=== PATIENT | female | born 1950 | race Caucasian/White ===

== ENCOUNTER → 2017-03-26 | Outpatient (CLI) | payer OTHER ==
--- NOTE | 2017-03-26 14:56 | MAMMOGRAPHY REPORT ---
BILATERAL DIGITAL SCREENING MAMMOGRAM WITH CAD: 03/26/2017 CLINICAL HISTORY: Routine screening. Patient has no complaints. TECHNIQUE: Current study was also evaluated with a Computer Aided Detection (CAD) system. Bilateral CC and MLO views were obtained. COMPARISON: Comparison is made to exams dated: 03/13/2016 mammogram, 02/13/2015 mammogram, 01/19/2014 m ammogram, 12/14/2012 mammogram, 12/30/2011 mammogram, and 12/19/2010 mammogram - [facility] nter. BREAST COMPOSITION: There are scattered areas of fibroglandular density in both breasts. FINDINGS: No suspicious masses, calcifications, or areas of architectural distortion are noted in ei ther breast. There has been no significant interval change compared to prior exams. IMPRESSION: ACR BI-RADS CATEGORY 1: NEGATIVE There is no mammographic evidence of malignancy. A 1 year screening mammogram is recommended. The pa tient will receive written notification of the results. Approximately 10% of breast cancers are not detected with mammography. A negative mammographic report should not delay biopsy if a clinically suggestive mass is present. Yenifer Lock M.D. /:03/26/2017 14:49:23 Forest Officer: Ashutosh Leigh, M, [facility] letter sent: Normal 1/2 BI-RADS Code: ACR BI-RADS Category 1: Negative
== END | disposition home or self-care (01) ==
LOC: C.MAMM 14:09
PROVIDERS: ATTEND Obstetrics & Gynecology
DX: Z12.31 Encounter for screening mammogram for malignant neoplasm of breast (principal)

== ENCOUNTER 2023-05-31 20:19 | Observation (INO) ==
--- NOTE | 2023-05-31 21:23 | Emergency Department Note ---
Impression & Plan Hypertensive urgency, Atypical chest pain ED Provider Note Provider: Mustapha Cartagena MD DATE OF SERVICE: 05/31/2023 CHIEF COMPLAINT: Hypertension, chest discomfort HISTORY OF PRESENT ILLNESS: Patient is a 72-year-old female history of crest syndrome and hypothyroidism presenting here today noting that she has had some high blood pressure readings. This evening however when she was taking her evening blood pressure was significantly elevated in the 180s systolic. States that she is been following at the last several days after meeting with her technical support analyst. As noted previously was in the 130s and 140s systolic. Not on current antihypertensive medications. Reports she saw this and began to panic and be feel anxious. CT lipid discomfort the chest but not true pain. Denies difficulty breathing. Maybe a little bit of tension headaches recently. Denies any new numbness or tingling or significant dizziness. Denies any GI symptoms. States also contributing is the fact that her was at home at the time and she felt safe. Given this came here for evaluation. States he is feeling a good bit better right now. States having little to no tightness in the chest but again denies its pain. No other radiation of pain or discomfort. Does have some stress with family members having surgeries and upcoming travel. Has been try to watch her diet and exercise. Denies again significant use of caffeine or other stimulants. PAST MEDICAL HISTORY: As noted above MEDICATIONS: Reviewed with her home medications at bedside SOCIAL HISTORY: PHYSICAL EXAM: GENERAL: alert and oriented in no acute distress on stretcher Head: normocephalic and atraumatic EYES: No injection, discharge or icterus. NECK: Trachea midline. Supple. ENT: Mucous membranes pink and moist. LUNGS: Airway patent. No retractions or tachypnea. Clear to auscultation HEART: Regular rate and rhythm. No chest wall tenderness ABDOMEN: Soft and non-tender, without guarding or rebound. SKIN: Acyanotic, warm, dry, without rashes EXTREMITIES: Without swelling, tenderness or deformity NEUROLOGICAL: No focal deficits. No aphasia. No facial droop or slurred speech. Ambulatory. EK bpm sinus rhythm with occasional PVCs and PACs. No acute ST segment elevation. QTc 383. Some nonspecific ST changes. CONTINUOUS CARDIAC MONITORING: was ordered and showed a heart rate of 70s-80s bp m in normal sinus rhythm 1 view chest x-ray per my interpretation: No significant cardiomegaly. No evidence of pneumonia, pulmonary edema, pneumothorax, or pleural effusion. No free air under the diaphragm. Patient's laboratory studies and imaging reviewed. Differential includes Benign hypertension, hypertensive emergency, cardiovascular pathology, toxicologic, pheochromocytoma, electrolyte ab normality, renal disease, endorgan damage, as well as other pathologies. IMPRESSION/MEDICAL DECISION MAKING: Patient well-appearing. No focal neurological deficits. Denies significant headache. Maybe little bit of "chest discomfort "but denies true pain. EKG without significant acute ischemic findings. Troponin was sent. Is noted to be somewhat hypertensive here. No syncope or near syncope reported. No significant leg swelling. Chest x-ray appears reassuring on my review without evidence of cardiomegaly or pulmonary edema. Does report some increased blood pressure readings recently but much more tonight. Some component of stress and anxiety may be at play. Doubt CVA. Doubt PE. Benign abdomen doubt acute intra-abdominal pathology. Blood work without significant anemia or leukocytosis. Slight CKD with creatinine 1.26. No signs of liver dysfunction. No signs of pancreatitis. Troponin and TSH completed as well. TSH is slightly elevated 8.2. Troponin returns at 33.2. No priors for comparison here. Negative urinalysis. [facility] Baseline creatinine is 1.2 so she stable. Blood pressure continues to trend in the 170s to 180s systolic here with elevated diastolics as well. Discussed with patient and who is now at bedside findings. Discussed options of observation versus outpatient therapy. Given her uncontrolled hypertension with elevated troponin and still a little bit of discomfort in the chest they did not feel comfortable going home and discussed with the hospitalist stay for observation and care here. Given a dose of labetalol here to try to help with hypertension. This did cause some improvement of blood pressures improving to the 140 systolic. DIAGNOSIS: Hypertensive urgency, atypical chest pain DISPOSITION: Discharge. Patient was agreeable with this plan. Discussed return precautions and advised follow up. Past Med/Surg History Medical History (Updated 05/31/23 @ 22:09 by Mustapha Cartagena M.D.) Pneumonia Surgical History History of D&C History of laparoscopy Diagnostic History of total abdominal hysterectomy Family History Aunt Breast cancer Father Lung cancer Denies family history of Ovarian cancer Colorectal cancer Social History Smoking Status: Never smoker Do You Dip or Chew Tobacco: No; Preferred Language: Wallisian Feels Safe at Home: Yes Allergies Allergies Allergy/AdvReac Type Severity Reaction Status Date / Time No Known Drug Allergies Allergy Unknown Verified 05/31/23 20:58 Home Meds Home Medications Medication Instructions Recorded Confirmed multivitamin (Daily Multi-Vitamin 1 tab PO DAILY 08/02/19 05/31/23 tablet) pantoprazole 40 mg tablet,delayed 40 mg PO BID 08/02/19 05/31/23 release atorvastatin 10 mg tablet 10 mg PO DAILY 05/31/23 05/31/23 levothyroxine 50 mcg tablet 50 mcg PO DAILYBB 05/31/23 05/31/23 Results & Data (ED) Vital Signs Vital Signs - 24 hr 05/31/23 20:23 05/31/23 20:52 05/31/23 20:31 Temperature 36.6 C Temperature Source Temporal Artery Scan Pulse Rate 76 73 79 Pulse Rate from SpO2 Sensor Pulse Rhythm Regular Respiratory Rate 18 13 Respiratory Effort / Characteristics Non-Labored Spontaneous Respiratory Depth Normal Respiratory Pattern Regular Blood Pressure 199/97 H 179/90 H Blood Pressure Mean 131 119 Blood Pressure Position Sitting Pulse Oximetry 100 Oxygen Delivery Method Room Air Room Air Sepsis Recent Fever Within 48 Hours No Sepsis New/Unexplained Change in Mental Status N/A Sepsis Action Taken by Nursing No Action Required 05/31/23 20:49 05/31/23 21:01 05/31/23 21:04 Temperature Temperature Source Pulse Rate 87 78 79 Pulse Rate from SpO2 Sensor 76 79 Pulse Rhythm Respiratory Rate 15 20 14 Respiratory Effort / Characteristics Respiratory Depth Respiratory Pattern Blood Pressure 182/97 H 182/90 H 185/123 H Blood Pressure Mean 125 120 143 Blood Pressure Position Pulse Oximetry 98 100 Oxygen Delivery Method Room Air Room Air Sepsis Recent Fever Within 48 Hours Sepsis New/Unexplained Change in Mental Status Sepsis Action Taken by Nursing 05/31/23 21:30 05/31/23 21:30 05/31/23 22:00 Temperature Temperature Source Pulse Rate 69 Pulse Rate from SpO2 Sensor Pulse Rhythm Respiratory Rate 15 Respiratory Effort / Characteristics Respiratory Depth Respiratory Pattern Blood Pressure 176/108 H 176/108 H 175/92 H Blood Pressure Mean 145 130 133 Blood Pressure Position Pulse Oximetry Oxygen Delivery Method Sepsis Recent Fever Within 48 Hours Sepsis New/Unexplained Change in Mental Status Sepsis Action Taken by Nursing 05/31/23 22:00 05/31/23 22:30 05/31/23 22:30 Temperature Temperature Source Pulse Rate 70 73 Pulse Rate from SpO2 Sensor 70 75 Pulse Rhythm Respiratory Rate 13 22 Respiratory Effort / Characteristics Respiratory Depth Respiratory Pattern Blood Pressure 175/92 H 162/113 H Blood Pressure Mean 119 131 Blood Pressure Position Pulse Oximetry 99 98 Oxygen Delivery Method Sepsis Recent Fever Within 48 Hours Sepsis New/Unexplained Change in Mental Status Sepsis Action Taken by Nursing 05/31/23 22:34 05/31/23 22:34 05/31/23 22:39 Temperature Temperature Source Pulse Rate 71 73 Pulse Rate from SpO2 Sensor 67 Pulse Rhythm Respiratory Rate 18 Respiratory Effort / Characteristics Respiratory Depth Respiratory Pattern Blood Pressure 163/77 H 163/77 H Blood Pressure Mean 130 Blood Pressure Position Pulse Oximetry 99 98 Oxygen Delivery Method Room Air Sepsis Recent Fever Within 48 Hours Sepsis New/Unexplained Change in Mental Status Sepsis Action Taken by Nursing 05/31/23 22:50 05/31/23 20:20 Temperature Temperature Source Pulse Rate 61 82 Pulse Rate from SpO2 Sensor Pulse Rhythm Respiratory Rate 20 Respiratory Effort / Characteristics Respiratory Depth Respiratory Pattern Blood Pressure 140/72 Blood Pressure Mean 94 Blood Pressure Position Pulse Oximetry Oxygen Delivery Method Sepsis Recent Fever Within 48 Hours Sepsis New/Unexplained Change in Mental Status Sepsis Action Taken by Nursing Laboratory Data 05/31/23 20:38 05/31/23 20:38 Lab Results 05/31/23 05/31/23 05/31/23 Range/Units 20:38 20:38 20:38 WBC 5.55 (4.8-10.8) K/ul RBC 4.58 (4.20-5.40) M/uL Hgb 14.5 (12.0-16.0) g/dl Hct 44.1 (37.0-47.0) % MCV 96.3 (80.0-100.0) fL MCH 31.7 (25.0-34.0) pg MCHC 32.9 (32.0-36.0) g/dL RDW Std Deviation 44.4 (36.4-46.3) fL RDW Coeff of Toni 12.5 (11.5-14.5) % Plt Count 176 (130-400) K/uL MPV 9.4 (9.4-12.4) fL Immature Gran % (Auto) 0.4 % Neut % (Auto) 52.8 % Lymph % (Auto) 36.0 % [place] % (Auto) 8.3 % Eos % (Auto) 2.0 % Baso % (Auto) 0.5 % Neut # (Auto) 2.93 (1.40-6.50) K/uL Lymph # (Auto) 2.00 (1.20-3.40) K/uL [place] # (Auto) 0.46 (0.11-0.59) K/uL Eos # (Auto) 0.11 (0.00-0.50) K/uL Baso # (Auto) 0.03 (0.00-0.20) K/uL Immature Gran # (Auto) 0.02 (0.01-0.20) K/uL APTT 27.7 (21.0-31.0) Seconds PTT Ratio 1.0 Sodium 137 (136-145) mmol/L Potassium 3.9 (3.5-5.1) mmol/L Chloride 104 (98-107) mmol/L Carbon Dioxide 27 (21-32) mmol/L Anion Gap 6 (3-11) BUN 26 H (6-23) mg/dl Creatinine 1.26 H (0.6-1.2) mg/dl Est Cr Clr Drug Dosing 34.3 ml/min Est GFR ( Amer) 48.9 ml/min Est GFR (Non-Af Amer) 42.2 ml/min BUN/Creatinine Ratio 20.6 H (10-20) Glucose 130 H (70-99(Fasting)) mg/dl Calcium 9.6 (8.6-10.3) mg/dl Magnesium 2.0 (1.7-2.4) mg/dl Total Bilirubin 0.8 (0.2-1.0) mg/dl AST 26 (13-39) U/L ALT 17 (7-52) U/L Alkaline Phosphatase 63 (34-104) U/L Troponin I High Sens 33.2 H (0-14) pg/ml Total Protein 8.0 (6.0-8.3) gm/dl Albumin 4.8 (3.4-5.0) gm/dl Globulin 3.2 (2.5-4.0) gm/dl Albumin/Globulin Ratio 1.5 (0.9-2) Lipase 49 (11-82) U/L TSH 8.279 H (0.300-4.500) uIu/ml Free T4 0.86 (0.61-1.60) ng/dl Urine Color Urine Appearance (Clear) Urine pH (4.5-7.5) Ur Specific [place] (1.000-1.030) Urine Protein (Negative) Urine Glucose (UA) (Negative) Urine Ketones (Negative) Urine Blood (Negative) Urine Nitrite (Negative) Urine Bilirubin (Negative) Urine Urobilinogen (Negative) Ur Leukocyte Esterase (Negative) 05/31/23 Range/Units 21:19 WBC (4.8-10.8) K/ul RBC (4.20-5.40) M/uL Hgb (12.0-16.0) g/dl Hct (37.0-47.0) % MCV (80.0-100.0) fL MCH (25.0-34.0) pg MCHC (32.0-36.0) g/dL RDW Std Deviation (36.4-46.3) fL RDW Coeff of Toni (11.5-14.5) % Plt Count (130-400) K/uL MPV (9.4-12.4) fL Immature Gran % (Auto) % Neut % (Auto) % Lymph % (Auto) % [place] % (Auto) % Eos % (Auto) % Baso % (Auto) % Neut # (Auto) (1.40-6.50) K/uL Lymph # (Auto) (1.20-3.40) K/uL [place] # (Auto) (0.11-0.59) K/uL Eos # (Auto) (0.00-0.50) K/uL Baso # (Auto) (0.00-0.20) K/uL Immature Gran # (Auto) (0.01-0.20) K/uL APTT (21.0-31.0) Seconds PTT Ratio Sodium (136-145) mmol/L Potassium (3.5-5.1) mmol/L Chloride (98-107) mmol/L Carbon Dioxide (21-32) mmol/L Anion Gap (3-11) BUN (6-23) mg/dl Creatinine (0.6-1.2) mg/dl Est Cr Clr Drug Dosing ml/min Est GFR ( Amer) ml/min Est GFR (Non-Af Amer) ml/min BUN/Creatinine Ratio (10-20) Glucose (70-99(Fasting)) mg/dl Calcium (8.6-10.3) mg/dl Magnesium (1.7-2.4) mg/dl Total Bilirubin (0.2-1.0) mg/dl AST (13-39) U/L ALT (7-52) U/L Alkaline Phosphatase (34-104) U/L Troponin I High Sens (0-14) pg/ml Total Protein (6.0-8.3) gm/dl Albumin (3.4-5.0) gm/dl Globulin (2.5-4.0) gm/dl Albumin/Globulin Ratio (0.9-2) Lipase (11-82) U/L TSH (0.300-4.500) uIu/ml Free T4 (0.61-1.60) ng/dl Urine Color Yellow Urine Appearance Clear (Clear) Urine pH 7.5 (4.5-7.5) Ur Specific [place] 1.005 (1.000-1.030) Urine Protein Negative (Negative) Urine Glucose (UA) Negative (Negative) Urine Ketones Negative (Negative) Urine Blood Negative (Negative) Urine Nitrite Negative (Negative) Urine Bilirubin Negative (Negative) Urine Urobilinogen Negative (Negative) Ur Leukocyte Esterase Negative (Negative) Administered Medications Discontinued Medications Labetalol HCl (Labetalol Hcl Iv 5 Mg/Ml 20ml) 10 mg IV NOW STA Stop: 05/31/23 22:00 Last Admin: 05/31/23 22:39 Dose: 10 mg Documented By: Co-signed By: CYDNEY Discharge Plan Visit Data Chief Complaint: Hypertension Stated Complaint: HIGH BP, CHEST TIGHTNESS ED Provider: Mustapha Cartagena Discharge Problem: Hypertensive urgency, Atypical chest pain Patient Disposition: Being Evaluated by Hospitalist Forms Stand Alone Forms: My [facility] Prescriptions Prescriptions: No Action pantoprazole 40 mg tablet,delayed release (DR/EC) 40 mg PO BID multivitamin [Daily Multi-Vitamin] tablet 1 tab PO DAILY atorvastatin 10 mg tablet 10 mg PO DAILY levothyroxine 50 mcg tablet 50 mcg PO DAILYBB Referrals Referrals: Jah Manriquez, [Primary Care Provider] -
[2023-05-31 21:24] LABS: Basophils # (auto) 0.03 K/uL (0.00-0.20); Basophils % (auto) 0.5 %; Eosinophils # (auto) 0.11 K/uL (0.00-0.50); Hematocrit (blood only) 44.1 % (37.0-47.0); Hemoglobin 14.5 g/dl (12.0-16.0); Immature Granulocytes # (auto) 0.02 K/uL (0.01-0.20); Immature Granulocytes % (auto) 0.4 %; Mean Corpuscular Hemoglobin 31.7 pg (25.0-34.0); Mean Corpuscular Hgb Conc 32.9 g/dL (32.0-36.0); Mean Corpuscular Volume 96.3 fL (80.0-100.0); Mean Platelet Volume 9.4 fL (9.4-12.4); Monocytes # (auto) 0.46 K/uL (0.11-0.59); Monocytes % (auto) 8.3 %; Neutrophils # (auto) 2.93 K/uL (1.40-6.50); Neutrophils % (auto) 52.8 %; Platelet Count 176 K/uL (130-400); RDW Coefficient of Variation 12.5 % (11.5-14.5); RDW Standard Deviation 44.4 fL (36.4-46.3); Red Blood Count 4.58 M/uL (4.20-5.40); White Blood Count 5.55 K/ul (4.8-10.8)
[2023-05-31 21:26] LABS: Albumin Globulin Ratio 1.5 (0.9-2); Albumin Level 4.8 gm/dl (3.4-5.0); BUN Creatinine Ratio 20.6 (10-20); Bilirubin,Total 0.8 mg/dl (0.2-1.0); Calcium 9.6 mg/dl (8.6-10.3); Creatinine Clr Calc Pharmacy 34.3 ml/min; Est GFR (African American) 48.9 ml/min; Est GFR (Non-African American) 42.2 ml/min; Globulin 3.2 gm/dl (2.5-4.0); Potassium 3.9 mmol/L (3.5-5.1)
[2023-05-31 21:33] LABS: Troponin I High Sensitivity 33.2 pg/ml (0-14)
[2023-05-31 21:41] LABS: Appearance Urine Clear (Clear); Bilirubin Urine Negative (Negative); Blood Urine Negative (Negative); Color Urine Yellow; Glucose Urine UA Negative (Negative); Ketones Urine Negative (Negative); Leukocyte Esterase Urine Negative (Negative); Nitrite Urine Negative (Negative); Protein Urine Negative (Negative); Specific Gravity Urine 1.005 (1.000-1.030); Urobilinogen Urine Negative (Negative); pH Urine 7.5 (4.5-7.5)
[2023-05-31 21:42] LABS: Thyroid Stimulating Hormone 8.279 uIu/ml (0.300-4.500)
[2023-05-31] MEDS ORDERED: LABETALOL HCL IV 5 MG/ML 20ML IV STA (21:59)
[2023-05-31 22:18] LABS: T4 Free Thyroxine 0.86 ng/dl (0.61-1.60)
[2023-05-31 23:14] LABS: Partial Thromboplastin Time 27.7 Seconds (21.0-31.0)
[2023-05-31] MEDS ORDERED: hydrOXYzine HCl 10 MG TAB PO PRN (23:50)
[2023-05-31] MEDS ORDERED: SODIUM CHLORIDE 0.9% 1,000 ML IV ONE (23:50)
[2023-06-01] MEDS ORDERED: NITROGLYCERIN SL 0.4 MG/TAB TAB SL PRN (00:13)
[2023-06-01] MEDS ORDERED: ASPIRIN CHEW 324 MG PO STA (01:02)
--- NOTE | 2023-06-01 02:44 | History & Physical Report ---
Date of Service June 01, 2023 Assessment & Plan (1) Hypertensive crisis: Plan: Probable chronic BP elevation with note of LVH on outpatient TTEs Anxiety contributory NTSEMI, progressive troponin elevation PSVT, no recent episodes. hyperlipidemia, on statin Rx hypothyroidism, TSH elevated CRI, creatinine at baseline GERD, stable on PPI hx CREST syndrome Hyperglycemia rule out DM PCU Aspirin and statin Rx for secondary CAD prevention Initiate beta-filipe, IV heparin TTE, Cardiology consult RE NSTEMI N.p.o. until patient seen by cardiology limits invasive ischemic work-up Update lipid profile Check hemoglobin A1c DVT prophylaxis. Heparin Full code Text document was generated using [employer] recognition software. It may contain grammatical or spelling errors. Kindly contact undersigned for clarification of any documentation item in question. History of Present Illness Chief Complaint: Chest pain, uncontrolled blood pressure Primary Care Provider: Jah Manriquez, History obtained from patient and records. Medical history significant for PSVT, hyperlipidemia, hypothyroidism, CRI (baseline creatinine 1.3), GERD, CREST syndrome. Patient seen at [facility]phrology office last month for CKD follow-up. SBP noted to be 150s. Blood pressure also noted to be elevated during dentist appointment few weeks back. Patient instructed to record her blood pressure at home by nephrology provider. Patient started recording home blood pressure readings since last week. SBP 140s to 160s. Intermittent frontal headache symptoms and posterior neck pain. Admits to being an anxious person. Some worries about family members undergoing elective surgery this month. SBP noted to be 180 in the 200s at home tonight. Transient headache symptoms. Patient noted substernal tightness without shortness of breath or radiation. No unusual cough symptoms. Patient consulted ER for evaluation. SBP 190s upon arrival at the ER. IV labetalol administered at the ER. SBP currently 150s. Patient currently comfortable. Aspirin administered at the ER. 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 Allergies Allergy/AdvReac Type Severity Reaction Status Date / Time No Known Drug Allergies Allergy Unknown Verified 05/31/23 20:58 Home Medications Medication Instructions Recorded Confirmed Type multivitamin (Daily Multi-Vitamin 1 tab PO DAILY 08/02/19 05/31/23 History tablet) pantoprazole 40 mg tablet,delayed 40 mg PO BID 12/10/19 10/08/23 History release atorvastatin 10 mg tablet 10 mg PO HS 05/31/23 06/01/23 History levothyroxine 50 mcg tablet 50 mcg PO DAILYBB 05/31/23 05/31/23 History Past Med/Surg History Medical History (Updated 06/01/23 @ 02:53 by Tyrone Davila MD) Pneumonia Surgical History History of D&C History of laparoscopy Diagnostic History of total abdominal hysterectomy Family History Aunt Breast cancer Father Lung cancer Denies family history of Ovarian cancer Colorectal cancer Social History Smoking Status: Never smoker Do You Dip or Chew Tobacco: No; Preferred Language: Albanian Feels Safe at Home: Yes Review of Systems Review of Systems: As per HPI, all other systems reviewed and negative Physical Exam Physical Exam: GENERAL: Comfortable, pleasant, slightly anxious, looks younger than stated age, no respiratory distress SKIN: Normal color, warm HEENT: Bespectacled, [place] palpebral conjunctivae, no ptosis, moist buccal mucosa NECK : Supple, no tenderness CHEST : CTA, no tenderness HEART : RRR, no obvious murmurs ABDOMEN: no distention, nontender EXTREMITIES : No LE swelling/tenderness, no other conspicuous deformities noted NEUROLOGIC : Coherent, no facial asymmetry, no other gross focality Results & Data Results & Data Vital Signs (Past 12 Hours) Vital Signs Temp Pulse Resp BP Pulse Ox O2 Del Method 06/01/23 01:30 76 15 134/71 06/01/23 01:30 134/71 06/01/23 00:20 69 06/01/23 01:00 74 14 142/72 H 97 Room Air 06/01/23 00:00 75 12 140/70 95 05/31/23 22:50 61 140/72 05/31/23 23:30 77 18 152/81 H 05/31/23 23:00 63 20 131/80 05/31/23 20:20 82 05/31/23 22:50 61 20 140/72 05/31/23 22:39 73 163/77 H 05/31/23 22:34 71 18 163/77 H 98 Room Air 05/31/23 22:34 99 05/31/23 22:30 73 22 98 05/31/23 22:30 162/113 H 05/31/23 22:00 70 13 175/92 H 99 05/31/23 22:00 175/92 H 05/31/23 21:30 69 15 176/108 H 05/31/23 21:30 176/108 H 05/31/23 21:04 79 14 185/123 H 100 Room Air 05/31/23 21:01 78 20 182/90 H 98 Room Air 05/31/23 20:49 87 15 182/97 H 05/31/23 20:31 79 13 179/90 H 05/31/23 20:52 73 Room Air 05/31/23 20:23 36.6 C 76 18 199/97 H 100 Room Air Laboratory Results Laboratory Results WBC 5.55 K/ul (4.8-10.8) 05/31/23 20:38 RBC 4.58 M/uL (4.20-5.40) 05/31/23 20:38 Hgb 14.5 g/dl (12.0-16.0) 05/31/23 20:38 Hct 44.1 % (37.0-47.0) 05/31/23 20:38 MCV 96.3 fL (80.0-100.0) 05/31/23 20:38 MCH 31.7 pg (25.0-34.0) 05/31/23 20:38 MCHC 32.9 g/dL (32.0-36.0) 05/31/23 20:38 RDW Std Deviation 44.4 fL (36.4-46.3) 05/31/23 20:38 RDW Coeff of Toni 12.5 % (11.5-14.5) 05/31/23 20:38 Plt Count 176 K/uL (130-400) 05/31/23 20:38 MPV 9.4 fL (9.4-12.4) 05/31/23 20:38 Immature Gran % (Auto) 0.4 % 05/31/23 20:38 Neut % (Auto) 52.8 % 05/31/23 20:38 Lymph % (Auto) 36.0 % 05/31/23 20:38 [place] % (Auto) 8.3 % 05/31/23 20:38 Eos % (Auto) 2.0 % 05/31/23 20:38 Baso % (Auto) 0.5 % 05/31/23 20:38 Neut # (Auto) 2.93 K/uL (1.40-6.50) 05/31/23 20:38 Lymph # (Auto) 2.00 K/uL (1.20-3.40) 05/31/23 20:38 [place] # (Auto) 0.46 K/uL (0.11-0.59) 05/31/23 20:38 Eos # (Auto) 0.11 K/uL (0.00-0.50) 05/31/23 20:38 Baso # (Auto) 0.03 K/uL (0.00-0.20) 05/31/23 20:38 Immature Gran # (Auto) 0.02 K/uL (0.01-0.20) 05/31/23 20:38 APTT 27.7 Seconds (21.0-31.0) 05/31/23 20:38 PTT Ratio 1.0 05/31/23 20:38 Sodium 137 mmol/L (136-145) 05/31/23 20:38 Potassium 3.9 mmol/L (3.5-5.1) 05/31/23 20:38 Chloride 104 mmol/L (98-107) 05/31/23 20:38 Carbon Dioxide 27 mmol/L (21-32) 05/31/23 20:38 Anion Gap 6 (3-11) 05/31/23 20:38 BUN 26 mg/dl (6-23) H 05/31/23 20:38 Creatinine 1.26 mg/dl (0.6-1.2) H 05/31/23 20:38 Est Cr Clr Drug Dosing 34.3 ml/min 05/31/23 20:38 Est GFR ( Amer) 48.9 ml/min 05/31/23 20:38 Est GFR (Non-Af Amer) 42.2 ml/min 05/31/23 20:38 BUN/Creatinine Ratio 20.6 (10-20) H 05/31/23 20:38 Glucose 130 mg/dl (70-99(Fasting)) H 05/31/23 20:38 Calcium 9.6 mg/dl (8.6-10.3) 05/31/23 20:38 Magnesium 2.0 mg/dl (1.7-2.4) 05/31/23 20:38 Total Bilirubin 0.8 mg/dl (0.2-1.0) 05/31/23 20:38 AST 26 U/L (13-39) 05/31/23 20:38 ALT 17 U/L (7-52) 05/31/23 20:38 Alkaline Phosphatase 63 U/L (34-104) 05/31/23 20:38 Troponin I High Sens 477.4 pg/ml (0-14) H* D 05/31/23 23:03 Total Protein 8.0 gm/dl (6.0-8.3) 05/31/23 20:38 Albumin 4.8 gm/dl (3.4-5.0) 05/31/23 20:38 Globulin 3.2 gm/dl (2.5-4.0) 05/31/23 20:38 Albumin/Globulin Ratio 1.5 (0.9-2) 05/31/23 20:38 Lipase 49 U/L (11-82) 05/31/23 20:38 TSH 8.279 uIu/ml (0.300-4.500) H 05/31/23 20:38 Free T4 0.86 ng/dl (0.61-1.60) 05/31/23 20:38 Urine Color Yellow 05/31/23 21:19 Urine Appearance Clear (Clear) 05/31/23 21:19 Urine pH 7.5 (4.5-7.5) 05/31/23 21:19 Ur Specific [place] 1.005 (1.000-1.030) 05/31/23 21:19 Urine Protein Negative (Negative) 05/31/23 21:19 Urine Glucose (UA) Negative (Negative) 05/31/23 21:19 Urine Ketones Negative (Negative) 05/31/23 21:19 Urine Blood Negative (Negative) 05/31/23 21:19 Urine Nitrite Negative (Negative) 05/31/23 21:19 Urine Bilirubin Negative (Negative) 05/31/23 21:19 Urine Urobilinogen Negative (Negative) 05/31/23 21:19 Ur Leukocyte Esterase Negative (Negative) 05/31/23 21:19 CT head: Diagnostic Findings Chest x-ray as per my interpretation no infiltrate no congestion EKG as per my interpretation :Rate 80, NSR, normal axis, ST depression lateral leads, PVCs
--- NOTE | 2023-06-01 02:56 | CT Scan Report ---
Exam(s): CT HEAD Without Contrast EXAM: CT Head Without Intravenous Contrast CLINICAL HISTORY: Reason for exam: bull, htn crisis. TECHNIQUE: Axial computed tomography images of the head/brain without intravenous contrast. CTDI is 75.29 mGy and DLP is 781.9 mGy-cm. Automated exposure control was utilized for the study. A dose lowering technique was utilized adhering to the principles of ALARA. COMPARISON: No relevant prior studies available. FINDINGS: Brain: Minimal periventricular white matter changes, likely related to microangiopathy. No hemorrhage. Ventricles: Unremarkable. No ventriculomegaly. Bones/joints: Unremarkable. No acute fracture. Soft tissues: Unremarkable. Sinuses: Unremarkable as visualized. No acute sinusitis. Mastoid air cells: Unremarkable as visualized. No mastoid effusion. IMPRESSION: Minimal periventricular white matter changes, likely related to microangiopathy. Electronically signed by: Santy Nguyen M.D. 06/01/23 02:55 AM
[2023-06-01] MEDS ORDERED: traMADol HCL 50 MG TABLET PO PRN (03:18)
[2023-06-01] MEDS ORDERED: PROMETHAZINE HCL 6.25 MG in SODIUM CHLORIDE 0.9% 50 ML IV PRN (03:18)
[2023-06-01] MEDS ORDERED: HYDROmorphone INJ 0.5 MG/0.5 ML SYR IV PRN (03:18)
[2023-06-01] MEDS ORDERED: Heparin IV Adult Wt-Based Standard *NO* Bolus Protocol IV SCH (03:23)
[2023-06-01] MEDS: HEPARIN SODIUM/DEXTROSE 25,000 UNITS/500 ML BAG IV SCH (04:56)
[2023-06-01 06:10] LABS: Basophils # (auto) 0.02 K/uL (0.00-0.20); Basophils % (auto) 0.4 %; Eosinophils # (auto) 0.04 K/uL (0.00-0.50); Eosinophils % (auto) 0.8 %; Hematocrit (blood only) 38.5 % (37.0-47.0); Hemoglobin 12.9 g/dl (12.0-16.0); Immature Granulocytes # (auto) 0.01 K/uL (0.01-0.20); Immature Granulocytes % (auto) 0.2 %; Lymphocytes # (auto) 1.24 K/uL (1.20-3.40); Lymphocytes % (auto) 23.9 %; Mean Corpuscular Hemoglobin 31.5 pg (25.0-34.0); Mean Corpuscular Hgb Conc 33.5 g/dL (32.0-36.0); Mean Corpuscular Volume 94.1 fL (80.0-100.0); Mean Platelet Volume 9.1 fL (9.4-12.4); Monocytes # (auto) 0.51 K/uL (0.11-0.59); Monocytes % (auto) 9.8 %; Neutrophils # (auto) 3.37 K/uL (1.40-6.50); Neutrophils % (auto) 64.9 %; Platelet Count 155 K/uL (130-400); RDW Coefficient of Variation 12.5 % (11.5-14.5); RDW Standard Deviation 43.4 fL (36.4-46.3); Red Blood Count 4.09 M/uL (4.20-5.40); White Blood Count 5.19 K/ul (4.8-10.8)
[2023-06-01 06:17] LABS: Calcium 8.7 mg/dl (8.6-10.3); Creatinine Clr Calc Pharmacy 43.2 ml/min; Est GFR (African American) 64.7 ml/min; Est GFR (Non-African American) 55.8 ml/min; Potassium 3.9 mmol/L (3.5-5.1)
[2023-06-01 06:25] LABS: Troponin I High Sensitivity 625.1 pg/ml (0-14)
[2023-06-01] MEDS: LEVOTHYROXINE SODIUM 50 MCG TABLET PO SCH (06:33)
--- NOTE | 2023-06-01 07:39 | Cardiology Consultation ---
Date of Consultation June 01, 2023 Assessment & Plan (1) Hypertensive urgency: (2) CREST syndrome: (3) Elevated troponin: (4) Mitral regurgitation: (5) MVP (mitral valve prolapse): Plan Impression: 72-year-old female with symptomatic hypertension. Echocardiogram with normal LV systolic function and mild concentric LVH. Moderate to severe MR with mitral leaflet prolapse, possibly due to significant hypertension. Elevated troponin peaking at 690, likely in the setting of demand/markedly elevated blood pressures however increased risk for coronary disease with crest syndrome. Plan: Blood pressures remain hypertensive. Start lisinopril 2.5 mg daily. Continue metoprolol tartrate 12.5 mg twice daily. Continue aspirin 81 mg daily and statin therapy for cardiovascular risk reduction. Once blood pressures are controlled consider stress testing to rule out Ischemic cause. Okay to advance diet. Case discussed with Dr. Jones, will follow. Supervising Physician Co-Signing Physician Notes Patient seen and personally examined. Patient hospitalized with acute worsening hypertension blood pressures are being treated now trending towards better contr ol. Mild breathlessness and chest tightness at times but no prior history of myocardial infarction or injury. EKG and echocardiogram without evidence of myocardial infarction Troponins are however significantly elevated. 1. Severe hypertension hypertensive urgency possible association with known history of crest syndrome. Medications begun as above will likely need upward titration with careful follow-up of renal function 2. Moderate to severe mitral insufficiency will follow closely no signs of heart failure on exam 3. Elevated troponin question secondary to hypertension future investigation stress test versus diagnostic cardiac catheterization depending on clinical course serial EKGs ordered 4. Crest syndrome: Acute renal insufficiency and marked hypertension not uncommon complication History of Present Illness Reason for Consultation: Hypertension Requesting Physician: Zack uriostegui Attending Physician: Nicole aDvis MD History of Present Illness 72-year-old female with past medical history as noted below presented to [facility] emergency department due to markedly elevated blood pressures with systolics ranging in the 180s to 200s. Patient was symptomatic with headaches and substernal chest tightness. Treated with IV labetalol in the emergency department. Hypertension is a relatively new diagnosis for her. Was recently seen by her air liaison and special staff with an elevated blood pressure and again by her dentist. Over the last week she has been watching her blood pressures at home noting systolics averaging in the 140s to 150s. This morning blood pressure was 180/90 which concerned her given her symptoms. She is not currently on any antihypertensive medications at home. Workup thus far: Renal function/electrolytes and CBC stable. TSH elevated with normal free T4. Elevated high-sensitivity troponin (33.2>>477.4>>690.7>>625.1). EKG showing SR, nonspecific T wave changes Echo: LVEF normal at 60 to 65% without wall motion abnormality. Mild concentric LVH. Moderate to severe MR. Mild TR. No pulmonary hypertension. Head CT without acute findings/hemorrhage. CXR clear. Upon entrance into the room patient resting comfortably in bed. No acute distress. Continues to have some mild chest tightness which she attributes to stress and anxiety. No exertional chest pain. No shortness of breath. Denies palpitations no lightheadedness or dizziness. No orthopnea or PND. No lower extremity edema. Tele: NSR 60s Past medical history: History of symptomatic palpitations secondary to PACs/PVCs and paroxysmal SVT Hyperlipidemia Hypothyroidism Crest syndrome Raynaud's CKD (baseline scr 1.3) GERD Allergies Allergy/AdvReac Type Severity Reaction Status Date / Time No Known Drug Allergies Allergy Unknown Verified 05/31/23 20:58 Home Medications Medication Instructions Recorded Confirmed Type multivitamin (Daily Multi-Vitamin 1 tab PO DAILY 08/02/19 05/31/23 History tablet) pantoprazole 40 mg tablet,delayed 40 mg PO BID 08/02/19 05/31/23 History release atorvastatin 10 mg tablet 10 mg PO HS 05/31/23 06/01/23 History levothyroxine 50 mcg tablet 50 mcg PO DAILYBB 05/31/23 05/31/23 History Patient History Medical History (Updated 06/01/23 @ 11:47 by COLBY Garcia) Pneumonia Surgical History History of D&C History of laparoscopy Diagnostic History of total abdominal hysterectomy Family History Aunt Breast cancer Father Lung cancer Denies family history of Ovarian cancer Colorectal cancer Social History Smoking Status: Never smoker Do You Dip or Chew Tobacco: No; Hx Alcohol Use: No Hx Substance Use: No Preferred Language: Serbian Communication Ability: Effective 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 Beliefs That Will Affect Care: Tenriism Current Living Situation: Spouse Other Information That Helps Us Care for You: No Feels Safe at Home: Yes Safety Concerns: Feels Safe At This Time Review of Systems Review of Systems: All systems reviewed & are unremarkable except as noted in HPI & below Physical Exam Constitutional: WD/WN, vitals as above no acute distress Eyes: PERRL, conjunctivae normal, anicteric sclerae ENMT: external ear and nose normal, oropharynx normal Neck: normal visual inspection and trachea midline Respiratory: normal respiratory effort, lungs clear to auscultation Cardiovascular: Rate/Rhythm: regular rate and regular rhythm Heart Sounds: normal S1, normal S2 and + murmur (+systolic murmur) Vessels: no JVD Extremities: no edema Gastrointestinal (Abdomen): normal bowel sounds, soft, nontender, no hepatosplenomegaly Psychiatric: A+Ox3, euthymic affect Results & Data Vital Signs (Past 12 Hours) Vital Signs Temp Pulse Resp BP Pulse Ox O2 Del Method 06/01/23 07:22 70 06/01/23 06:30 61 15 96 Room Air 06/01/23 06:30 134/77 06/01/23 06:39 Room Air 06/01/23 06:00 60 17 134/66 96 Room Air 06/01/23 05:00 63 15 154/81 H 99 Room Air 06/01/23 04:30 83 18 165/84 H 98 Room Air 06/01/23 04:11 76 15 177/93 H 98 Room Air 06/01/23 03:00 63 17 120/62 06/01/23 03:47 54 L 06/01/23 02:30 67 16 143/80 H 06/01/23 02:00 68 15 130/68 06/01/23 01:30 76 15 134/71 06/01/23 01:30 134/71 06/01/23 00:20 69 06/01/23 01:00 74 14 142/72 H 97 Room Air 06/01/23 00:00 75 12 140/70 95 05/31/23 22:50 61 140/72 05/31/23 23:30 77 18 152/81 H 05/31/23 23:00 63 20 131/80 05/31/23 20:20 82 05/31/23 22:50 61 20 140/72 05/31/23 22:39 73 163/77 H 05/31/23 22:34 71 18 163/77 H 98 Room Air 05/31/23 22:34 99 05/31/23 22:30 73 22 98 05/31/23 22:30 162/113 H 05/31/23 22:00 70 13 175/92 H 99 05/31/23 22:00 175/92 H 05/31/23 21:30 69 15 176/108 H 05/31/23 21:30 176/108 H 05/31/23 21:04 79 14 185/123 H 100 Room Air 05/31/23 21:01 78 20 182/90 H 98 Room Air 05/31/23 20:49 87 15 182/97 H 05/31/23 20:31 79 13 179/90 H 05/31/23 20:52 73 Room Air 05/31/23 20:23 36.6 C 76 18 199/97 H 100 Room Air Laboratory Results Cardiac Enzymes 05/31/23 05/31/23 06/01/23 Range/Units 20:38 23:03 02:28 AST 26 (13-39) U/L Troponin I High Sens 33.2 H 477.4 H* D 690.7 H* D (0-14) pg/ml 06/01/23 Range/Units 05:39 AST (13-39) U/L Troponin I High Sens 625.1 H* (0-14) pg/ml Coagulation 05/31/23 06/01/23 Range/Units 20:38 10:33 APTT 27.7 72.0 H* (21.0-31.0) Seconds Lipids 06/01/23 Range/Units 05:39 Triglycerides 54 (0-150) mg/dl Cholesterol 146 (0-200) mg/dl HDL Cholesterol 72 mg/dl Cholesterol/HDL Ratio 2.0 (0-5) CBC 05/31/23 06/01/23 Range/Units 20:38 05:39 WBC 5.55 5.19 (4.8-10.8) K/ul RBC 4.58 4.09 L (4.20-5.40) M/uL Hgb 14.5 12.9 (12.0-16.0) g/dl Hct 44.1 38.5 (37.0-47.0) % Plt Count 176 155 (130-400) K/uL Neut # (Auto) 2.93 3.37 (1.40-6.50) K/uL Lymph # (Auto) 2.00 1.24 (1.20-3.40) K/uL [place] # (Auto) 0.46 0.51 (0.11-0.59) K/uL Eos # (Auto) 0.11 0.04 (0.00-0.50) K/uL Baso # (Auto) 0.03 0.02 (0.00-0.20) K/uL Comprehensive Metabolic Panel 05/31/23 06/01/23 Range/Units 20:38 05:39 Sodium 137 141 (136-145) mmol/L Potassium 3.9 3.9 (3.5-5.1) mmol/L Chloride 104 110 H (98-107) mmol/L Carbon Dioxide 27 24 (21-32) mmol/L BUN 26 H 21 (6-23) mg/dl Creatinine 1.26 H 1.00 (0.6-1.2) mg/dl Glucose 130 H 108 H (70-99(Fasting)) mg/dl Calcium 9.6 8.7 (8.6-10.3) mg/dl AST 26 (13-39) U/L ALT 17 (7-52) U/L Alkaline Phosphatase 63 (34-104) U/L Total Protein 8.0 (6.0-8.3) gm/dl Albumin 4.8 (3.4-5.0) gm/dl Intake and Output 05/31/23 06/01/23 06/01/23 22:59 06:59 14:59 Intake Total 0 / 0 Balance 0 / 0 Intake: Oral 0 / 0 Other: Weight 54.6 kg 54.7 kg Weight Measurement Method Chair Scale Built in [facility] Diagnostic Findings Echo 06/01/2023: LVEF 60 to 65% without wall motion abnormalities. Mild concentric LVH. Basal septum thickened consistent with sigmoid septum. Mitral valve leaflets are mildly thickened with borderline prolapse of the posterior leaflet. Moderate to severe MR. Mild TR. No pulmonary hypertension Outpatient echocardiogram 10/29/2021 The examination is adequate to evaluate the referral indication. The left ventricular cavity size is normal. The LV wall thickness is mildly increased (concentric). The left ventricular wall motion is normal. The qualitative LV ejection fraction is 60-64% (normal). The left ventricular diastolic function is moderately abnormal (grade II). Mild tricuspid regurgitation is present. The estimated pulmonary artery systolic pressure is 30-35mm Hg.
--- NOTE | 2023-06-01 07:44 | XRay Report ---
XR chest 1V portable HISTORY: 72 years-old Female Hypertension, CP acute chest pain with hypertension COMPARISON: None TECHNIQUE: AP view of the chest FINDINGS: Cardiomediastinal and hilar silhouettes are within normal limits. No pneumothorax, pleural effusion, airspace consolidation or pulmonary edema. Bones appear grossly intact. Mild dextroscoliosis of the t horacolumbar junction. IMPRESSION: No acute process. ACT 112: Negative or not required by law. The above report was generated using voice recognition software. It may contain grammatical, syntax o r spelling errors. Electronically signed by: Duarte Beck M.D. 06/01/2023 7:42 AM
[2023-06-01 07:51] LABS: Estimated Average Glucose 117 mg/dl; Hemoglobin A1C 5.7 % (4.5-5.6)
[2023-06-01] MEDS: METOPROLOL TARTRATE 25 MG TAB PO SCH ×2 (08:34→20:37)
[2023-06-01] MEDS: MULTIVITAMIN TAB PO SCH (08:34)
[2023-06-01] MEDS: PANTOprazole 40 MG TAB PO SCH ×2 (08:34→20:38)
[2023-06-01 11:34] LABS: Partial Thromboplastin Ratio 2.6
[2023-06-01] MEDS ORDERED: lisinopril 2.5 MG TAB PO SCH (11:45)
--- NOTE | 2023-06-01 12:30 | Electrocardiogram Report ---
Test Reason : Blood Pressure : / mmHG Vent. Rate : 082 BPM Atrial Rate : 082 BPM P-R Int : 120 ms QRS Dur : 076 ms QT Int : 328 ms P-R-T Axes : 058 073 040 degrees QTc Int : 383 ms Sinus rhythm with occasional Premature ventricular complexes and Premature atrial complexes Nonspecific ST and T wave abnormality Abnormal ECG No previous ECGs available Confirmed by Ok Morse ([id number]) on 06/01/2023 12:30:00 PM Referred By: REFERRED SELF Confirmed By:Ok Morse
--- NOTE | 2023-06-01 12:35 | Electrocardiogram Report ---
Test Reason : Blood Pressure : / mmHG Vent. Rate : 067 BPM Atrial Rate : 067 BPM P-R Int : 142 ms QRS Dur : 084 ms QT Int : 410 ms P-R-T Axes : 075 014 044 degrees QTc Int : 433 ms Normal sinus rhythm Septal infarct , age undetermined Abnormal ECG When compared with ECG of 31-MAY-2023 20:28, (unconfirmed) Premature ventricular complexes are no longer Present Premature atrial complexes are no longer Present Nonspecific T wave abnormality, improved in Inferior leads T wave amplitude has increased in Lateral leads Confirmed by Ok Morse ([id number]) on 06/01/2023 12:35:20 PM Referred By: REFERRED SELF Confirmed By:Ok Morse
--- NOTE | 2023-06-01 12:49 | Hospitalist Progress Note ---
Date of Service June 01, 2023 Assessment & Plan (1) Hypertensive urgency: Plan 72-year-old lady with PMH of PSVT, HLD, hypothyroidism, CKD [baseline creatinine 1.3], GERD, crest syndrome came in with complaint of elevated blood pressure associated with intermittent frontal headache symptoms and posterior neck pain and some chest heaviness. She is being managed for the following: Hypertensive urgency Patient noted to have high blood pressure in the outpatient settings lately. And instructed to maintain a log of blood pressure measurement. Patient making record of her blood pressure as an outpatient, fairly elevated. Outpatient echo from 11/18/2021 with EF of 60 to 64%, mild concentric LVH. Patient started on aspirin, metoprolol, lisinopril Blood pressure getting better, continue to monitor in telemetry ?NSTEMI pt came in w/ c/o chest heaviness Troponin elevated at 33 at presentation, trended up to 625. Admitting EKG with nonspecific ST and T abnormality. Follow-up with EKG with increasing T wave amplitude in lateral leads. Echo with EF of 60 to 65%, mild concentric LVH. Left ventricular size and wall motion and systolic function normal. Moderate to severe MR. Continue with heparin gtt. Cardiology on board, appreciate recommendation. Other chronic medical conditions: Continue with/resume home meds as and when able. PSVT, no recent episodes. hyperlipidemia, LDL 63, on statin Rx hypothyroidism, TSH elevated. Repeat TFT in 6 weeks. CRI, creatinine at baseline GERD, stable on PPI hx CREST syndrome Hyperglycemia rule out DM, prediabetes, A1c 5.7, repeat A1c in 3 months. Lifestyle modification encouraged. DVT prophylaxis: on heparin gtt. Full code Admission and Anticipated Discharge Date Admission Date: June 01, 2023 Subjective Patient was seen and examined at bedside. Patient was sitting up in bed, on room air, resting comfortably, not in any acute distress. Patient denies chest pain or palpitation, reports chest heaviness getting better. Patient denies any fever/chills/sore throat/cough/changes with her bowel or bladder habits. Physical Exam Physical Exam: GENERAL: Alert and oriented x3. NAD, on RA. HEENT: No pallor, no icterus. Pupils equal, round and reactive to light. Oral mucosa moist. NECK: No JVD, no neck masses. HEART: S1 and S2 heard. Regular rate and rhythm. No murmur, no gallop. RESPIRATORY SYSTEM: Normal AP diameter. No accessory muscle use. No wheezing, no crackles. ABDOMEN: Soft, bowel sounds present, nontender, no distention. CENTRAL NERVOUS SYSTEM: No facial droop. Speech is clear. Obeys simple commands. Moves extremities. EXTREMITIES: No edema, no erythema seen. Results & Data Results & Data Vital Signs (Past 12 Hours) Vital Signs Pulse Pulse Resp BP BP Pulse Ox O2 Del Method 06/01/23 10:26 52 L 20 162/82 H 98 Room Air 06/01/23 08:14 69 20 163/97 H 98 Room Air 06/01/23 07:22 70 06/01/23 06:30 61 15 96 Room Air 06/01/23 06:30 134/77 06/01/23 06:39 Room Air 06/01/23 06:00 60 17 134/66 96 Room Air 06/01/23 05:00 63 15 154/81 H 99 Room Air 06/01/23 04:30 83 18 165/84 H 98 Room Air 06/01/23 04:11 76 15 177/93 H 98 Room Air 06/01/23 03:00 63 17 120/62 06/01/23 03:47 54 L 06/01/23 02:30 67 16 143/80 H 06/01/23 02:00 68 15 130/68 06/01/23 01:30 76 15 134/71 06/01/23 01:30 134/71 06/01/23 01:00 74 14 142/72 H 97 Room Air
[2023-06-01 18:54] LABS: Partial Thromboplastin Ratio 3.5
[2023-06-01 18:58] LABS: Partial Thromboplastin Time 99.6 Seconds (21.0-31.0)
[2023-06-01] MEDS: ATORVASTATIN 10 MG TAB PO SCH (20:37)
[2023-06-01 23:50] LABS: Partial Thromboplastin Ratio 2.3
[2023-06-01 23:51] LABS: Partial Thromboplastin Time 63.6 Seconds (21.0-31.0)
[2023-06-02 03:13] LABS: BUN Creatinine Ratio 18.6 (10-20); Calcium 8.9 mg/dl (8.6-10.3); Creatinine Clr Calc Pharmacy 38.3 ml/min; Est GFR (African American) 55.8 ml/min; Est GFR (Non-African American) 48.2 ml/min; Phosphorus 3.2 mg/dl (2.5-4.9); Potassium 4.1 mmol/L (3.5-5.1)
[2023-06-02 03:18] LABS: Partial Thromboplastin Ratio 2.9
[2023-06-02 03:30] LABS: Partial Thromboplastin Time 82.9 Seconds (21.0-31.0)
[2023-06-02] MEDS: LEVOTHYROXINE SODIUM 50 MCG TABLET PO SCH (06:01)
[2023-06-02] MEDS: HEPARIN SODIUM/DEXTROSE 25,000 UNITS/500 ML BAG IV SCH (06:01)
--- NOTE | 2023-06-02 07:40 | Cardiology Progress Note ---
Date of Service June 02, 2023 Assessment & Plan (1) Hypertensive urgency: (2) CREST syndrome: (3) Elevated troponin: (4) Mitral regurgitation: (5) MVP (mitral valve prolapse): Plan Impression: 72-year-old female with a past medical history of crest syndrome hospitalized with acute worsening hypertension associated with chest tightness and mild breathlessness. EKGs and echo without evidence of myocardial infarction however high-sensitivity troponin are significantly elevated, peaked at 690. Plan: Hypertensive Urgency: Blood pressures remain hypertensive but trending towards better control. Increase lisinopril to 5 mg daily. Transition metoprolol tartrate to metoprolol succinate 12.5 mg BID. Severe hypertension/hypertensive urgency possibly associated with known history of crest syndrome. Moderate to severe mitral insufficiency noted on echo without evidence of heart failure; possibly due to significant hypertension. Elevated troponin question secondary to hypertension, future investigation with stress test versus diagnostic cardiac catheterization pending clinical course-- will defer to Dr. Jones's assessment and reccomendations. Currently maintained on heparin gtt. Continue aspirin 81 mg daily and statin therapy for cardiovascular risk reduction. LDL currently controlled at 63. Current syndrome: Acute renal insufficiency and marked hypertension not uncommon complication. Case discussed with Dr. Jones, will follow. Admission and Anticipated Discharge Date Admission Date: June 01, 2023 Supervising Physician Co-Signing Physician Notes Patient seen and examined, chart, medications, telemetry reviewed. Full assessment and documentation as above Blood pressure coming under better control on current therapies with adjustments as above. Tolerating current medications No further chest tightness or pain this morning Significant troponin elevation though without acute EKG changes. Discussed options of evaluation. Will recommend diagnostic coronary angiography as expect this will be a recurrent issue Findings will aid in management as well as choice of antihypertensive therapies Procedure scheduled for a.m. n.p.o. after midnight tonight Continue therapeutic IV heparin Subjective 72-year-old female with a past medical history of crest syndrome hospitalized with acute worsening hypertension associated with chest tightness and mild breathlessness. EKGs and echo without evidence of myocardial infarction however high-sensitivity troponins are significantly elevated. 06/01: Blood pressures averaging in the 160s to 170s systolic. Lisinopril 2.5 mg daily was started. Heart rates averaging in the 50s and 60s, maintained on metoprolol tartrate 12 and half milligrams twice daily. Due to chest pain and elevated troponins heparin infusion started. Patient maintained on aspirin 81 mg daily. 06/02: Labs: Renal function stable. Upon entrance into the room patient resting comfortably in bed. No acute concerns. No return of chest pain. Denies shortness of breath. No palpitations, li ghtheadedness, or dizziness. No head ache. No orthopnea or PND. No lower extremity edema. Review of Systems Review of Systems: All systems reviewed & are unremarkable except as noted in HPI & below Physical Exam Constitutional: WD/WN, vitals as above no acute distress Eyes: PERRL, conjunctivae normal, anicteric sclerae ENMT: external ear and nose normal, oropharynx normal Neck: normal visual inspection and trachea midline Respiratory: normal respiratory effort, lungs clear to auscultation Cardiovascular: Rate/Rhythm: regular rate and regular rhythm Heart Sounds: normal S1, normal S2 and + murmur (+systolic murmur) Vessels: no JVD Extremities: no edema Gastrointestinal (Abdomen): normal bowel sounds, soft, nontender, no hepatosplenomegaly Psychiatric: A+Ox3, euthymic affect Results & Data Vital Signs (Past 12 Hours) Vital Signs Temp Pulse Pulse Resp BP Pulse Ox O2 Del Method 06/02/23 07:31 36.6 C 53 L 16 149/74 H 96 Room Air 06/02/23 03:25 36.7 C 51 L 16 129/66 99 Room Air 06/01/23 23:00 36.8 C 54 L 16 122/57 L 96 Room Air 06/01/23 22:00 56 L 06/01/23 20:00 Room Air 06/01/23 19:55 36.8 C 69 18 156/91 H 97 Room Air Laboratory Results Coagulation 06/01/23 06/01/23 06/01/23 Range/Units 10:33 17:55 22:46 APTT 72.0 H* 99.6 H* 63.6 H* (21.0-31.0) Seconds 06/02/23 Range/Units 02:36 APTT 82.9 H* (21.0-31.0) Seconds Comprehensive Metabolic Panel 06/02/23 Range/Units 02:36 Sodium 138 (136-145) mmol/L Potassium 4.1 (3.5-5.1) mmol/L Chloride 109 H (98-107) mmol/L Carbon Dioxide 25 (21-32) mmol/L BUN 21 (6-23) mg/dl Creatinine 1.13 (0.6-1.2) mg/dl Glucose 102 H (70-99(Fasting)) mg/dl Calcium 8.9 (8.6-10.3) mg/dl Intake and Output 06/01/23 06/02/23 06/02/23 22:59 06:59 14:59 Intake Total 337.433 / 6798.865 5920.116 / 1639.549 Balance 337.433 / 5086.715 2400.116 / 1639.549 Intake: IV 137.433 / 7236.532 9022.116 / 1439.549 Heparin Sodium/Dextrose 25,000 137.433 / 439.549 158.116 / 439.549 units In 500 ml @ 800 UNITS/HR 16 mls/hr IV .Q24H GENNY Rx#: [id number] Sodium Chloride 0.9% 1,000 ml @ 1000 / 1000 40 mls/hr IV .Q24H ONE Rx#: [id number] Oral 200 / 200 Other: # Unmeasured Voids 1 1 Weight 52.1 kg Weight Measurement Method Standing Scale
[2023-06-02] MEDS: PANTOprazole 40 MG TAB PO SCH ×2 (08:01→20:07)
[2023-06-02] MEDS: MULTIVITAMIN TAB PO SCH (08:01)
[2023-06-02] MEDS: lisinopril 5 MG TAB PO SCH (08:02)
[2023-06-02] MEDS: METOPROLOL TARTRATE 25 MG TAB PO SCH (08:02)
[2023-06-02] MEDS: ASPIRIN 81 MG ECTAB PO SCH (08:02)
[2023-06-02 10:41] LABS: Partial Thromboplastin Ratio 2.7
[2023-06-02 10:46] LABS: Partial Thromboplastin Time 77.4 Seconds (21.0-31.0)
[2023-06-02 12:26] LABS: Partial Thromboplastin Ratio 2.6
[2023-06-02 13:10] LABS: Partial Thromboplastin Time 72.3 Seconds (21.0-31.0)
--- NOTE | 2023-06-02 15:49 | Electrocardiogram Report ---
Test Reason : Blood Pressure : / mmHG Vent. Rate : 053 BPM Atrial Rate : 053 BPM P-R Int : 140 ms QRS Dur : 078 ms QT Int : 492 ms P-R-T Axes : 077 022 060 degrees QTc Int : 461 ms Sinus bradycardia Septal infarct (cited on or before 01-JUN-2023) Abnormal ECG When compared with ECG of 01-JUN-2023 01:34, T wave amplitude has increased in Anterior leads Confirmed by Ok Morse ([id number]) on 06/02/2023 3:49:02 PM Referred By: REFERRED SELF Confirmed By:Ok Morse
--- NOTE | 2023-06-02 16:13 | Hospitalist Progress Note ---
Date of Service June 02, 2023 Assessment & Plan (1) Hypertensive urgency: Plan 72-year-old lady with PMH of PSVT, HLD, hypothyroidism, CKD [baseline creatinine 1.3], GERD, crest syndrome came in with complaint of elevated blood pressure associated with intermittent frontal headache symptoms and posterior neck pain and some chest heaviness. She is being managed for the following: Hypertensive urgency Patient noted to have high blood pressure in the outpatient settings lately. And instructed to maintain a log of blood pressure measurement. Patient making record of her blood pressure as an outpatient, fairly elevated. Outpatient echo from 11/18/2021 with EF of 60 to 64%, mild concentric LVH. Patient started on aspirin, metoprolol, lisinopril Blood pressure getting better, continue to monitor in telemetry ?NSTEMI pt came in w/ c/o chest heaviness Troponin elevated at 33 at presentation, trended up to 625. Admitting EKG with nonspecific ST and T abnormality. Follow-up with EKG with increasing T wave amplitude in lateral leads. Echo with EF of 60 to 65%, mild concentric LVH. Left ventricular size and wall motion and systolic function normal. Moderate to severe MR. Continue with heparin gtt. Cardiology on board, appreciate recommendation. Plan for cardiac cath tomorrow. N.p.o. midnight. Other chronic medical conditions: Continue with/resume home meds as and when able. PSVT, no recent episodes. hyperlipidemia, LDL 63, on statin Rx hypothyroidism, TSH elevated. Repeat TFT in 6 weeks. CRI, creatinine at baseline GERD, stable on PPI hx CREST syndrome Hyperglycemia rule out DM, prediabetes, A1c 5.7, repeat A1c in 3 months. Lifestyle modification encouraged. DVT prophylaxis: on heparin gtt. Full code Admission and Anticipated Discharge Date Admission Date: June 01, 2023 Subjective Patient was seen and examined at bedside. Patient was sitting up in chair, reading books, on room air, resting comfortably, not in any acute distress. Patient denies any further chest pain or palpitation. Patient denies any fever/chills/sore throat/cough/changes with her bowel or bladder habits. Physical Exam Physical Exam: GENERAL: Alert and oriented x3. NAD, on RA. HEENT: No pallor, no icterus. Pupils equal, round and reactive to light. Oral mucosa moist. NECK: No JVD, no neck masses. HEART: S1 and S2 heard. Regular rate and rhythm. No murmur, no gallop. RESPIRATORY SYSTEM: Normal AP diameter. No accessory muscle use. No wheezing, no crackles. ABDOMEN: Soft, bowel sounds present, nontender, no distention. CENTRAL NERVOUS SYSTEM: No facial droop. Speech is clear. Obeys simple commands. Moves extremities. EXTREMITIES: No edema, no erythema seen. Results & Data Results & Data Vital Signs (Past 12 Hours) Vital Signs Temp Pulse Resp BP Pulse Ox O2 Del Method 06/02/23 15:48 36.8 C 61 17 151/80 H 99 Room Air 06/02/23 10:59 37.0 C 54 L 16 120/68 97 Room Air 06/02/23 08:00 Room Air 06/02/23 07:31 36.6 C 53 L 16 149/74 H 96 Room Air
[2023-06-02 16:15] LABS: Partial Thromboplastin Ratio 2.2
[2023-06-02 16:27] LABS: Partial Thromboplastin Time 63.4 Seconds (21.0-31.0)
[2023-06-02] MEDS: ATORVASTATIN 10 MG TAB PO SCH (20:07)
[2023-06-02] MEDS: METOPROLOL SUCC 25MG EXT REL TAB PO SCH (20:07)
[2023-06-03] MEDS ORDERED: SODIUM CHLORIDE 0.9% 1,000 ML IV SCH
[2023-06-03 00:09] LABS: Partial Thromboplastin Ratio 2.3
[2023-06-03 00:17] LABS: Partial Thromboplastin Time 64.6 Seconds (21.0-31.0)
[2023-06-03] MEDS: HEPARIN SODIUM/DEXTROSE 25,000 UNITS/500 ML BAG IV SCH (04:07)
[2023-06-03] MEDS: LEVOTHYROXINE SODIUM 50 MCG TABLET PO SCH (05:23)
[2023-06-03 07:21] LABS: BUN Creatinine Ratio 22.4 (10-20); Calcium 8.9 mg/dl (8.6-10.3); Creatinine Clr Calc Pharmacy 35.1 ml/min; Est GFR (African American) 54.1 ml/min; Est GFR (Non-African American) 46.7 ml/min; Phosphorus 3.4 mg/dl (2.5-4.9); Potassium 4.2 mmol/L (3.5-5.1)
[2023-06-03 07:31] LABS: Partial Thromboplastin Ratio 2.8
--- NOTE | 2023-06-03 07:38 | Cardiology Progress Note ---
Date of Service June 03, 2023 Assessment & Plan (1) Hypertensive urgency: (2) CREST syndrome: (3) Elevated troponin: (4) Mitral regurgitation: (5) MVP (mitral valve prolapse): Plan Impression: 72-year-old female with a past medical history of crest syndrome hospitalized with acute worsening hypertension associated with chest tightness and mild breathlessness. EKGs and echo without evidence of myocardial infarction however high-sensitivity troponin are significantly elevated, peaked at 690. Plan: Hypertensive Urgency: BP trending towards improved control the last 24 hours. Continue Lisinopril 5 mg daily Continue metoprolol succinate 12.5 mg BID. Severe hypertension/hypertensive urgency possibly associated with known history of crest syndrome. Moderate to severe mitral insufficiency noted on echo without evidence of heart failure; possibly due to significant hypertension. Proceeding with diagnostic cardiac cath this afternoon to rule out hemodynamically signifant CAD given elevated HS trop on admission + CP symptoms. Currently on heparin gtt. Continue aspirin 81 mg daily and statin therapy for cardiovascular risk reduction. LDL currently controlled at 63. CREST syndrome: Acute renal insufficiency and marked hypertension not uncommon complication. Case discussed with Dr. Jones, will follow. Admission and Anticipated Discharge Date Admission Date: June 01, 2023 Supervising Physician Co-Signing Physician Notes Patient seen and examined both pre and postcardiac catheterization. Underwent coronary angiography demonstrating mild to moderate irregularities left anterior sending and no obstructive disease Discussed results with patient suspect elevated troponin secondary to marked hypertension in association with crest syndrome component of stress mediated cardiomyopathy not completely excluded with noting significant stress recently We will continue current medications metoprolol succinate 12.5 mg twice daily lisinopril 5 mg/day low threshold for adding low-dose calcium channel filipe with history of Raynaud's disease though minimally symptomatic. Plan as outlined above Suspect discharge tomorrow Subjective 72-year-old female with a past medical history of crest syndrome hospitalized with acute worsening hypertension associated with chest tightness and mild breathlessness. EKGs and echo without evidence of myocardial infarction however high-sensitivity troponin are significantly elevated. 06/01: Blood pressures averaging in the 160s to 170s systolic. Lisinopril 2.5 mg daily was started. Heart rates averaging in the 50s and 60s, maintained on metoprolol tartrate 12 and half milligrams twice daily. Due to chest pain and elevated troponins heparin infusion started. Patient maintained on aspirin 81 mg daily. 06/02: Lisinopril increased to 5 mg daily NPO at midnight for possible cath in the am. 06/03: Upon entrance into the room patient resting comfortably in bed. No acute concerns. No return of chest pain. Denies shortness of breath. No palpitations, lightheadedness, or dizziness. No head ache. No orthopnea or PND. No lower extremity edema. Review of Systems Review of Systems: All systems reviewed & are unremarkable except as noted in HPI & below Physical Exam Constitutional: WD/WN, vitals as above no acute distress Eyes: PERRL, conjunctivae normal, anicteric sclerae ENMT: external ear and nose normal, oropharynx normal Neck: normal visual inspection and trachea midline Respiratory: normal respiratory effort, lungs clear to auscultation Cardiovascular: Rate/Rhythm: regular rate and regular rhythm Heart Sounds: normal S1, normal S2 and + murmur (+systolic murmur) Vessels: no JVD Extremities: no edema Gastrointestinal (Abdomen): normal bowel sounds, soft, nontender, no hepatosplenomegaly Psychiatric: A+Ox3, euthymic affect Results & Data Vital Signs (Past 12 Hours) Vital Signs Temp Pulse Pulse Resp BP Pulse Ox O2 Del Method 06/03/23 03:47 36.9 C 57 L 18 135/71 97 Room Air 06/02/23 23:13 59 L 06/02/23 22:35 36.9 C 59 L 18 126/70 99 Room Air Laboratory Results Coagulation 06/02/23 06/02/23 06/02/23 Range/Units 09:28 11:11 15:07 APTT 77.4 H* 72.3 H* 63.4 H* (21.0-31.0) Seconds 06/02/23 06/03/23 Range/Units 22:57 06:25 APTT 64.6 H* 78.1 H* (21.0-31.0) Seconds Comprehensive Metabolic Panel 06/03/23 Range/Units 06:25 Sodium 139 (136-145) mmol/L Potassium 4.2 (3.5-5.1) mmol/L Chloride 108 H (98-107) mmol/L Carbon Dioxide 27 (21-32) mmol/L BUN 26 H (6-23) mg/dl Creatinine 1.16 (0.6-1.2) mg/dl Glucose 95 (70-99(Fasting)) mg/dl Calcium 8.9 (8.6-10.3) mg/dl Intake and Output 06/02/23 06/03/23 06/03/23 22:59 06:59 14:59 Intake Total 840 / 1176.267 260 / 1176.267 Balance 840 / 1176.267 260 / 1176.267 Intake: IV 260 / 336.267 Heparin Sodium/Dextrose 25,000 260 / 336.267 units In 500 ml @ 750 UNITS/HR 15 mls/hr IV .Q24H [facility] Rx#: [id number] Oral 840 / 840 Other: Other Intake Source NPO # Unmeasured Voids 1 2 Weight 51.5 kg Weight Measurement Method Standing Scale
[2023-06-03 07:46] LABS: Partial Thromboplastin Time 78.1 Seconds (21.0-31.0)
[2023-06-03] MEDS: METOPROLOL SUCC 25MG EXT REL TAB PO SCH ×2 (07:54→20:38)
[2023-06-03] MEDS: PANTOprazole 40 MG TAB PO SCH ×2 (07:55→20:38)
[2023-06-03] MEDS: lisinopril 5 MG TAB PO SCH (07:55)
[2023-06-03] MEDS: ASPIRIN 81 MG ECTAB PO SCH (07:56)
[2023-06-03] MEDS: MULTIVITAMIN TAB PO SCH (07:57)
[2023-06-03] MEDS ORDERED: HEPARIN (PORCINE) 1000 UNIT/ML 10 ML (CATH LAB USE ONLY) ONE (13:56)
[2023-06-03] MEDS ORDERED: niCARdipine HCL INJ 2.5 MG/ML 10 ML AMP ONE (13:57)
[2023-06-03] MEDS ORDERED: fentaNYL citrate PF 100 MCG/2 ML VIAL ONE (13:57)
[2023-06-03] MEDS ORDERED: MIDAZOLAM HCL 1 MG/ML 2ML VIAL ONE (13:57)
[2023-06-03] MEDS ORDERED: NITROGLYCERIN/D5W 100MCG/ML 20ML SYR ONE (13:57)
--- NOTE | 2023-06-03 14:41 | Pre Anesthesia Assessment ---
Date of Service June 03, 2023 Pre Sedation Assessment Vital Signs Temp Pulse Pulse Resp BP Pulse Ox O2 Del Method 06/03/23 13:35 74 14 180/92 H 99 Room Air 06/03/23 12:14 36.6 C 60 18 154/90 H 99 Room Air 06/03/23 07:55 37.0 C 59 L 18 150/74 H 96 Room Air 06/03/23 03:47 36.9 C 57 L 18 135/71 97 Room Air 06/02/23 23:13 59 L 06/02/23 22:35 36.9 C 59 L 18 126/70 99 Room Air 06/02/23 18:58 36.6 C 60 20 149/69 H 98 Room Air 06/02/23 15:48 36.8 C 61 17 151/80 H 99 Room Air Cardiovascular RRR, no murmur, no edema no JVD no edema Respiratory normal respiratory effort, lungs clear to auscultation Pre-Sedation Airway Assessment Smoking Status: Never smoker Hx Sleep Apnea: No Short, Thick Neck: No Thyromental Distance: > or= 3.5 Finger Breadths Oral Cavity: + WNL Mallampati Class: III ASA: ASA2 NPO Status Date of Last Intake of Fluids: 06/02/23 Time of Last Intake of Fluids: 17:00 Date of Last Intake of Solid Food: 06/02/23 Time of Last Intake of Solid Foods: 16:00 Notes The planned sedation has been discussed with the patient. Informed Consent was obtained. I have identified the patient, determined the appropriateness of sedation and have assessed the patient immediately prior to the procedure. All medicine(s) and interventions are by my order.
--- NOTE | 2023-06-03 14:48 | Cardiac Catheterization ---
Cardiac Cath Procedure Brief Procedure Date June 03, 2023 Pre-Procedure Diagnosis Pre-Procedure Diagnosis: Non STEMI and Angina AUC Score AUC Score: 7 Post-Procedure Diagnosis Post-Procedure Diagnosis: Mild CAD Procedure(s) Performed Procedure(s) Performed: Coronary Angiography Brass Pourer Jay Jones MD Orthopedic Surgeon(s) Ana Lilia Estimated Blood Loss Estimated Blood Loss: <15cc Medication(s) Medication(s): Fentanyl (12.5 mcg IV), Heparin (2000 units IV), Lidocaine 1% (Local infiltration access site), Nicardipine (300 mcg intra-arterial after arterial sheath insertion and to 250mcg prior to removal), Nitroglycerin (200 mcg intra-arterial after sheath insertion) and Versed (1 mg IV) Preliminary Findings Impression: Large-caliber coronaries, right dominant Mild luminal irregularities less than 30% mid left anterior descending without obstruction Recommendations Recommendations: Medical Therapy and/or Counseling Specimens Specimens: None Fluids (cc crystalloids) Fluids (cc crystalloids): 70 Procedural Complication(s) None Disposition PCU
--- NOTE | 2023-06-03 14:52 | Hospitalist Progress Note ---
Date of Service June 03, 2023 Assessment & Plan (1) Hypertensive urgency: Plan 72-year-old lady with PMH of PSVT, HLD, hypothyroidism, CKD [baseline creatinine 1.3], GERD, crest syndrome came in with complaint of elevated blood pressure associated with intermittent frontal headache symptoms and posterior neck pain and some chest heaviness. She is being managed for the following: Hypertensive urgency Patient noted to have high blood pressure in the outpatient settings lately. And instructed to maintain a log of blood pressure measurement. Patient making record of her blood pressure as an outpatient, fairly elevated. Outpatient echo from 11/18/2021 with EF of 60 to 64%, mild concentric LVH. Patient started on aspirin, metoprolol, lisinopril Blood pressure getting better, continue to monitor in telemetry NSTEMI pt came in w/ c/o chest heaviness Troponin elevated at 33 at presentation, trended up to 625. Admitting EKG with nonspecific ST and T abnormality. Echo with EF of 60 to 65%, mild concentric LVH. Left ventricular size and wall motion and systolic function normal. Moderate to severe MR. Patient was started on heparin drip. She underwent cardiac catheterization which showed large caliber coronaries, right dominant with mild luminal irregularities less than 30% mid LAD without obstruction. Continue on metoprolol, Lipitor and aspirin. Also on a statin. Other chronic medical conditions: Continue with/resume home meds as and when able. PSVT, no recent episodes. hyperlipidemia, LDL 63, on statin Rx hypothyroidism, TSH slightly elevated. Repeat TFT in 6 weeks. CRI, creatinine at baseline GERD, stable on PPI hx CREST syndrome Hyperglycemia rule out DM, prediabetes, A1c 5.7, repeat A1c in 3 months. Lifestyle modification encouraged. DVT prophylaxis: on heparin gtt. Full code Time spent evaluating patient, direct bedside care, chart review, placing orders, interpretation of diagnostic studies, discussion with consultants, patient, and family members, as well as other required patient management activities is 60 minutes Please note the above document was generated using voice recognition software. It may contain grammatical, syntax or spelling errors. Any formal questions or concerns about the content, text or information contained within the body of this dictation should be directly addressed to the provider for clarification Admission and Anticipated Discharge Date Admission Date: June 01, 2023 Subjective Patient seen and examined at bedside. She is comfortably sitting up on the bed; not in distress. Denies chest pain. No overnight events Review of Systems Review of Systems: All systems reviewed & are unremarkable except as noted in Subjective Physical Exam Physical Exam: GENERAL: Alert and oriented x3. NAD, on RA. HEENT: No pallor, no icterus. Pupils equal, round and reactive to light. Oral mucosa moist. NECK: No JVD, no neck masses. HEART: S1 and S2 heard. Regular rate and rhythm. No murmur, no gallop. RESPIRATORY SYSTEM: Normal AP diameter. No accessory muscle use. No wheezing, no crackles. ABDOMEN: Soft, bowel sounds present, nontender, no distention. CENTRAL NERVOUS SYSTEM: No facial droop. Speech is clear. Obeys simple commands. Moves extremities. EXTREMITIES: No edema, no erythema seen. Results & Data Results & Data Vital Signs (Past 12 Hours) Vital Signs Temp Pulse Pulse Resp BP BP Pulse Ox 06/03/23 14:40 73 18 164/80 H 98 06/03/23 13:35 74 14 180/92 H 99 06/03/23 12:14 36.6 C 60 18 154/90 H 99 06/03/23 07:55 37.0 C 59 L 18 150/74 H 96 06/03/23 03:47 36.9 C 57 L 18 135/71 97 O2 Del Method 06/03/23 14:40 Room Air 06/03/23 13:35 Room Air 06/03/23 12:14 Room Air 06/03/23 07:55 Room Air 06/03/23 03:47 Room Air Laboratory Results Laboratory Results WBC 5.19 K/ul (4.8-10.8) 06/01/23 05:39 RBC 4.09 M/uL (4.20-5.40) L 06/01/23 05:39 Hgb 12.9 g/dl (12.0-16.0) 06/01/23 05:39 Hct 38.5 % (37.0-47.0) 06/01/23 05:39 MCV 94.1 fL (80.0-100.0) 06/01/23 05:39 MCH 31.5 pg (25.0-34.0) 06/01/23 05:39 MCHC 33.5 g/dL (32.0-36.0) 06/01/23 05:39 RDW Std Deviation 43.4 fL (36.4-46.3) 06/01/23 05:39 RDW Coeff of Toni 12.5 % (11.5-14.5) 06/01/23 05:39 Plt Count 155 K/uL (130-400) 06/01/23 05:39 MPV 9.1 fL (9.4-12.4) L 06/01/23 05:39 Immature Gran % (Auto) 0.2 % 06/01/23 05:39 Neut % (Auto) 64.9 % 06/01/23 05:39 Lymph % (Auto) 23.9 % 06/01/23 05:39 [place] % (Auto) 9.8 % 06/01/23 05:39 Eos % (Auto) 0.8 % 06/01/23 05:39 Baso % (Auto) 0.4 % 06/01/23 05:39 Neut # (Auto) 3.37 K/uL (1.40-6.50) 06/01/23 05:39 Lymph # (Auto) 1.24 K/uL (1.20-3.40) 06/01/23 05:39 [place] # (Auto) 0.51 K/uL (0.11-0.59) 06/01/23 05:39 Eos # (Auto) 0.04 K/uL (0.00-0.50) 06/01/23 05:39 Baso # (Auto) 0.02 K/uL (0.00-0.20) 06/01/23 05:39 Immature Gran # (Auto) 0.01 K/uL (0.01-0.20) 06/01/23 05:39 APTT 78.1 Seconds (21.0-31.0) H* 06/03/23 06:25 PTT Ratio 2.8 06/03/23 06:25 Sodium 139 mmol/L (136-145) 06/03/23 06:25 Potassium 4.2 mmol/L (3.5-5.1) 06/03/23 06:25 Chloride 108 mmol/L (98-107) H 06/03/23 06:25 Carbon Dioxide 27 mmol/L (21-32) 06/03/23 06:25 Anion Gap 4 (3-11) 06/03/23 06:25 BUN 26 mg/dl (6-23) H 06/03/23 06:25 Creatinine 1.16 mg/dl (0.6-1.2) 06/03/23 06:25 Est Cr Clr Drug Dosing 35.1 ml/min 06/03/23 06:25 Est GFR ( Amer) 54.1 ml/min 06/03/23 06:25 Est GFR (Non-Af Amer) 46.7 ml/min 06/03/23 06:25 BUN/Creatinine Ratio 22.4 (10-20) H 06/03/23 06:25 Glucose 95 mg/dl (70-99(Fasting)) 06/03/23 06:25 Estimat Average Glucose 117 mg/dl 05/31/23 20:38 Hemoglobin A1c 5.7 % (4.5-5.6) H 05/31/23 20:38 Calcium 8.9 mg/dl (8.6-10.3) 06/03/23 06:25 Phosphorus 3.4 mg/dl (2.5-4.9) 06/03/23 06:25 Magnesium 2.0 mg/dl (1.7-2.4) 06/03/23 06:25 Total Bilirubin 0.8 mg/dl (0.2-1.0) 05/31/23 20:38 AST 26 U/L (13-39) 05/31/23 20:38 ALT 17 U/L (7-52) 05/31/23 20:38 Alkaline Phosphatase 63 U/L (34-104) 05/31/23 20:38 Troponin I High Sens 625.1 pg/ml (0-14) H* 06/01/23 05:39 Total Protein 8.0 gm/dl (6.0-8.3) 05/31/23 20:38 Albumin 4.8 gm/dl (3.4-5.0) 05/31/23 20:38 Globulin 3.2 gm/dl (2.5-4.0) 05/31/23 20:38 Albumin/Globulin Ratio 1.5 (0.9-2) 05/31/23 20:38 Triglycerides 54 mg/dl (0-150) 06/01/23 05:39 Cholesterol 146 mg/dl (0-200) 06/01/23 05:39 LDL Cholesterol, Calc 63 mg/dl 06/01/23 05:39 VLDL Cholesterol, Calc 11 mg/dl (0-30) 06/01/23 05:39 HDL Cholesterol 72 mg/dl 06/01/23 05:39 Cholesterol/HDL Ratio 2.0 (0-5) 06/01/23 05:39 Lipase 49 U/L (11-82) 05/31/23 20:38 TSH 8.279 uIu/ml (0.300-4.500) H 05/31/23 20:38 Free T4 0.86 ng/dl (0.61-1.60) 05/31/23 20:38 Urine Color Yellow 05/31/23 21:19 Urine Appearance Clear (Clear) 05/31/23 21:19 Urine pH 7.5 (4.5-7.5) 05/31/23 21:19 Ur Specific [place] 1.005 (1.000-1.030) 05/31/23 21:19 Urine Protein Negative (Negative) 05/31/23 21:19 Urine Glucose (UA) Negative (Negative) 05/31/23 21:19 Urine Ketones Negative (Negative) 05/31/23 21:19 Urine Blood Negative (Negative) 05/31/23 21:19 Urine Nitrite Negative (Negative) 05/31/23 21:19 Urine Bilirubin Negative (Negative) 05/31/23 21:19 Urine Urobilinogen Negative (Negative) 05/31/23 21:19 Ur Leukocyte Esterase Negative (Negative) 05/31/23 21:19 Impressions Chest X-Ray 05/31/23 20:45 XR chest 1V portable HISTORY: 72 years-old Female Hypertension, CP acute chest pain with hypertension COMPARISON: None TECHNIQUE: AP view of the chest FINDINGS: Cardiomediastinal and hilar silhouettes are within normal limits. No pneumothorax, pleural effusion, airspace consolidation or pulmonary edema. Bones appear grossly intact. Mild dextroscoliosis of the thoracolumbar junction. IMPRESSION: No acute process. ACT 112: Negative or not required by law. The above report was generated using voice recognition software. It may contain grammatical, syntax or spelling errors. Electronically signed by: Duarte Beck M.D. 06/01/2023 7:[address] 05/31/23 23:48 Exam(s): CT HEAD Without Contrast EXAM: CT Head Without Intravenous Contrast CLINICAL HISTORY: Reason for exam: bull, htn crisis. TECHNIQUE: Axial computed tomography images of the head/brain without intravenous contrast. CTDI is 75.29 mGy and DLP is 781.9 mGy-cm. Automated exposure control was utilized for the study. A dose lowering technique was utilized adhering to the principles of ALARA. COMPARISON: No relevant prior studies available. FINDINGS: Brain: Minimal periventricular white matter changes, likely related to microangiopathy. No hemorrhage. Ventricles: Unremarkable. No ventriculomegaly. Bones/joints: Unremarkable. No acute fracture. Soft tissues: Unremarkable. Sinuses: Unremarkable as visualized. No acute sinusitis. Mastoid air cells: Unremarkable as visualized. No mastoid effusion. IMPRESSION: Minimal periventricular white matter changes, likely related to microangiopathy. Electronically signed by: Santy Nguyen M.D. 06/01/23 02:55 AM
[2023-06-03] MEDS: ATORVASTATIN 10 MG TAB PO SCH (20:38)
--- NOTE | 2023-06-03 21:03 | Cardiac Catheterization ---
Cardiac Cath Procedure Full Procedure Date June 03, 2023 Pre-Procedure Diagnosis Pre-Procedure Diagnosis: Non STEMI and Angina AUC Score AUC Score: 7 Post-Procedure Diagnosis Post-Procedure Diagnosis: Mild CAD Procedure(s) Performed Procedure(s) Performed: Coronary Angiography Roofer Jay Jones MD Covered Buckle Assembler(s) Ana Lilia Frye Estimated Blood Loss Estimated Blood Loss: <15cc Medication(s) Medication(s): Fentanyl (12.5 mcg IV), Heparin (2000 units IV), Lidocaine 1% (Local infiltration access site), Nicardipine (300 mcg intra-arterial after arterial sheath insertion and to 250mcg prior to removal), Nitroglycerin (200 mcg intra-arterial after sheath insertion) and Versed (1 mg IV) Summary of Findings Impression: Large-caliber coronaries, right dominant Mild luminal irregularities less than 30% mid left anterior descending without obstruction Procedure: Coronary angiography via right radial access Catheters: Long 6 Vincentian glide radial sheath, 5 Vincentian [place], 5 Vincentian straight pigtail Coronary angiography: Right dominant anatomy Left main: Long and free of disease or calcification Left anterior descending: Type III in distribution, large in caliber very tortuous in its course. It gives rise to a very small first diagonal branch office to the large septal branch then a large second diagonal branch in its midportion. It courses to terminate beyond the apex. Within the left anterior descending there is a eccentric area of moderate irregularity of less than 30% in its midportion. The origin of the second diagonal branch has a 20% ostial taper. Left circumflex: Large caliber nondominant vessel. It gives rise to a large multi branching obtuse marginal opposite an atrial branch at the end of its proximal third. It then continues to give rise to 2 tiny posterior lateral branches along the AV groove. Within the left circumflex there is moderate irregularities in its midportion and in the proximal portion of the obtuse marginal Right coronary artery: Moderately large dominant vessel. Gives rise to a conus branch at its origin, a small right ventricular branch and an acute marginal branch. At the AV groove it gives rise to a small posterior descending artery and accessory branch into posterior ventricular branches. There is minimal luminal regularities in the right coronary distribution Hemodynamics Rest Ao:: 166/81/117 Final Ao: 158/77/94 LV: N/A Recommendations Recommendations: Medical Therapy and/or Counseling Specimens Specimens: None Radiation Exposure (mGy) 158 Contrast (mls) 50 Fluids (cc crystalloids) Fluids (cc crystalloids): 70 Anesthesia Start time: 1405, stop time: 1429 Procedural Complication(s) None Disposition PCU I attest to the content of the Intraoperative Record and any orders documented therein. Any exceptions are noted below. ACC Data: Brazing Machine Feeder Cardiac Status Clinical evaluation leading to the procedure 72-year-old female with crest syndrome presented with marked elevation in blood pressures and chest pressure pain. Troponins elevated to a peak of 600 Referred for diagnostic coronary angiography CAD Presenation: Non STEMI Cardiogenic Shock within 24 Hours: No Cardiac Arrest within 24 Hours: No Imaging Studies Past 6 Months: Yes Stress Studies Past 6 Months: No Standard Exercise Test: No Stress Echocardiogram: No Stress Testing w/SPECT MPI: No Cardiac CTA: No Coronary Anatomy Dominant: Right Left Main (% Stenosis): Normal LAD (% Stenosis): Mid (20) D1 (% Stenosis): Normal D2 (% Stenosis): Ostial (20) Circumflex (% Stenosis): Proximal (Mild irregularities) OM1 (% Stenosis): Proximal (Mild irregularity) L PL1 (% Stenosis): Normal L PL2 (% Stenosis): Normal RCA (% Stenosis): Normal R PDA (% Stenosis): Normal R PL1 (% Stenosis): Normal R PL2 (% Stenosis): Normal Diagnostic Physicians Name: Jay Jones MD Closure Device Recommendations: Medical Therapy and/or Counseling
--- NOTE | 2023-06-03 21:04 | Post Anesthesia Assessment ---
Date of Service June 03, 2023 Post Sedation Assessment Vital Signs Temp Pulse Pulse Resp BP BP BP 06/03/23 19:00 36.4 C L 56 L 16 115/63 06/03/23 19:14 36.6 C 64 16 125/75 06/03/23 17:46 36.7 C 64 14 156/74 H 06/03/23 16:57 35.5 C L 76 14 165/83 H 06/03/23 16:41 36.6 C 58 L 14 177/72 H 06/03/23 15:57 36.3 C L 51 L 14 164/82 H 06/03/23 15:27 36.4 C L 59 L 16 137/82 06/03/23 14:42 36.7 C 57 L 20 137/75 06/03/23 14:40 73 18 164/80 H 06/03/23 13:35 74 14 180/92 H 06/03/23 12:14 36.6 C 60 18 154/90 H 06/03/23 07:55 37.0 C 59 L 18 150/74 H 06/03/23 03:47 36.9 C 57 L 18 135/71 06/02/23 23:13 59 L 06/02/23 22:35 36.9 C 59 L 18 126/70 Pulse Ox O2 Del Method 06/03/23 19:00 98 Room Air 06/03/23 19:14 97 Room Air 06/03/23 17:46 98 Room Air 06/03/23 16:57 99 Room Air 06/03/23 16:41 99 Room Air 06/03/23 15:57 100 Room Air 06/03/23 15:27 98 Room Air 06/03/23 14:42 97 Room Air 06/03/23 14:40 98 Room Air 06/03/23 13:35 99 Room Air 06/03/23 12:14 99 Room Air 06/03/23 07:55 96 Room Air 06/03/23 03:47 97 Room Air 06/02/23 23:13 06/02/23 22:35 99 Room Air Recovery Score Activity: Moves 4 extremities Respiration: Deep Breath/Cough Circulation: +/-20% PreAnes Value Consciousness: Fully Awake Oxygen Saturation: > 92% On Room Air Post Anesthesia Score: 10 Discharge Sedation Level of Care: Phase I Post Sedation Plan On clinical assessment, the patient appears to have tolerated the sedation without complications. Patient is recovering as anticipated. Patient will continue to be monitored by nursing and may be discharged when sedation discharge criteria are met per below protocol. Upon Completions of procedure up to 15 minutes continue every 5 minute vital signs and the P.A.R. score; then discharge to a Phase I or Fast Track to Phase II per the following guidelines: * Discharge Patient to appropriate Phase II area if PAR is 8 or greater or return to pre- procedure baseline. The post - procedure orders will be as directed. * If PAR score is less than 8 or not return to pre-procedure baseline then patient will follow Phase I monitoring till PAR is reached for Phase II. The Phase I may be done in procedure room or may call to secure a Phase I area. * If naloxone or flumazenil are used for reversal, hold in Phase I for continued monitoring from when last reversal dose was given for a minimum of 60 minutes or longer pending the nurse and/or physician discretion of patient condition before discharge to Phase II. Please call the Sedation Physician to re-evaluate and complete post-note for discharge to Phase II area. Do NOT discharge from procedure sedation or Phase 1 until post- sedation evaluation note is complete by procedure /sedation MD Sedation Discharge Instructions to be given to the patient at discharge to home.
[2023-06-04] MEDS: LEVOTHYROXINE SODIUM 50 MCG TABLET PO SCH (06:20)
[2023-06-04 07:02] LABS: Basophils # (auto) 0.03 K/uL (0.00-0.20); Basophils % (auto) 0.5 %; Eosinophils # (auto) 0.15 K/uL (0.00-0.50); Eosinophils % (auto) 2.6 %; Hematocrit (blood only) 40.3 % (37.0-47.0); Hemoglobin 13.7 g/dl (12.0-16.0); Immature Granulocytes # (auto) 0.01 K/uL (0.01-0.20); Immature Granulocytes % (auto) 0.2 %; Lymphocytes % (auto) 29.7 %; Mean Corpuscular Hemoglobin 31.5 pg (25.0-34.0); Mean Corpuscular Volume 92.6 fL (80.0-100.0); Mean Platelet Volume 9.2 fL (9.4-12.4); Monocytes # (auto) 0.59 K/uL (0.11-0.59); Monocytes % (auto) 10.3 %; Neutrophils # (auto) 3.25 K/uL (1.40-6.50); Neutrophils % (auto) 56.7 %; Platelet Count 146 K/uL (130-400); RDW Coefficient of Variation 12.6 % (11.5-14.5); RDW Standard Deviation 43.2 fL (36.4-46.3); Red Blood Count 4.35 M/uL (4.20-5.40); White Blood Count 5.73 K/ul (4.8-10.8)
[2023-06-04 07:21] LABS: BUN Creatinine Ratio 23.1 (10-20); Calcium 9.5 mg/dl (8.6-10.3); Creatinine Clr Calc Pharmacy 37.6 ml/min; Est GFR (Non-African American) 50.9 ml/min; Potassium 4.5 mmol/L (3.5-5.1)
--- NOTE | 2023-06-04 07:28 | Cardiology Progress Note ---
Date of Service June 04, 2023 Assessment & Plan (1) Hypertensive urgency: (2) CREST syndrome: (3) Elevated troponin: (4) Mitral regurgitation: (5) MVP (mitral valve prolapse): Plan Impression: 72-year-old female with a past medical history of crest syndrome hospitalized with acute worsening hypertension associated with chest tightness and mild breathlessness. EKGs and echo without evidence of myocardial infarction however high-sensitivity troponin are significantly elevated, peaked at 690. Cardiac catheterization demonstrating mild to moderate irregularities of the LAD without obstructive disease-- suspect elevated troponin secondary to marked hypertension in association with crest syndrome component of stress mediated cardiomyopathy not completely excluded with noting significant stress recently. Plan: Hypertensive Urgency: BP with significant improvement. Continue current medication doses of metoprolol succinate 12.5 mg twice daily, lisinopril 5 mg daily. Will add low-dose calcium channel filipe, Norvasc 2.5 mg nightly, given hx of Raynaud's and hypertension. Moderate to severe mitral insufficiency noted on echo without evidence of heart failure; possibly due to significant hypertension--anticipate outpatient echocardiogram for surveillance in approximately 3 months Continue aspirin 81 mg daily and statin therapy for cardiovascular risk reduction. LDL currently controlled at 63. CREST syndrome: Acute renal insufficiency and marked hypertension not uncommon complication. Case discussed with Dr. Jones-- no further recommendations from a cardiology standpoint. Okay for discharge. Continue Metoprolol, lisinopril, and Norvasc as ordered at discharge. I will arrange for outpatient follow up with an echo at that time. Admission and Anticipated Discharge Date Admission Date: June 01, 2023 Supervising Physician Co-Signing Physician Notes Patient seen and examined. Assessment and plan as noted above. Recent rapid onset of hypertension likely mediated by crest syndrome possible stress. Plan will be to use low-dose multiple drug regimen as outlined. Patient agreeable Subjective 72-year-old female with a past medical history of crest syndrome hospitalized with acute worsening hypertension associated with chest tightness and mild breathlessness. EKGs and echo without evidence of myocardial infarction however high-sensitivity troponin are significantly elevated. 06/01: +Lisinopril 2.5 mg daily +Metoprolol tartrate 12.5 milligrams twice daily. Due to chest pain and elevated troponins heparin infusion started. Patient m aintained on aspirin 81 mg daily. 06/02: Lisinopril increased to 5 mg daily Metoprolol tartrate discontinued in favor of metoprolol succinate 12.5 milligrams twice daily 06/03: S/p cardiac cath-- demonstrating mild to moderate irregularities left anterior sending and no obstructive disease Lisinopril and metoprolol continued 06/04: Blood pressures and heart rates have been controlled over the last 24 hours. Telemetry: Upon entrance into the room patient resting comfortably in bed. No acute concerns. No CP, VARGAS, lightheadedness. No orthopnea or PND. No lower extremity edema. Eager for discharge. Cath site without evidence of hematoma, no pain. Review of Systems Review of Systems: All systems reviewed & are unremarkable except as noted in HPI & below Physical Exam Constitutional: WD/WN, vitals as above no acute distress Eyes: PERRL, conjunctivae normal, anicteric sclerae ENMT: external ear and nose normal, oropharynx normal Neck: normal visual inspection and trachea midline Respiratory: normal respiratory effort, lungs clear to auscultation Cardiovascular: Rate/Rhythm: regular rate and regular rhythm Heart Sounds: normal S1, normal S2 and + murmur (+systolic murmur) Vessels: no JVD Extremities: no edema Gastrointestinal (Abdomen): normal bowel sounds, soft, nontender, no hepatosplenomegaly Psychiatric: A+Ox3, euthymic affect Results & Data Vital Signs (Past 12 Hours) Vital Signs Temp Pulse Pulse Resp BP Pulse Ox O2 Del Method 06/04/23 03:00 36.6 C 50 L 14 112/61 98 Room Air 06/03/23 23:00 36.4 C L 59 L 16 117/61 98 Room Air 06/03/23 22:57 59 L Laboratory Results CBC 06/04/23 Range/Units 06:38 WBC 5.73 (4.8-10.8) K/ul RBC 4.35 (4.20-5.40) M/uL Hgb 13.7 (12.0-16.0) g/dl Hct 40.3 (37.0-47.0) % Plt Count 146 (130-400) K/uL Neut # (Auto) 3.25 (1.40-6.50) K/uL Lymph # (Auto) 1.70 (1.20-3.40) K/uL [place] # (Auto) 0.59 (0.11-0.59) K/uL Eos # (Auto) 0.15 (0.00-0.50) K/uL Baso # (Auto) 0.03 (0.00-0.20) K/uL Comprehensive Metabolic Panel 06/04/23 Range/Units 06:38 Sodium 139 (136-145) mmol/L Potassium 4.5 (3.5-5.1) mmol/L Chloride 109 H (98-107) mmol/L Carbon Dioxide 24 (21-32) mmol/L BUN 25 H (6-23) mg/dl Creatinine 1.08 (0.6-1.2) mg/dl Glucose 87 (70-99(Fasting)) mg/dl Calcium 9.5 (8.6-10.3) mg/dl Intake and Output 06/03/23 06/04/23 06/04/23 22:59 06:59 14:59 Intake Total 1620 / 1860 240 / 1860 Balance 1620 / 1860 240 / 1860 Intake: IV 1500 / 1500 Heparin Sodium/Dextrose 25,000 500 / 500 units In 500 ml @ 750 UNITS/HR 15 mls/hr IV .Q24H GENNY Rx#: [id number] Sodium Chloride 0.9% 1,000 ml @ 1000 / 1000 100 mls/hr IV .Q10H GENNY Rx#: [id number] Oral 120 / 360 240 / 360 Other: # Unmeasured Voids 1 2 Weight 51.3 kg Weight Measurement Method Built in [facility]
[2023-06-04] MEDS: lisinopril 5 MG TAB PO SCH (07:56)
[2023-06-04] MEDS: MULTIVITAMIN TAB PO SCH (07:56)
[2023-06-04] MEDS: METOPROLOL SUCC 25MG EXT REL TAB PO SCH (07:56)
[2023-06-04] MEDS: ASPIRIN 81 MG ECTAB PO SCH (07:56)
[2023-06-04] MEDS: PANTOprazole 40 MG TAB PO SCH (07:56)
--- NOTE | 2023-06-04 10:41 | Discharge Summary ---
Date of Service June 04, 2023 Admission HPI Per Admitting Provider History obtained from patient and records. Medical history significant for PSVT, hyperlipidemia, hypothyroidism, CRI (baseline creatinine 1.3), GERD, CREST syndrome. Patient seen at [facility] [place] [facility] [place] last month for CKD follow-up. SBP noted to be 150s. Blood pressure also noted to be elevated during dentist appointment few weeks back. Patient instructed to record her blood pressure at home by nephrology provider. Patient started recording home blood pressure readings since last week. SBP 140s to 160s. Intermittent frontal headache symptoms and posterior neck pain. Admits to being an anxious person. Some worries about family members undergoing elective surgery this month. SBP noted to be 180 in the 200s at home tonight. Transient headache symptoms. Patient noted substernal tightness without shortness of breath or radiation. No unusual cough symptoms. Patient consulted ER for evaluation. SBP 190s upon arrival at the ER. IV labetalol administered at the ER. SBP currently 150s. Patient currently comfortable. Aspirin administered at the ER. 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 Admission Exam Per Admitting Provider GENERAL: Comfortable, pleasant, slightly anxious, looks younger than stated age, no respiratory distress SKIN: Normal color, warm HEENT: Bespectacled, [place] palpebral conjunctivae, no ptosis, moist buccal mucosa NECK : Supple, no tenderness CHEST : CTA, no tenderness HEART : RRR, no obvious murmurs ABDOMEN: no distention, nontender EXTREMITIES : No LE swelling/tenderness, no other conspicuous deformities noted NEUROLOGIC : Coherent, no facial asymmetry, no other gross focality Principal Diagnosis Hypertensive urgency NSTEMI Discharge Exam GENERAL: Alert and oriented x3. NAD, on RA. HEENT: No pallor, no icterus. Pupils equal, round and reactive to light. Oral mucosa moist. NECK: No JVD, no neck masses. HEART: S1 and S2 heard. Regular rate and rhythm. No murmur, no gallop. RESPIRATORY SYSTEM: Normal AP diameter. No accessory muscle use. No wheezing, no crackles. ABDOMEN: Soft, bowel sounds present, nontender, no distention. CENTRAL NERVOUS SYSTEM: No facial droop. Speech is clear. Obeys simple commands. Moves extremities. EXTREMITIES: No edema, no erythema seen. Discharge Data Allergies Allergy/AdvReac Type Severity Reaction Status Date / Time No Known Drug Allergies Allergy Unknown Verified 05/31/23 20:58 Consultations 05/31/23 22:11 ED Decision to Admit Stat 06/01/23 04:18 Consult Cardiology Routine Procedures Performed Operation Date: 06/03/23 13:00 Actual Procedures s Cineradiography w/Routine Exam(Right) - Jay Jones MD p Cath, Coronaries ONLY (no LV) - Jay Jones MD Ordered Studies 05/31/23 23:48 CT head/brain wo con Stat 06/03/23 06:57 CL Cath Imgs for PACS use only Stat Hospital Course (1) Hypertensive urgency: Plan 72-year-old lady with PMH of PSVT, HLD, hypothyroidism, CKD [baseline creatinine 1.3], GERD, crest syndrome came in with complaint of elevated blood pressure associated with intermittent frontal headache symptoms and posterior neck pain and some chest heaviness. She was managed for following condition during the hospitalization: Hypertensive urgency Patient noted to have high blood pressure in the outpatient settings lately. And instructed to maintain a log of blood pressure measurement. Patient making record of her blood pressure as an outpatient, fairly elevated. Outpatient echo from 11/18/2021 with EF of 60 to 64%, mild concentric LVH. During the hospitalization, patient was started on metoprolol 12.5 mg, lisinopril 5 mg and amlodipine 2.5 mg with improvement in the blood pressure. NSTEMI pt came in w/ c/o chest heaviness Troponin elevated at 33 at presentation, trended up to 625. Admitting EKG with nonspecific ST and T abnormality. Echo with EF of 60 to 65%, mild concentric LVH. Left ventricular size and wall motion and systolic function normal. Moderate to severe MR. During the hospitalization, patient was started on heparin drip. She underwent cardiac catheterization which showed large caliber coronaries, right dominant with mild luminal irregularities less than 30% mid LAD without obstruction. Continue on metoprolol, Lipitor and aspirin. Also on a statin. Patient discharged home with instruction to follow-up with PCP. Patient to follow-up with cardiology for echocardiogram to monitor severe MR Please note the above document was generated using voice recognition software. It may contain grammatical, syntax or spelling errors. Any formal questions or concerns about the content, text or information contained within the body of this dictation should be directly addressed to the provider for clarification Total Time Total Time Spent Total Time Spent (In Minutes): 45 Total Time Includes: Examination of the Patient, Discharge Planning, Medication Reconciliation, Communication With Other Providers and Other Discharge Plan Discharge Items Patient Disposition: Home - Self-Care Reason For Visit: HTN CRISIS Discharge Diagnosis: Hypertensive crisis NSTEMI Activity: Resume your previous activity Non-emergency contact: Primary Care Provider Call non-emergency contact if: you have any medication questions Follow-up/Referrals: Jay Jones MD [Physician] - (Date & Time 07/15/2023 11:00 AM Provider Jay Jones MD Department Cardiology, [facility] ) Jah Manriquez DO [Primary Care Provider] - (Date & Time 06/09/2023 11:00 AM Provider Jah Manriquez DO Department [facility] ) Diet: Regular Addtl Attending Provider Instructions: You were admitted to the hospital due to high blood pressure. You were found to have elevated troponin level for which you underwent cardiac catheterization on June 03. The float phlebotomist recommended following medications at discharge: 1) aspirin 81 mg once a day, 2) lisinopril 5 mg once a day 3) amlodipine 2.5 mg at night 4) metoprolol 12. 5 mg twice a day. Please continue to take your other medication as prescribed before. Cardiology will make an appointment for you to do echocardiogram in the next few weeks. An appointment with your primary care doctor will be made as well for next week. Pending Studies at Discharge: No Stand-Alone Forms: [facility] [employer], Smoking Cessation Medications and DC Order Prescriptions: New amlodipine [Norvasc] 5 mg Tablet 2.5 mg PO HS Qty: 30 0RF aspirin 81 mg Tablet,Delayed Release (Dr/Ec) 81 mg PO QAM Qty: 30 0RF lisinopril [Zestril] 5 mg Tablet 5 mg PO QAM Qty: 30 0RF metoprolol succinate 25 mg Tablet Extended Release 24 Hr 12.5 mg PO BID Qty: 30 0RF Continued pantoprazole 40 mg tablet,delayed release (DR/EC) 40 mg PO BID multivitamin [Daily Multi-Vitamin] tablet 1 tab PO DAILY atorvastatin 10 mg tablet 10 mg PO HS levothyroxine 50 mcg tablet 50 mcg PO DAILYBB Discharge Orders: Discharge Order (Routine); Ordered 06/04/23 Ordered By: Antolin Whitmore Admission Data Admit Date/Time: 06/01/23 03:17 Attending Provider: Antolin Whitmore Admit Provider: Tyrone Davial Primary Care Provider: Jah Manriquez Other Providers: Tyrone Davila ; Bela So ; Manfred Elizabeth ; Jay Jones ; Carlos A Jeffers ; Dikr Rosas ; Mark Saleem ; Lacey Cody ; Jadyn Tucker ; Bela John ; Yaya Thompson ; Viet Rea ; Arabella Cooney ; Vitor Licea ; Ivan Erickson ; Nicole Davis
[2023-06-04] MEDS ORDERED: amLODIPine BESYLATE 5 MG TAB PO SCH (21:00)
== END 2023-06-04 13:50 | disposition home or self-care (01) | DRG 281 ==
LOC: ED 20:19 → INTOOBSV 06-01 03:17 → EDINP 06-01 03:17 → SUATTDRO 06-01 03:17 → 2S 06-01 04:17
PROC: CLB.CCO (2023-06-03 13:00)

== ENCOUNTER 2024-11-05 17:32 | Inpatient (IN) ==
--- OUTSIDE RECORDS SUMMARY | 2024-11-05 17:36 | External Medical Summary | Summary of Care ---
Author Name Unknown Organization [facility] Address [address] [place] [address] Phone [phone] Care Team Providers Care Appeals Assistant Name Role Phone Jah Manriquez DO Primary Care Provider [phone] Reason for Visit * Reason Onset Date Comments Test Results 09/27/2024 Encounter Details Date Type Department Care Team (Late st Contact Info) Description 09/27/2024 Telephone [facility] [address] [place] [address] Bernardo Morris MD [address] [place] [address] Test Results Allergies No known active allergiesdocumented as of this encounter (statuses as of 09/27/2024) Medications Mometasone Furoate 50 MCG/ACT nasal sprayIndications:C hronic rhinitis PLACE 1 SPRAY INTO EACH NOSTRIL DAILY. 17 g 02/11/20 19 Active metroNIDAZOLE 0.75 % External Cream (MetroCream)Indica tions:Rosacea Apply to face twice daily 45 g 06/23/20 23 Active Atorvastatin Calcium 10 MG Oral Tablet (Lipitor) Take 1 Tablet by mouth in the morning. 90 Tablet 3 12/24/19 24 Active Additional Information Patient taking differently:10 mg OralDAILY NOON, Reported on 08/25/2024 Doxycycline Hyclate 50 MG Oral Capsule (Vibramycin)Indica tions:Rosacea Take one tablet by mouth once daily 90 Capsule 1 12/24/19 24 Active Additional Information Patient taking differently: 50 mg Oral PRN, Take one tablet by mouth once daily, Reported on 07/11/2024 Metoprolol Succinate ER 25 MG Oral Tablet Extended Release 24 Hour (toPROL XL) TAKE 1/2 TABLET BY MOUTH IN THE MORNING AND 1/2 TABLET DAILY BEFORE BEDTIME 90 Tablet 3 12/24/19 24 Active Pantoprazole Sodium 40 MG Oral Tablet Delayed Release (Protonix) Take 1 Tablet by mouth in the morning and 1 Tablet before bedtime. 180 Tablet 3 12/24/19 24 Active Additional Information Patient taking differently:40 mg OralDAILY NOON, Reported on 08/25/2024 Aspirin 81 MG Oral Tablet Delayed Release Take 1 Tablet by mouth in the morning. 90 Tablet 3 12/24/19 24 Active Levothyroxine Sodium 50 MCG Oral Tablet (Levoxyl)Indicatio ns:Acquired hypothyroidism TAKE 1 TABLET DAILYAT LEAST 30 MINUTES PRIOR TO BREAKFAST OR OTHER MEDICATIONS 30 Tablet 3 03/01/20 24 Active Calcium Carbonate Antacid 500 MG Oral Tablet Chewable (Tums) Take 1 Tablet by mouth as needed for Heartburn. Active Multivitamin Women 50+ Oral Tablet Take by mouth daily. Active Lisinopril 20 MG Oral Tablet (Prinivil)Indicati ons:HTN, goal below 140/90 Take 1 Tablet by mouth in the morning. 30 Tablet 5 08/25/19 25 Active documented as of this encounter (statuses as of 09/27/2024) Active Problems Problem Noted Date Diagnosed Date Chronic kidney disease, stage 3b 06/06/2024 Overview: Per CKD protocol HTN, goal below 140/90 04/18/2024 Bilateral impacted cerumen 02/12/2024 Right facial pain 02/12/2024 Senile osteoporosis 11/20/2023 Mitral valve insufficiency 07/14/2023 Raynaud's disease without gangrene 09/03/2021 PSVT (paroxysmal supraventricular tachycardia) 0 09/03/2021 Pure hypercholesterolemia 05/08/2020 Gastroesophageal reflux disease without esophagi tis 09/27/2019 Vestibular schwannoma 10/05/2014 Scleroderma, 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 Hypothyroidism 11/08/2008 Pulsatile tinnitus 05/01/2005 Overview (11/04/2007): Son Sensorineural hearing loss 05/01/2005 Overview (11/04/2007): Son Rosacea 03/28/2002 Actinic keratosis 03/28/2002 documented as of this encounter (statuses as of 09/27/2024) Resolved Problems Problem Noted Date Diagnosed Date Resolved Date Stage 3a chronic kidney disease 07/02/2020 06/09/2024 Overview: Per CKD protocol Kidney disease, chronic, sta ge III (GFR 30-59 ml/min) 12/01/2017 07/05/2020 Overview: Per CKD protocol #1 Abnormal renal function test 10/01/2017 05/08/2020 Other tenosynovitis of hand and wrist 01/08/2013 09/25/2017 Wrist pain, left 01/08/2013 09/25/2017 Palpitations 08/20/2007 09/25/2017 ADVANCE DIRECTIVE INFORMATION 03/06/2005 06/27/2024 Overview (03/06/2005): No, Advance Directive brochure offered , patient declined. documented as of this encounter (statuses as of 09/27/2024) Immunizations Name Administration Dates Next Due COVID-19 mRNA, LNP-s, No Pre serve, 2-Dose Series (Moderna) 10/24/2020,09/26/2020 Pneumococcal Conjugate Vacc, 13 Valent (Prevnar) 08/09/2019 Pneumococcal Polysaccharide PPV23 (Pneumovax) 08/10/2020,06/05/2010 06/05/2020 Seasonal Influenza Vac., MDV , IM, 0.5 mL (Fluzone) 05/30/2014,06/08/2013,08/04/2012,05/25 Seasonal Influenza, PF, 6 M & above, IM , (FluLaval or Fluzone) 06/01/2017 Seasonal Influenza, Quadriva lent, No Preserve, IM 07/22/2016,07/16/2015 TDAP (age 10 and older)(Boostrix) 2019 TDAP, Age 7 and older, IM (Adacel) 05/09/2009 Varicella Zoster Vaccine (Adult) 04/10/2014 Zoster Vaccine Recombinant (Shingrix) 05/12/2022 ,02/18/2022 documented as of this encounter Social History Tobacco Use Types Packs/Day Years Used Date Smoking Tobacco: Never Smokeless Tobacco: Never Alcohol Use Standard Drinks/Week Comments No 0 (1 standard drink = 0.6 oz pur e alcohol) PHQ-2 Answer Date Recorded PHQ Adult Total Score 0 06/17/2022 Hunger Vital Sign Answer Date Recorded Within the past 12 months, y ou worried that your food would run out before you got the money to buy more. Never true 06/16/20 22 Within the past 12 months, t he food you bought just didn't last and you didn't have money to get more. 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 * Telephone Encounter - Kiesha Sauer RN - 09/27/2024 11:34 AM EST ----- Message from Bernardo Morris MD sent at 09/26/2024 1:32 PM EST ----- Kidney labs stable. Continue same documented in this encounter Plan of Treatment Upcoming Encounters Date Type Department Care Team (Late st Contact Info) Description 11/15/2024 9:20 AM EDT [facility] [place] [address] [place] [address] Jah Manriquez, DO [address] [place] [address] 01/17/2025 11:40 AM EDT Office Visit Rheumatology [facility] [address] [place] [id number] Mario Pñea MD [address] [facility] [place] [address] 01/19/2025 11:30 AM EDT Office Visit Otolaryngology [facility] [address] [facility] [address] Giorgio Choi PA-C [address] [facility] [place] [address] 05/23/2025 10:15 AM EDT Office Visit Dermatology [facility] [address] [place] [address] Garcia Puri MD [address] [place] [address] 05/29/2025 2:40 PM EDT Office Visit Nephrology, [facility] [address] [facility] [place] [address] Bernardo Morris MD [address] [place] [address] Health Maintenance Due Date Last Done Comments Cologuard 1994 Sigmoidoscopy 1994 Adult Wellness Visit 01/16/2017 01/17/2016 Depression Screening 06/17/2023 06/17/2022, 02/18/2017 (Discussed) Fecal Occult Blood Test 06/23/2023 06/23/2022 COVID-19 Vaccine ( season) 2024 10/24/2020, 09/26/2020 Influenza Vaccine (FLU shot) (#1) 2024 06/01/2017, 07/22/2016, 07/16/2015, Additional history exists Mammogram 11/26/2024 11/27/2023, 12/22, 09/21/2020, Additional history exists TSH 01/21/2025 01/22/2024, 05/24, 05/05/2023, Additional history exists GFR 03/23/2025 09/23/2024, 1003/2024, 12/25/2023, Additional history exists Albumin/Creatinine Ratio 05/31/2025 024, 05/05/2023, 02/18/2022, Additional history exists CKD HGB USE SMARTSET 46544 09/23/202509/23, 09/23/2024, 01/22/2024, Additional history exists CKD PHOS USE SMARTSET 62434 09/23/202508/26, 05/31/2024, 12/25/2023, Additional history exists DXA Scan 10/12/2025 10/12/2023, 12/22, 12/25/2015 Lipid Panel 11/04/2028 11/05/2023, 09/24, 08/29/2021, Additional history exists Colonoscopy 03/16/2029 03/16/2024, 02/22, 11/16/2018, Additional history exists Colorectal Cancer Screening 03/16/2029 DTap/Tdap Vaccines (3 - Td or Tdap) 10/24/2029 2019, 05/09/2009 Pneumococcal Vaccine: 50+ Years Completed 08/10/2020, 08/09/2019, 06/05/2010 Zoster Vaccines Completed 05/12/2022, 01/23, 04/10/2014 RETIRED - COLONOSCOPY-EVERY 5 YRS AGES 18-100 Discontinued 03/16/2024, 03/16/2024, 11/16/2018, Additional history exists VITAMIN D LEVEL ONCE IN A LIFETIME-USE SMARTSET# [id number] Completed 09/23/2024, 01/22/2024, 12/18/2023, Additional history exists HPV (Gardasil) Vaccine Aged Out No lo nger eligible based on patient's age to complete this topic Hepatitis B Vaccine Aged Out No longe r eligible based on patient's age to complete this topic MENINGOCOCCAL (MENACTRA/MENVEO) Aged Out No longer eligible based on patient's age to complete this topic documented as of this encounter Medical Devices Not on filedocumented as of this encounter Care Teams Appeals Assistant Relationship Specialty Start Date End Date Jah Manriquez DO [address] [place] [address] PCP - General Family Medicine 10/12/18 documented as of this encounter
--- OUTSIDE RECORDS SUMMARY | 2024-11-05 17:36 | External Medical Summary ---
Author Name Unknown Address Unknown Organization [id number][facility] [place] [address] [place] [address] Laboratory Report Ordering Provider Test Date Status KENNETH SOW 09/23/2024 09:44:02 Final Deficient: <20 ng/mL
Ins ufficient: 20-29 ng/mL
Recommended/Optimum:30-50 ng/mL

Vitamin D intoxication is rare. If suspicious of Vitamin D toxicity, evaluation of serum Calcium and PTH is recommended. Observation Date Value Abnormality Reference (Units ) Status 25-OH Vitamin D total 09/23/2024 09:44:02 29 >19 (ng/mL) Final Performing Location [facility] - [address] [place] [address]
--- OUTSIDE RECORDS SUMMARY | 2024-11-05 17:36 | External Medical Summary ---
Author Name Unknown Address Unknown Organization [id number]:[facility] [place] [address] Laboratory Report Ordering Provider Test Date Status KENNETH SOW 09/23/2024 09:44:02 Final Observation Date Value Abnormality Reference (Units ) Status SYNC LEUKOCYTES IN BLOOD BY AUTOMATED COUNT 09/23/2024 09:44:02 5.78 4.00-10.80 (K/uL) Final Segs 09/23/2024 09:44:02 60.7 40.0-75.0 (%) Final Lymphs % 09/23/2024 09:44:02 28.5 18.0-42.0 (%) Final Monos 09/23/2024 09:44:02 8.7 1.0-11.0 (%) Final Eosinophils 09/23/2024 09:44:02 1.9 0.0-6.0 (%) Final Basos 09/23/2024 09:44:02 0.2 0.0-2.0 (%) Final Absolute Segs 09/23/2024 09:44:02 3.51 1.80-7.70 (K/uL) Final Lymphs, absolute 09/23/2024 09:44:02 1.65 1.00-4.80 (K/ul) Final Monos, Abs 09/23/2024 09:44:02 0.50 0.00-1.10 (K/uL) Final Eos, Abs 09/23/2024 09:44:02 0.11 0.00-0.70 (K/uL) Final Basos, Abs 09/23/2024 09:44:02 0.01 0.00-0.20 (K/uL) Final Performing Location [facility] [place] [address]
--- OUTSIDE RECORDS SUMMARY | 2024-11-05 17:36 | External Medical Summary ---
Author Name Unknown Address Unknown Organization K09[facility] [place] [address] Laboratory Report Ordering Provider Test Date Status KENNETH SOW 09/23/2024 09:44:02 Final Observation Date Value Abnormality Reference (Units ) Status WBC, Total 09/23/2024 09:44:02 5.78 4.00-10.8 0 (K/uL) Final RBC 09/23/2024 09:44:02 4.08 3.85-5.15 (M/uL) Final Hemoglobin 09/23/2024 09:44:02 12.8 12.0-15.3 (g/dL) Final HCT 09/23/2024 09:44:02 41.0 36.0-45.2 (%) Final MCV 09/23/2024 09:44:02 100.5 81.5-97.5 (fL) Final MCH 09/23/2024 09:44:02 31.4 27.0-34.0 (pg) Final MCHC 09/23/2024 09:44:02 31.2 32.0-36.0 (g/dL) Final RDW 09/23/2024 09:44:02 13.1 11.5-15.5 (%) Final Platelets 09/23/2024 09:44:02 159 140-400 (K /uL) Final MPV 09/23/2024 09:44:02 9.3 6.6-11.1 ( fL) Final Performing Location [facility] [place] [address]
--- OUTSIDE RECORDS SUMMARY | 2024-11-05 17:36 | External Medical Summary | Summary of Care ---
Author Name Unknown Organization [facility] Address [address] [facility] [place] [address] Phone [phone] Care Team Providers Care Concrete Pipe Plant Supervisor Name Role Phone Jah Manriquez DO Primary Care Provider [phone] Encounter Details Date Type Department Care Team (Late st Contact Info) Description 08/27/2024 Orders Only PATIENT PORTAL DO NOT DELETE THIS DEPT USED BY [place] GORE [id number] Allergies No known active allergiesdocumented as of this encounter (statuses as of 08/27/2024) Medications Mometasone Furoate 50 MCG/ACT nasal sprayIndications:C [...] as of this encounter (statuses as of 08/27/2024) Active Problems Problem Noted Date Diagnosed Date [...] as of this encounter (statuses as of 08/27/2024) Resolved Problems Problem Noted Date Diagnosed Date [...] as of this encounter (statuses as of 08/27/2024) Immunizations Name Administration Dates Next Due COVID-19 [...] on file documented as of this encounter Plan of Treatment Upcoming Encounters Date Type Department Care Team (Late st Contact Info) Description 08/30/2024 2:00 PM EST Office Visit Otolaryngology [facility] [address] [place] [address] Apurva Davies PA-C [address] [address] 11/15/2024 9:20 AM EDT Office Visit Family Practice [facility] [address] [place] [address] Jah Manriquez, DO [address] [place] [address] 01/17/2025 11:40 AM EDT Office Visit Rheumatology [place] [address] [place] [address] Mairo Peña MD [address] [place], [place] [address] 05/23/2025 10:15 AM EDT Office Visit Dermatology [facility] [address] [place] [address] Garcia Puri MD [address] [facility] [place] [address] Health Maintenance Due Date Last Done Comments Cologuard 1994 Sigmoidoscopy 1994 Adult Wellness Visit 01/16/2017 01/17/2016 Depression Screening 06/17/2023 06/17/2022, 02/18/2017 (Discussed) Fecal Occult Blood Test 06/23/2023 06/23/2022 COVID-19 Vaccine ( season) 2024 10/24/2020, 09/26/2020 Influenza Vaccine (FLU shot) (#1) 2024 06/01/2017, 07/22/2016, 07/16/2015, Additional history exists Mammogram 11/26/2024 11/27/2023, 12/22, 09/21/2020, Additional history exists GFR 11/29/2024 05/31/2024, 050 10/2023, 12/18/2023, Additional history exists CKD HGB USE SMARTSET 99877 01/21/202501/21, 05/05/2023, 03/11/2022, Additional history exists TSH 01/21/2025 01/22/2024, 05/24, 05/05/2023, Additional history exists Albumin/Creatinine Ratio 05/31/2025 024, 05/05/2023, 02/18/2022, Additional history exists CKD PHOS USE SMARTSET 67033 05/31/2025 10/0 03/2024, 12/25/2023, 12/18/2023, Additional history exists DXA Scan 10/12/2025 10/12/2023, 12/22, 12/25/2015 Lipid Panel 11/04/2028 11/05/2023, 09/24, 08/29/2021, Additional history exists Colonoscopy 03/16/2029 03/16/2024, 02/22, 11/16/2018, Additional history exists Colorectal Cancer Screening 03/16/2029 DTap/Tdap Vaccines (3 - Td or Tdap) 10/24/2029 2019, 05/09/2009 Pneumococcal Vaccine: 50+ Years Completed 08/10/2020, 08/09/2019, 06/05/2010 Zoster Vaccines Completed 05/12/2022, 01/23, 04/10/2014 VITAMIN D LEVEL ONCE IN A LIFETIME-USE SMARTSET# [id number] Completed 01/22/2024, 12/18/2023, 11/25/2023, Additional history exists RETIRED - COLONOSCOPY-EVERY 5 YRS AGES 18-100 Discontinued 03/16/2024, 03/16/2024, 11/16/2018, Additional history exists HPV (Gardasil) Vaccine Aged [...] filedocumented as of this encounter Care Teams Con[employer] Pipe Plant Supervisor Relationship Specialty Start Date End Date Jah Manriquez DO [address] [place] [address] PCP - General Family Medicine 10/12/18 documented as of this encounter
--- OUTSIDE RECORDS SUMMARY | 2024-11-05 17:36 | External Medical Summary | Summary of Care ---
Author Name Unknown Organization [facility] Address [address] [place] [address] Phone [phone] Care Team Providers Care Palliative Care Specialist Name Role Phone Jah Manriquez DO Primary Care Provider [phone] Reason for Visit * Reason Comments Outpatient Testing Encounter Details Date Type Department Care Team (Late st Contact Info) Description 09/23/2024 9:30 AM EST Laboratory Laboratory [facility] [address] [place] [id number] [place] [address] [place] [address] Stage 3a chronic kidney disease (HCC) Allergies No known active allergiesdocumented as of this encounter (statuses as of 09/23/2024) Medications Mometasone Furoate 50 MCG/ACT nasal sprayIndications:C [...] as of this encounter (statuses as of 09/23/2024) Active Problems Problem Noted Date Diagnosed Date [...] as of this encounter (statuses as of 09/23/2024) Resolved Problems Problem Noted Date Diagnosed Date [...] as of this encounter (statuses as of 09/23/2024) Immunizations Name Administration Dates Next Due COVID-19 [...] 9:20 AM EDT Office Visit Family Practice [facility] [address] [facility] [place] [address] Jah Manriquez, DO [address] [facility] [place] [address] 01/17/2025 11:40 AM EDT Office Visit Rheumatology [facility] [address] [place] [phone] Mario Peña MD [address] [facility] [place] [address] 01/19/2025 11:30 AM EDT Office Visit Otolaryngology [facility] [address] [place] [address] Giorgio Choi PA-C [address] [place] [address] 05/23/2025 10:15 AM EDT Office Visit Dermatology [facility] [place] [address] [facility] [place] [address] Garcia Puri MD [address] [facility] [place] [address] 05/29/2025 2:40 PM EDT Office Visit Nephrology, [facility] [address] [facility] [place] [address] Bernardo Morris MD [address] [facility] [place] [address] Pending Results Name Type Priority Associated Diagnoses Date /Time PTH Lab Routine Stage 3a chronic kidney disease (HCC) 09/23/2024 9:44 AM EST 25-HYDROXY VITAMIN D Lab Routine Stage 3a chronic kidney disease (HCC) 09/23/2024 9:44 AM EST PROTEIN/ CREATININE RATIO, URINE Lab Routine Stage 3a chronic kidney disease (HCC) 09/23/2024 9:51 AM EST Health Maintenance Due Date Last Done Comments [...] Additional history exists CKD HGB USE SMARTSET 05757 09/23/202509/23, 09/23/2024, 01/22/2024, Additional history exists CKD PHOS USE SMARTSET 02631 09/23/202508/26, 05/31/2024, 12/25/2023, Additional history exists DXA [...] D LEVEL ONCE IN A LIFETIME-USE SMARTSET# [id number] Completed 01/22/2024, 12/18/2023, 11/25/2023, Additional history exists [...] Not on filedocumented as of this encounter Procedures Procedure Name Priority Date/Time Associated Diagnosis Comments URINALYSIS WITH MICROSCOPIC EXAM Routine 09/23/2024 9:51 AM EST Stage 3a chronic kidney disease (HCC) DIFFERENTIAL, AUTOMATED Routine 09/23/2024 9:44 AM EST Stage 3a chronic kidney disease (HCC) RENAL FUNCTION PANEL Routine 09/23/2024 9:44 AM EST Stage 3a chronic kidney disease (HCC) CBC Routine 09/23/2024 9:44 AM EST Stage 3a chronic kidney disease (HCC) CBC Routine 09/23/2024 9:44 AM EST Stage 3a chronic kidney disease (HCC) documented in this encounter Results * (ABNORMAL) URINALYSIS WITH MICROSCOPIC EXAM (09/23/2024 9:51 AM EST) Color, Urine Yellow Light Yellow, Yellow, Dark Yellow 09/23/2024 10:29 AM [facility]02 Clarity, Urine Clear Clear 09/23/2024 10:29 AM [facility]02 Glucose, Urine Negative Negative mg/dL 09/23/2024 10:29 AM [facility]02 Bilirubin, Urine Negative Negative 09/23/2024 10:29 AM [facility]02 Ketone, Urine Trace(A) Negative mg/dL 09/23/2024 10:29 AM [facility]02 Specific [place], Urine 1.015 1.003 - 1.030 09/23/2024 10:29 AM [facility]02 Blood, Urine Negative Negative 09/23/2024 10:29 AM [facility]-02 pH, Urine 5.0 5.0 - 7.5 Units 09/23/2024 10:29 AM [facility]02 Protein, Urine Negative Negative mg/dL 09/23/2024 10:29 AM [facility]02 Urobilinogen, Urine 0.2 0.2, 1.0 mg/dL 09/23/2024 10:29 AM [facility]02 Nitrite, Urine Negative Negative 09/23/2024 10:29 AM [facility]02 Esterase, Urine Negative Negative 09/23/2024 10:29 AM [facility]02 RBC, Urine 0-2 0 - 2 /HPF 09/23/2024 10:29 AM EST [facility]-02 WBC, Urine 0-2 0 - 2 /HPF 09/23/2024 10:29 AM EST [facility]-02 Bacteria, Urine 0-25 0 - 25 /HPF 09/23/2024 10:29 AM EST [facility]-02 Urine Non-blood Collection / Unknown 09/23/2024 9:51 AM EST 09/23/2024 9:51 AM EST us Bernardo Morris MD LAB URINE ORDERABLES Final Res ult [facility] [address]- [address] [place] [address] * DIFFERENTIAL, AUTOMATED (09/23/2024 9:44 AM EST) WBC 5.78 4.00 - 10.80 K/uL 09/23/2024 9:54 AM [facility] Neutrophils % 60.7 40.0 - 75.0 % 09/23/2024 9:54 AM [facility]02 Lymphocytes % 28.5 18.0 - 42.0 % 09/23/2024 9:54 AM [facility]02 Monocytes % 8.7 1.0 - 11.0 % 09/23/2024 9:54 AM [facility]02 Eosinophils % 1.9 0.0 - 6.0 % 09/23/2024 9:54 AM [facility]02 Basophils % 0.2 0.0 - 2.0 % 09/23/2024 9:54 AM [facility]02 Absolute Neutrophils 3.51 1.80 - 7.70 K/uL 09/23/2024 9:54 AM [facility]02 Absolute Lymphocytes 1.65 1.00 - 4.80 K/ul 09/23/2024 9:54 AM [facility] Absolute Monocytes 0.50 0.00 - 1.10 K/uL 09/23/2024 9:54 AM [facility]02 Absolute Eosinophils 0.11 0.00 - 0.70 K/uL 09/23/2024 9:54 AM [facility] 56- Absolute Basophils 0.01 0.00 - 0.20 K/uL 09/23/2024 9:54 AM [facility] 56- Blood Venous blood specimen / Unknown Venipuncture / Unknown 09/23/2024 9:44 AM EST 09/23/2024 9:45 AM EST us Bernardo Morris MD LAB BLOOD ORDERABLES Final Res ult [facility] [address]- [address] [place] [address] * CBC (09/23/2024 9:44 AM EST) WBC 5.78 4.00 - 10.80 K/uL 09/23/2024 9:54 AM [facility] 56- RBC 4.08 3.85 - 5.15 M/uL 09/23/2024 9:54 AM [facility] 56- HGB 12.8 12.0 - 15.3 g/dL 09/23/2024 9:54 AM [facility] 56- HCT 41.0 36.0 - 45.2 % 09/23/2024 9:54 AM [facility] 56- MCV 100.5 81.5 - 97.5 fL 09/23/2024 9:54 AM [facility] 56- MCH 31.4 27.0 - 34.0 pg 09/23/2024 9:54 AM [facility] 56- MCHC 31.2 32.0 - 36.0 g/dL 09/23/2024 9:54 AM [facility] 56- RDW 13.1 11.5 - 15.5 % 09/23/2024 9:54 AM [facility] 56- PLT 159 140 - 400 K/uL 09/23/2024 9:54 AM [facility] 56- MPV 9.3 6.6 - 11.1 fL 09/23/2024 9:54 AM [facility]-02 Blood Venous blood specimen / Unknown Venipuncture / Unknown 09/23/2024 9:44 AM EST 09/23/2024 9:45 AM EST us Bernardo Morris MD LAB BLOOD ORDERABLES Final Res ult [facility] [address]- [address] [place] [address] * (ABNORMAL) RENAL FUNCTION PANEL (09/23/2024 9:44 AM EST) BUN 35(H) 6 - 20 mg/dL 09/23/2024 10:59 AM EST [facility] 56- CREATININE 1.4(H) 0.5 - 1.0 mg/dL 09/23/2024 10:59 AM EST [facility] 56- EGFR 39(L) >=60 mL/min 09/23/2024 10:59 AM EST [facility] 56- Comment:eGFR is calculated b ased on the CKD-EPI 2020 equation. SODIUM 140 135 - 146 mmol/L 09/23/2024 10:59 AM [facility] 56- POTASSIUM 4.8 3.5 - 5.1 mmol/L 09/23/2024 10:59 AM [facility] 56- CHLORIDE 105 98 - 107 mmol/L 09/23/2024 10:59 AM [facility] 56- CO2 24 22 - 32 mmol/L 09/23/2024 10:59 AM [facility] 56- ANION GAP 11 7 - 15 mmol/L 09/23/2024 10:59 AM [facility] 56- GLUCOSE 92 70 - 120 mg/dL 09/23/2024 10:59 AM EST [facility]-02 CALCIUM 9.6 8.4 - 10.2 mg/dL 09/23/2024 10:59 AM [facility]02 Albumin 4.3 3.8 - 5.0 g/dL 09/23/2024 10:59 AM [facility] 56- Phosphorus 3.4 2.5 - 4.8 mg/dL 09/23/2024 10:59 AM [facility] 56- Blood Venous blood specimen / Unknown Venipuncture / Unknown 09/23/2024 9:44 AM EST 09/23/2024 9:45 AM EST us Bernardo Morris MD LAB BLOOD ORDERABLES Final Res ult [facility]-02 [address] [place] [address] documented in this encounter Visit Diagnoses Diagnosis Stage 3a chronic kidney disease (HCC) documented in this encounter Care Teams Palliative Care Specialist Relationship Specialty Start Date End Date [facility] [address] [facility] [address] PCP - General Family Medicine 10/12/18 documented as of this encounter
--- OUTSIDE RECORDS SUMMARY | 2024-11-05 17:36 | External Medical Summary | Summary of Care ---
Author Name Unknown Organization [facility] Address [address] [place] [address] Phone [phone] Care Team Providers Care Laborer Electroplating Name Role Phone Mitra Jah Margarita SMITH Primary Care Provider [phone] Reason for Visit * Reason Comments Rheum Follow Up Recheck Crest Encounter Details Date Type Department Care Team (Late st Contact Info) Description 07/11/2024 4:00 PM EST Office Visit Rheumatology [place] [id number] [place] [address] Mario Peña MD [address] [place] [address] Scleroderma, limited (HCC)*; Senile osteoporosis; Raynaud's disease without gangrene Allergies No known active allergiesdocumented as of this encounter (statuses as of 07/11/2024) Medications Mometasone Furoate 50 MCG/ACT nasal sprayIndications: Chronic rhinitis PLACE 1 SPRAY INTO EACH NOSTRIL DAILY. 17 g 019 Active metroNIDAZOLE 0.75 % External Cream (MetroCream)Indic ations:Rosacea Apply to face twice daily 45 g 023 Active Atorvastatin Calcium 10 MG Oral Tablet (Lipitor) Take 1 Tablet by mouth in the morning. 90 Tablet 3 024 Active Additional Information Patient taking differently:10 mg OralDAILY NOON, Reported on 07/11/2024 Doxycycline Hyclate 50 MG Oral Capsule (Vibramycin)Indic ations:Rosacea Take one tablet by mouth once daily 90 Capsule 1 024 Active Additional Information Patient taking differently: 50 mg Oral PRN, Take one tablet by mouth once daily, Reported on 07/11/2024 Lisinopril 10 MG Oral Tablet (Prinivil) Take 1 Tablet by mouth in the morning. 90 Tablet 3 024 Active Additional Information Patient taking differently:10 mg OralHS, Reported on 07/11/2024 Metoprolol Succinate ER 25 MG Oral Tablet Extended Release 24 Hour (toPROL XL) TAKE 1/2 TABLET BY MOUTH IN THE MORNING AND 1/2 TABLET DAILY BEFORE BEDTIME 90 Tablet 3 024 Active Pantoprazole Sodium 40 MG Oral Tablet Delayed Release (Protonix) Take 1 Tablet by mouth in the morning and 1 Tablet before bedtime. 180 Tablet 3 024 Active Additional Information Patient taking differently:40 mg OralDAILY NOON, Reported on 07/11/2024 Aspirin 81 MG Oral Tablet Delayed Release Take 1 Tablet by mouth in the morning. 90 Tablet 3 024 Active Levothyroxine Sodium 50 MCG Oral Tablet (Levoxyl)Indicati ons:Acquired hypothyroidism TAKE 1 TABLET DAILYAT LEAST 30 MINUTES PRIOR TO BREAKFAST OR OTHER MEDICATIONS 30 Tablet 3 024 Active Calcium Carbonate Antacid 500 MG Oral Tablet Chewable (Tums) Take 1 Tablet by mouth as needed for Heartburn. Active Multivitamin Women 50+ Oral Tablet Take by mouth daily. Active Cranberry 125 MG Oral Tablet Take by mouth. 2023 Discontinued documented as of this encounter (statuses as of 07/11/2024) Active Problems Problem Noted Date Diagnosed Date [...] as of this encounter (statuses as of 07/11/2024) Resolved Problems Problem Noted Date Diagnosed Date [...] as of this encounter (statuses as of 07/11/2024) Immunizations Name Administration Dates Next Due COVID-19 [...] Date Smoking Tobacco: Never Smokeless Tobacco: Never Tobacco Cessation:Counseling Given: Not Answered Alcohol Use Standard Drinks/Week Comments No 0 [...] on file documented as of this encounter Last Filed Vital Signs Vital Sign Reading Time Taken Comments Blood Pressure 148/58 07/11/2024 3:47 PM EST Pulse - - Temperature 36.5 C (97.7 F) 07/11/2024 3:47 PM ES T Respiratory Rate - - Oxygen Saturation - - Inhaled Oxygen Concentration - - Weight 52.6 kg (116 lb) 07/11/2024 3:47 PM EST Height - - Body Mass Index 19.3 05/11/2024 3:03 PM EDT documented in this encounter Progress Notes * Mario Peña MD - 07/11/2024 3:54 PM EST Subjective: Patient seen today for further follow up evaluation of osteoporosis, raynaud's, scleroderma - limited. Since the last visit she rpeotrs her raynaud's is stable. No current digital pits or ulcers. Shecan have episodes in the summer months as well. Her hands are more of an issue than her feet. No dysphagia, VARGAS. + exercise. No falls. She did receive Reclast in November of this year and did well with it. Her GFR slightly dropped after the treatment but still adequate. Now her GFR is stable. No fallsor fractures. She will be due for DEXA in 2025. She has some arthritis pains of her hands but not anything significant. Can worsen with her Raynaud's.. Musculoskeletal ROS: . Abnormal: joint pain . Pain scale (0-10): 0 Other ROS: . Constitutional: normal . Head normal . Eyes: normal . Ears, nose, throat, mouth: normal . Cardiovascular: normal . Respiratory: normal . Gastrointestinal: normal . Genitourinary: normal . Skin: skin thickening, fingers turning white, and cyanosis of fingers All other ROS reviewed and negative Social History: Social History Tobacco Use Smoking status: Never Smokeless tobacco: Never Substance Use Topics Alcohol use: No Vaping/E-Cigarette Use Vaping/E-Cigarette Use Never User Passive Exposure No Counseling Given? No Vaping/E-Cigarette Substances Nicotine No Other No Flavoring No THC No Cannabidiol (CBD) No Vaping/E-Cigarette Devices Disposable No Pre-filled or Refillable Cartridge No Refillable Tank No Pre-filled Pod No Current Outpatient Medications Medication Sig Dispense Refill Mometasone Furoate 50 MCG/ACT nasal spray PLACE 1 SPRAY INTO EACH NOSTRIL DAILY. 17 g 0 metroNIDAZOLE 0.75 % External Cream (MetroCream) Apply to face twice daily 45 g 0 Atorvastatin Calcium 10 MG Oral Tablet (Lipitor) Take 1 Tablet by mouth in the morning. (Patient taking differently: Take 1 Tablet by mouth daily at noon.) 90 Tablet 3 Doxycycline Hyclate 50 MG Oral Capsule (Vibramycin) Take one tablet by mouth once daily (Patient taking differently: Take 1 Capsule by mouth as needed. Take one tablet by mouth once daily) 90 Capsule1 Lisinopril 10 MG Oral Tablet (Prinivil) Take 1 Tablet by mouth in the morning. (Patient taking differently: Take 1 Tablet by mouth at bedtime.) 90 Tablet 3 Metoprolol Succinate ER 25 MG Oral Tablet Extended Release 24 Hour (toPROL XL) TAKE 1/2 TABLET BY MOUTH IN THE MORNING AND 1/2 TABLET DAILY BEFORE BEDTIME 90 Tablet 3 Pantoprazole Sodium 40 MG Oral Tablet Delayed Release (Protonix) Take 1 Tablet by mouth in the morning and 1 Tablet before bedtime. (Patient taking differently: Take 1 Tablet by mouth daily at noon.)180 Tablet 3 Aspirin 81 MG Oral Tablet Delayed Release Take 1 Tablet by mouth in the morning. 90 Tablet 3 Levothyroxine Sodium 50 MCG Oral Tablet (Levoxyl) TAKE 1 TABLET DAILYAT LEAST 30 MINUTES PRIOR TO BREAKFAST OR OTHER MEDICATIONS 30 Tablet 3 Calcium Carbonate Antacid 500 MG Oral Tablet Chewable (Tums) Take 1 Tablet by mouth as needed for Heartburn. Multivitamin Women 50+ Oral Tablet Take by mouth daily. No current facility-administered medications for this visit. Physical Exam: BP 148/58 | Temp 36.5 C (97.7 F) (Infrared ) | Wt 52.6 kg (116 lb) | BMI 19.30 kg/m | BSA 1.55 m General: alert, no distress, and well nourished HENT: normocephalic, external ears normal, no mucosal erythema, no mucosal edema, moist mucosa, no oral ulcers Eye Exam: PERRL, EOMI, conjunctiva are pink and non-injected, sclera clear Neck: supple, no adenopathy, thyroid normal size, non-tender, without nodularity Lymph: no palpable lymphadenopathy Heart: regular rate & rhythm and no gallops Lungs: clear to auscultation , no rales, wheezes or rhonchi Abdomen: abdomen soft, non-tender, and normal bowel sounds Skin: Mild skin thickening noted at the fingers especially the right 3rd DIP area. 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 Will continue with conservative measures.Will get updated labs in October of next year and get set up for Reclast in November. Plan: 1. Continue with conservative measures for Raynaud's 2. Lab work ordered for October 3. Will get set up for Reclast in November 4. Return to clinic in 1 year Mario Peña MD Department of Rheumatology documented in this encounter Nursing Notes * Jj Chua LPN - 07/11/2024 3:46 PM EST Chief Complaint Patient presents with Rheum Follow Up Recheck Crest documented in this encounter Plan of Treatment Upcoming Encounters Date Type Department Care Team (Late st Contact Info) Description 08/25/2024 11:40 AM EST Office Visit Nephrology, [facility] [address] [place] [address] Bernardo Morris MD [address] [place] [address] 08/30/2024 2:00 PM EST Office Visit Otolaryngology [facility] [address] [address] Apurva Davies PA-C [address] [address] 11/15/2024 9:20 AM EDT Office Visit Family Practice [facility] [address] [place] [address] Jah Manriquez, [address] [place] [address] 01/17/2025 11:40 AM EDT Office Visit Rheumatology [facility] [address], [place] [address] Mario Peña MD [address], [place] [address] 05/23/2025 10:15 AM EDT Office Visit Dermatology [facility] [address], [place] [address] Garcia Puri MD [address], [place] [address] Scheduled Orders Name Type Priority Associated Diagnoses Orde r Schedule CREATININE Lab Routine Senile osteoporosis Expected: 11/15/2024 (Approximate), Expires: 07/04/2025 CALCIUM Lab Routine Senile osteoporosis Expected: 11/15/2024 (Approximate), Expires: 07/04/2025 25-HYDROXY VITAMIN D Lab Routine Senile osteoporosis Expected: 11/15/2024 (Approximate), Expires: 07/04/2025 Health Maintenance Due Date Last Done Comments Cologuard 1994 Sigmoidoscopy 1994 Adult Wellness Visit 01/16/2017 01/17/2016 Depression Screening 06/17/2023 06/17/2022, 02/18/2017 (Discussed) Fecal Occult Blood Test 06/23/2023 06/23/2022 COVID-19 Vaccine ( season) 2024 10/24/2020, 09/26/2020 Influenza Vaccine (FLU shot) (#1) 2024 06/01/2017, 07/22/2016, 07/16/2015, Additional history exists Mammogram 11/26/2024 11/27/2023, 12/22, 09/21/2020, Additional history exists GFR 11/29/2024 05/31/2024, 05/0 10/2023, 12/18/2023, Additional history exists CKD HGB USE SMARTSET 72014 01/21/202501/21, 05/05/2023, 03/11/2022, Additional history exists TSH 01/21/2025 01/22/2024, 05/24, 05/05/2023, Additional history exists Albumin/Creatinine Ratio 05/31/2025 024, 05/05/2023, 02/18/2022, Additional history exists CKD PHOS USE SMARTSET 67778 05/31/2025 100 03/2024, 12/25/2023, 12/18/2023, Additional history exists DXA Scan 10/12/2025 10/12/2023, 12/22, 12/25/2015 Lipid Panel 11/04/2028 11/05/2023, 09/24, 08/29/2021, Additional history exists Colonoscopy 03/16/2029 03/16/2024, 02/22, 11/16/2018, Additional history exists Colorectal Cancer Screening 03/16/2029 DTap/Tdap Vaccines (3 - Td or Tdap) 10/24/2029 2019, 05/09/2009 Pneumococcal Vaccine: 65+ Years Completed 08/10/2020, 08/09/2019, 06/05/2010 Zoster Vaccines Completed 05/12/2022, 01/23, 04/10/2014 VITAMIN D LEVEL ONCE IN A LIFETIME-USE SMARTSET# [id number] Completed 01/22/2024, 12/18/2023, 11/25/2023, Additional history exists [...] Not on filedocumented as of this encounter Visit Diagnoses Diagnosis Scleroderma, limited (HCC)- Primary Systemic sclerosis Senile osteoporosis Raynaud's disease without gangrene documented in this encounter Care Teams Laborer Electroplating Relationship Specialty Start Date End Date Jah Manriquez DO [address] [place] [address] PCP - General Family Medicine 10/12/18 documented as of this encounter"
--- OUTSIDE RECORDS SUMMARY | 2024-11-05 17:36 | External Medical Summary ---
Author Name Unknown Address Unknown Organization [id number]:[facility] [place] [address] Laboratory Report Ordering Provider Test Date Status KENNETH SOW 09/23/2024 09:44:02 Final Observation Date Value Abnormality Reference (Units ) Status BUN 09/23/2024 09:44:02 35 Above high normal 6-20 (mg/dL) Final Creatinine 09/23/2024 09:44:02 1.4 Above high normal 0.5-1.0 (mg/dL) Final Glomerular filtration rate/1.73 sq M.predicted [Volume Rate/Area] in Serum, Plasma or Blood by Creatinine-based formula (CKD-EPI) 09/23/2024 09:44:02 39 Below low normal >=60 (mL/min) Final eGFR is calculated based on the CKD-EPI 2020 equation. Sodium 09/23/2024 09:44:02 140 135-146 (m mol/L) Final Potassium 09/23/2024 09:44:02 4.8 3.5-5.1 (m mol/L) Final Cl 09/23/2024 09:44:02 105 98-107 (mm ol/L) Final CO2 09/23/2024 09:44:02 24 22-32 (mmo l/L) Final Anion gap 09/23/2024 09:44:02 11 7-15 (mmol /L) Final Glucose 09/23/2024 09:44:02 92 70-120 (mg /dL) Final Calcium 09/23/2024 09:44:02 9.6 8.4-10.2 ( mg/dL) Final Albumin 09/23/2024 09:44:02 4.3 3.8-5.0 (g /dL) Final Phosphate 09/23/2024 09:44:02 3.4 2.5-4.8 (m g/dL) Final Performing Location [facility] [place] [address]
--- OUTSIDE RECORDS SUMMARY | 2024-11-05 17:36 | External Medical Summary ---
Author Name Unknown Address Unknown Organization [id number]:[facility] [place] [address] [place] [address] Laboratory Report Ordering Provider Test Date Status KELLEY RUVALCABA 05/31/2024 11:09:37 Final Normal: <30 mg/g creatinine< br/>High: 30-300 mg/g creatinine
Very High: >300 mg/g creatinine
Nephrotic: >2200 mg/g creatinine Observation Date Value Abnormality Reference (Units ) Status Albumin, Urine 05/31/2024 11:09:37 2.00 (mg/dL) Final Creatinine, Urine 05/31/2024 11:09:37 92 (mg/dL) Final Albumin/Creatinine [Mass Ratio] in Urine 05/31/2024 11:09:37 22 <30 (mg/g Creat) Final Performing Location [facility] [place] [address] [place] [address]
--- OUTSIDE RECORDS SUMMARY | 2024-11-05 17:36 | External Medical Summary | Summary of Care ---
Author Name Unknown Organization [facility] Address [address] [place] [address] Phone [phone] Care Team Providers Care Commercial Designer Name Role Phone Jah Manriquez DO Primary Care Provider [phone] Reason for Visit * Reason Comments Outpatient Testing Encounter Details Date Type Department Care Team (Late st Contact Info) Description 05/31/2024 8:00 AM EDT Laboratory Laboratory [facility] [address] [place] [id number] [place], [address] [place] [address] Stage 3a chronic kidney disease; MyCode Research Other*[id number] Allergies No known active allergiesdocumented as of this encounter (statuses as of 05/31/2024) Medications Medication Sig Dispensed Refills Start Date End Date Status Mometasone Furoate 50 MCG/ACT nasal sprayIndications:Chr onic rhinitis PLACE 1 SPRAY INTO EACH NOSTRIL DAILY. 17 g 02/10/2019 Active Cranberry 125 MG Oral Tablet Take by mouth. Active metroNIDAZOLE 0.75 % External Cream (MetroCream)Indicati ons:Rosacea Apply to face twice daily 45 g 06/23/2023 Active Atorvastatin Calcium 10 MG Oral Tablet (Lipitor) Take 1 Tablet by mouth in the morning. 90 Tablet 3 12/24/2023 Active Additional Information Patient taking differently:10 mg OralDAILY NOON, Reported on 03/14/2024 Doxycycline Hyclate 50 MG Oral Capsule (Vibramycin)Indicati ons:Rosacea Take one tablet by mouth once daily 90 Capsule 1 12/24/2023 Active Additional Information Patient taking differently: 50 mg Oral PRN, Take one tablet by mouth once daily, Reported on 03/14/2024 Lisinopril 10 MG Oral Tablet (Prinivil) Take 1 Tablet by mouth in the morning. 90 Tablet 3 12/24/2023 Active Additional Information Patient taking differently:10 mg OralHS, Reported on 03/14/2024 Metoprolol Succinate ER 25 MG Oral Tablet Extended Release 24 Hour (toPROL XL) TAKE 1/2 TABLET BY MOUTH IN THE MORNING AND 1/2 TABLET DAILY BEFORE BEDTIME 90 Tablet 3 12/24/2023 Active Pantoprazole Sodium 40 MG Oral Tablet Delayed Release (Protonix) Take 1 Tablet by mouth in the morning and 1 Tablet before bedtime. 180 Tablet 3 12/24/2023 Active Additional Information Patient taking differently:40 mg OralDAILY NOON, Reported on 03/14/2024 Aspirin 81 MG Oral Tablet Delayed Release Take 1 Tablet by mouth in the morning. 90 Tablet 3 12/24/2023 Active Levothyroxine Sodium 50 MCG Oral Tablet (Levoxyl)Indications :Acquired hypothyroidism TAKE 1 TABLET DAILYAT LEAST 30 MINUTES PRIOR TO BREAKFAST OR OTHER MEDICATIONS 30 Tablet 3 03/01/2024 Active Calcium Carbonate Antacid 500 MG Oral Tablet Chewable (Tums) Take 1 Tablet by mouth as needed for Heartburn. Active Multivitamin Women 50+ Oral Tablet Take by mouth daily. Active documented as of this encounter (statuses as of 05/31/2024) Active Problems Problem Noted Date Diagnosed Date HTN, goal below 140/90 04/18/2024 Bilateral impacted cerumen 02/12/2024 Right facial pain 02/12/2024 Senile osteoporosis 11/20/2023 Mitral valve insufficiency 07/14/2023 Raynaud's disease without gangrene 09/03/2021 PSVT (paroxysmal supraventricular tachycardia) 0 09/03/2021 Stage 3a chronic kidney disease 07/02/2020 Overview: Per CKD protocol Pure hypercholesterolemia 05/08/2020 Gastroesophageal reflux disease without esophagi tis 09/27/2019 Vestibular schwannoma 10/05/2014 CREST syndrome 10/29/2009 Hypothyroidism 11/08/2008 Pulsatile tinnitus 05/01/2005 Overview: Son Sensorineural hearing loss 05/01/2005 Overview: Son ADVANCE DIRECTIVE INFORMATION 03/06/2005 Overview: No, Advance Directive brochure offered , patient declined. Rosacea 03/28/2002 Actinic keratosis 03/28/2002 documented as of this encounter (statuses as of 05/31/2024) Resolved Problems Problem Noted Date Diagnosed Date Resolved Date Kidney disease, chronic, sta ge III (GFR 30-59 ml/min) 12/01/2017 07/05/2020 Overview: Per CKD protocol #1 Abnormal renal function test 10/01/2017 05/08/2020 Other tenosynovitis of hand and wrist 01/08/2013 09/25/2017 Wrist pain, left 01/08/2013 09/25/2017 Palpitations 08/20/2007 09/25/2017 documented as of this encounter (statuses as of 05/31/2024) Immunizations Name Administration Dates Next Due COVID-19 [...] money to buy more. Never true 06/16/20 Within the past 12 months, t he food you bought just didn't last and you didn't have money to get more. Never true 06/16/2022 Utilities Answer Date Recorded Do you have trouble paying y our heating, water, or electric bill? (Adult - for ages 18 years and over) Not on file 02/09/2024 Is your family able to pay t he heat, water, or electric bill? (Household - for ages 0-17 years) Not on file 02/09/2024 Does your family have access to good internet? (Household - for ages 0-17 years) Not on file 02/09/2024 Social Connections Answer Date Recorded How often do you feel lonely or isolated from those around you? (Adult - for ages 18 years and over) Not on file 02/09/2024 Sex and Gender Information Value Date Recorded Sex Assigned at Female 12/21/2018 10:05 AM EDT Gender Identity Female 12/21/2018 10:05 AM EDT Sexual Orientation Straight 12/21/2018 10 :07 AM EDT Job Start Date Occupation Industry Not on file Not on file Not on file documented as of this encounter Plan of Treatment Upcoming Encounters Date Type Department Care Team (Late st Contact Info) Description 07/11/2024 4:00 PM EST Office Visit Rheumatology [facility] [address] [place] [address] Mario Peña MD [address] [address] 08/25/2024 11:40 AM EST Office Visit Nephrology, [facility] [address] [place], [place] [address] Bernardo Morris MD [address] [place], [place] [address] 09/20/2024 2:00 PM EST Office Visit Otolaryngology [facility] [address] [place] [address] Apurva Davies PA-C [address] [place] [address] 10/14/2024 10:20 AM EST Office Visit [facility] [address] [place] [address] Jha Manriquez, DO [address] [place] [address] 11/15/2024 9:20 AM EDT Office Visit [facility] [address] [place] [address] Jah Manriquez, DO [address] [place] [address] 05/23/2025 10:15 AM EDT Office Visit Dermatology [facility] [address] [place], [place] [address] Garcia Puri MD [address] [place] [address] Pending Results Name Type Priority Associated Diagnoses Date /Time MYCODE SUBSEQUENT ADULT Lab Routine MyCode Research Other*[id number] 05/31/2024 8:01 AM EDT MYCODE SST1 Lab Routine MyCode Research Other*[id number] 05/31/2024 8:01 AM EDT MYCODE SST2 Lab Routine MyCode Research Other*[id number] 05/31/2024 8:01 AM EDT ALBUMIN / CREATININE RATIO, URINE Lab Routine Stage 3a chronic kidney disease 05/31/2024 11:09 AM EDT Health Maintenance Due Date Last Done Comments Cologuard 1994 Sigmoidoscopy 1994 Adult Wellness Visit 01/16/2017 01/17/2016 Depression Screening 06/17/2023 06/17/2022, 02/18/2017 (Discussed) Fecal Occult Blood Test 06/23/2023 06/23/2022 COVID-19 Vaccine ( season) 2024 10/24/2020, 09/26/2020 Influenza Vaccine (FLU shot) (#1) 2024 06/01/2017, 07/22/2016, 07/16/2015, Additional history exists Albumin/Creatinine Ratio 05/05/2024 023, 02/18/2022, 02/12/2021 Mammogram 11/26/2024 11/27/2023, 12/22, 09/21/2020, Additional history exists GFR 11/29/2024 05/31/2024, 10/2023, 12/18/2023, Additional history exists CKD HGB USE SMARTSET 56326 01/21/202501/21, 05/05/2023, 03/11/2022, Additional history exists TSH 01/21/2025 01/22/2024, 05/24, 05/05/2023, Additional history exists CKD PHOS USE SMARTSET 38695 05/31/2025 100 03/2024, 12/25/2023, 12/18/2023, Additional history [...] D LEVEL ONCE IN A LIFETIME-USE SMARTSET# 87162 Completed 01/22/2024, 12/18/2023, 11/25/2023, Additional history exists [...] Procedure Name Priority Date/Time Associated Diagnosis Comments COMPREHENSIVE METABOLIC PANEL Routine 05/31/2024 8:01 AM EDT Stage 3a chronic kidney disease PHOSPHORUS Routine 05/31/2024 8:01 AM EDT Stage 3a chronic kidney disease documented in this encounter Results * PHOSPHORUS (05/31/2024 8:01 AM EDT) Phosphorus 3.4 2.5 - 4.8 mg/dL 05/31/2024 9:09 AM EDT [facility] 56-02 Blood Venous blood specimen / Unknown Venipuncture / Unknown 05/31/2024 8:01 AM EDT 05/31/2024 8:02 AM EDT Jah Lorenzanaclevelandsean LAB BLOOD ORDERABLE S [facility] [address]- [address] [place] [address] * (ABNORMAL) COMPREHENSIVE METABOLIC PANEL (05/31/2024 8:01 AM EDT) BUN 29(H) 6 - 20 mg/dL 05/31/2024 9:09 AM EDT [facility] 56- CREATININE 1.3(H) 0.5 - 1.0 mg/dL 05/31/2024 9:09 AM EDT [facility] 56- EGFR 42(L) >=60 mL/min 05/31/2024 9:[facility] Comment:eGFR is calculated b ased on the CKD-EPI 2020 equation. SODIUM 141 135 - 146 mmol/L 05/31/2024 9:09 AM EDT [facility] 56 POTASSIUM 4.7 3.5 - 5.1 mmol/L 05/31/2024 9:09 AM T [facility] 56 CHLORIDE 105 98 - 107 mmol/L 05/31/2024 9:09 [address] EDT [address] CO2 26 22 - 32 mmol/L 05/31/2024 9:09 [address] EDT [address] ANION GAP 10 7 - 15 mmol/L 05/31/2024 9:09 [address] EDT [address] GLUCOSE 84 70 - 120 mg/dL 05/31/2024 9:09 AM T [address] Albumin 4.4 3.8 - 5.0 g/dL 05/31/2024 9:09 AM EDT [address] AST 28 10 - 35 U/L 05/31/2024 9:09 AM EDT [address] Alkaline Phosphatase 68 35 - 130 U/L 05/31/2024 9:09 AM EDT [facility] 56 Bilirubin, Total 0.7 <=1.2 mg/dL 05/31/2024 9:09 AM T [facility] 56 CALCIUM 9.2 8.4 - 10.2 mg/dL 05/31/2024 9:09 AM T [facility] 56 Protein 6.7 6.0 - 8.3 g/dL 05/31/2024 9:09 AM EDT [facility] 56 ALT 20 10 - 35 U/L 05/31/2024 9:09 AM T [facility] 56 Blood Venous blood specimen / Unknown Venipuncture / Unknown 05/31/2024 8:01 AM EDT 05/31/2024 8:02 AM EDT Jah Manriquez DO LAB BLOOD ORDERABLE S [facility] [address] [place] [address] documented in this encounter Visit Diagnoses Diagnosis Stage 3a chronic kidney disease MyCode Research Other*[id number] documented in this encounter Care Teams Commercial Designer Relationship Specialty Start Date End Date Jah Manriquez DO [address] [place] [address] PCP - General Family Medicine 10/12/18 documented as of this encounter
--- OUTSIDE RECORDS SUMMARY | 2024-11-05 17:36 | External Medical Summary ---
Author Name Unknown Address Unknown Organization K09:[facility]-[address] [place] [address] Laboratory Report Ordering Provider Test Date Status KELLEY RUVALCABA 05/31/2024 08:01:31 Final Observation Date Value Abnormality Reference (Units ) Status BUN 05/31/2024 08:01:31 29 Above high normal 6-20 (mg/dL) Final Creatinine 05/31/2024 08:01:31 1.3 Above high normal 0.5-1.0 (mg/dL) Final Glomerular filtration rate/1.73 sq M.predicted [Volume Rate/Area] in Serum, Plasma or Blood by Creatinine-based formula (CKD-EPI) 05/31/2024 08:01:31 42 Below low normal >=60 (mL/min) Final eGFR is calculated based on the CKD-EPI 2020 equation. Sodium 05/31/2024 08:01:31 141 135-146 (m mol/L) Final Potassium 05/31/2024 08:01:31 4.7 3.5-5.1 (m mol/L) Final Cl 05/31/2024 08:01:31 105 98-107 (mm ol/L) Final CO2 05/31/2024 08:01:31 26 22-32 (mmo l/L) Final Anion gap 05/31/2024 08:01:31 10 7-15 (mmol /L) Final Glucose 05/31/2024 08:01:31 84 70-120 (mg /dL) Final Albumin 05/31/2024 08:01:31 4.4 3.8-5.0 (g /dL) Final AST (Aspartate aminotransferase) 05/31/2024 08:01:31 28 10-35 (U/L) Final Alk Phos 05/31/2024 08:01:31 68 35-130 (U/ L) Final Bilirubin, Total 05/31/2024 08:01:31 0.7 <=1 .2 (mg/dL) Final Calcium 05/31/2024 08:01:31 9.2 8.4-10.2 ( mg/dL) Final Protein 05/31/2024 08:01:31 6.7 6.0-8.3 (g /dL) Final ALT (Alanine aminotransferase) 05/31/2024 08:01:31 20 10-35 (U/L) Final Performing Location [facility] [address] [place] [address]
--- OUTSIDE RECORDS SUMMARY | 2024-11-05 17:36 | External Medical Summary | Summary of Care ---
Author Name Unknown Organization [facility] Address [address] [facility] [address] Phone [phone] Care Team Providers Care Laborer Wood Preserving Plant Name Role Phone Jah Manriquez DO Primary Care Provider [phone] Reason for Visit * Reason Comments Follow Up Encounter Details Date Type Department Care Team (Late st Contact Info) Description 08/30/2024 2:00 PM EST Office Visit [facility] [place] [address] Apurva Davies PA-C [address] [facility] [place] [address] Bilateral impacted cerumen* Allergies No known active allergiesdocumented as of this encounter (statuses as of 08/30/2024) Medications Mometasone Furoate 50 MCG/ACT nasal sprayIndications:C [...] as of this encounter (statuses as of 08/30/2024) Active Problems Problem Noted Date Diagnosed Date [...] as of this encounter (statuses as of 08/30/2024) Resolved Problems Problem Noted Date Diagnosed Date [...] as of this encounter (statuses as of 08/30/2024) Immunizations Name Administration Dates Next Due COVID-19 [...] Sign Reading Time Taken Comments Blood Pressure - - Pulse - - Temperature 37 C (98.6 F) 08/30/2024 1:52 PM EST Respiratory Rate - - Oxygen Saturation - - Inhaled Oxygen Concentration - - Weight 54.3 kg (119 lb 11.2 oz) 08/30/2024 1:52 PM EST Height - - Body Mass Index 19.92 05/11/2024 3:03 PM EDT documented in this encounter Progress Notes * Apurva Davies PA-C - 08/30/2024 2:02 PM EST SUBJECTIVE: Stephanie Cam is a 73 year old female. Chief Complaint Patient presents with Follow Up HPI: Pt presents for 4 month return appt for cerumen removal. She is doing well with no changes. Did get new hearing aids about a week ago. She has a hx of right sided acoustic neuroma. MRIs have been stable for 9+ years, last was Mar 2022. Patient Active Problem List Diagnosis Rosacea Actinic keratosis Pulsatile tinnitus Sensorineural hearing loss Hypothyroidism Scleroderma, limited ([facility]) Vestibular schwannoma ([facility]) Gastroesophageal reflux disease without esophagitis Pure hypercholesterolemia Raynaud's disease without gangrene PSVT (paroxysmal supraventricular tachycardia) ([facility]) Mitral valve insufficiency Senile osteoporosis Bilateral impacted cerumen Right facial pain HTN, goal below 140/90 Chronic kidney disease, stage 3b ([facility]) Current Outpatient Medications Medication Sig Dispense Refill [...] tablet by mouth once daily) 90 Capsule1 Metoprolol Succinate ER 25 MG Oral Tablet [...] 50+ Oral Tablet Take by mouth daily. Lisinopril 20 MG Oral Tablet (Prinivil) Take 1 Tablet by mouth in the morning. 30 Tablet 5 No current facility-administered medications for this visit. Review of patient's allergies indicates: No Known Allergies REVIEW OF SYSTEMS Negative for constitutional, heart, lung, liver, kidney, digestive, hematologic, neurologic, rheumatologic, or endocrine complaints except as per history of present illness and past medical history. OBJECTIVE: Temp 37 C (98.6 F) (Tympanic) | Wt 54.3 kg (119 lb 11.2 oz) | BMI 19.92 kg/m | BSA 1.58 m PHYSICAL EXAM: General: alert, healthy and no distress Ears: Examination of the ears revealed that the auricles were normally formed with no lesions. The external auditory canals were cleaned of impacted cerumen both canals with forceps atraumatically-see below procedure documentation. The tympanic membranes were intact and freely mobile to pneumatoscopy without perforation or significant retraction pockets. Procedure performed by myself- In order to better examine the ears the patient was brought to the microscope room where her ears were examined under the operating microscope with impacted cerumen removed from forceps from both canals atraumatically. She tolerated procedure well. ASSESSMENT/PLAN: Encounter Diagnoses Name Primary? Bilateral impacted cerumen Yes Plan: Cerumen removed. She will return in 4 months, will order repeat MRI of IAC's at that time. Apurva Davies PA-C 08/30/2024 2:15 PM documented in this encounter Nursing Notes * Myra Sauer LPN - 08/30/2024 1:53 PM EST Pt presents today for routine cerumen removal. Pt denies having any new concerns since her last visit. documented in this encounter Plan of Treatment Upcoming Encounters Date Type Department Care Team (Late st Contact Info) Description 11/15/2024 9:20 AM EDT Office Visit Family Practice [facility] [address] [place] [address] Jah Manriquez, [address] [facility] [place] [address] 01/12/2025 2:30 PM EDT Office Visit Otolaryngology [facility] [address] [facility] [place] [address] Apurva Davies PA-C [address] [facility] [place] [address] 01/17/2025 11:40 AM EDT Office Visit Rheumatology [facility] [address] [facility] [place] [address] Mario Peña MD [address] [facility] [place] [address] 05/23/2025 10:15 AM EDT Office Visit Dermatology [facility] [address] [facility] [place] [address] Garcia Puri MD [address] [facility] [place] [address] Health Maintenance Due Date Last Done Comments [...] Additional history exists CKD HGB USE SMARTSET 24620 01/21/202501/21, 05/05/2023, 03/11/2022, Additional history exists TSH 01/21/2025 01/22/2024, 05/24, 05/05/2023, Additional history exists Albumin/Creatinine Ratio 05/31/2025 024, 05/05/2023, 02/18/2022, Additional history exists CKD PHOS USE SMARTSET 48316 05/31/2025 10/0 03/2024, 12/25/2023, 12/18/2023, Additional history [...] D LEVEL ONCE IN A LIFETIME-USE SMARTSET# 73017 Completed 01/22/2024, 12/18/2023, 11/25/2023, Additional history exists [...] as of this encounter Visit Diagnoses Diagnosis Bilateral impacted cerumen- Primary Impacted cerumen documented in this encounter Care Teams Laborer Wood Preserving Plant Relationship Specialty Start Date End Date Jah Manriquez DO [address] [place] [address] PCP - General Family Medicine 10/12/18 documented as of this encounter"
--- OUTSIDE RECORDS SUMMARY | 2024-11-05 17:36 | External Medical Summary ---
Author Name Unknown Address Unknown Organization K01:[facility] [place] [address] [place] [address] Laboratory Report Ordering Provider Test Date Status JUANJOSEKENNETH 09/23/2024 09:44:02 Final Observation Date Value Abnormality Reference (Units ) Status Parathyrin.intact [Mass/volume] in Serum or Plasma 09/23/2024 09:44:02 60 15-65 (pg/mL) Final Performing Location [facility] [place] [address] [place] [address]
--- OUTSIDE RECORDS SUMMARY | 2024-11-05 17:36 | External Medical Summary | Summary of Care ---
Author Name Unknown Organization [facility] Address [address] [place] [address] Phone [phone] Care Team Providers Care Director Packaging Name Role Phone Jah Manriquez DO Primary Care Provider [phone] Reason for Visit * Reason Comments Outpatient Testing Encounter Details Date Type Department Care Team (Late st Contact Info) Description 09/23/2024 9:30 AM EST Laboratory Laboratory [facility] [address] [place] [id number] [place] [address] [place] [address] Stage 3a chronic kidney disease (HCC) Allergies [...] 9:20 AM EDT Office Visit Family Practice [facility] [address] [facility] [place] [address] Jah Manriquez, DO [address] [facility] [place] [address] 01/17/2025 11:40 AM EDT Office Visit Rheumatology [facility] [address] [phone] Mario Peña MD [address] [facility] [place] [address] 01/19/2025 11:30 AM EDT Office Visit Otolaryngology [facility] [address] [address] Giorgio Choi PA-C [address] [place] [address] 05/23/2025 10:15 AM EDT Office Visit Dermatology [facility] [place] [address] [facility] [place] [address] Garcia Puri MD [address] [facility] [place] [address] 05/29/2025 2:40 PM EDT Office Visit Nephrology, [facility] [address] [facility] [place] [address] Bernardo Morris MD [address] [facility] [place] [address] Pending Results Name Type Priority Associated Diagnoses [...] Additional history exists CKD HGB USE SMARTSET 07790 09/23/202509/23, 09/23/2024, 01/22/2024, Additional history exists CKD PHOS USE SMARTSET 59150 09/23/202508/26, 05/31/2024, 12/25/2023, Additional history exists DXA [...] D LEVEL ONCE IN A LIFETIME-USE SMARTSET# 41813 Completed 01/22/2024, 12/18/2023, 11/25/2023, Additional history exists [...] Yellow, Yellow, Dark Yellow 09/23/2024 10:29 AM [facility] Clarity, Urine Clear Clear 09/23/2024 10:29 AM [facility]-02 Glucose, Urine Negative Negative mg/dL 09/23/2024 10:29 AM [facility] 56-02 Bilirubin, Urine Negative Negative 09/23/2024 10:29 AM [facility] 56-02 Ketone, Urine Trace(A) Negative mg/dL 09/23/2024 10:29 AM [facility] 56-02 Specific [place], Urine 1.015 1.003 - 1.030 09/23/2024 10:29 AM [facility] 56-02 Blood, Urine Negative Negative 09/23/2024 10:29 AM [facility] 56-02 pH, Urine 5.0 5.0 - 7.5 Units 09/23/2024 10:29 AM [facility] 56-02 Protein, Urine Negative Negative mg/dL 09/23/2024 10:29 AM [facility] 56-02 Urobilinogen, Urine 0.2 0.2, 1.0 mg/dL 09/23/2024 10:29 AM [facility]-02 Nitrite, Urine Negative Negative 09/23/2024 10:29 AM [facility]-02 Esterase, Urine Negative Negative 09/23/2024 10:29 AM [facility] 56-02 RBC, Urine 0-2 0 - 2 /HPF 09/23/2024 10:29 AM EST [facility]-02 WBC, Urine 0-2 0 - 2 /HPF 09/23/2024 10:29 AM EST [facility]-02 Bacteria, Urine 0-25 0 - 25 /HPF 09/23/2024 10:29 AM EST [facility]-02 Urine Non-blood Collection / Unknown 09/23/2024 9:51 AM EST 09/23/2024 9:51 AM EST us Bernardo Morris MD LAB URINE ORDERABLES Final Res ult [facility] [address]- [address] [place] [address] * DIFFERENTIAL, AUTOMATED (09/23/2024 9:44 AM EST) WBC 5.78 4.00 - 10.80 K/uL 09/23/2024 9:54 AM [facility]-02 Neutrophils % 60.7 40.0 - 75.0 % 09/23/2024 9:54 AM [facility]-02 Lymphocytes % 28.5 18.0 - 42.0 % 09/23/2024 9:54 AM [facility]-02 Monocytes % 8.7 1.0 - 11.0 % 09/23/2024 9:54 AM [facility] 56-02 Eosinophils % 1.9 0.0 - 6.0 % 09/23/2024 9:54 AM [facility] 56-02 Basophils % 0.2 0.0 - 2.0 % 09/23/2024 9:54 AM [facility]-02 Absolute Neutrophils 3.51 1.80 - 7.70 K/uL 09/23/2024 9:54 AM [facility]-02 Absolute Lymphocytes 1.65 1.00 - 4.80 K/ul 09/23/2024 9:54 AM [facility]-02 Absolute Monocytes 0.50 0.00 - 1.10 K/uL 09/23/2024 9:54 AM [facility]-02 Absolute Eosinophils 0.11 0.00 - 0.70 K/uL 09/23/2024 9:54 AM [facility] 56- Absolute Basophils 0.01 0.00 - 0.20 K/uL 09/23/2024 9:54 AM [facility] 56- Blood Venous blood specimen / Unknown Venipuncture / Unknown 09/23/2024 9:44 AM EST 09/23/2024 9:45 AM EST us Bernardo Morris MD LAB BLOOD ORDERABLES Final Res ult [facility] [address]- [address] [place] [address] * CBC (09/23/2024 9:44 AM EST) WBC 5.78 4.00 - 10.80 K/uL 09/23/2024 9:54 AM [facility] 56- RBC 4.08 3.85 - 5.15 M/uL 09/23/2024 9:54 AM [facility] 56- HGB 12.8 12.0 - 15.3 g/dL 09/23/2024 9:54 AM [facility] 56- HCT 41.0 36.0 - 45.2 % 09/23/2024 9:54 AM [facility] 56- MCV 100.5 81.5 - 97.5 fL 09/23/2024 9:54 AM [facility] 56- MCH 31.4 27.0 - 34.0 pg 09/23/2024 9:54 AM [facility] 56- MCHC 31.2 32.0 - 36.0 g/dL 09/23/2024 9:54 AM [facility] 56- RDW 13.1 11.5 - 15.5 % 09/23/2024 9:54 AM [facility] 56- PLT 159 140 - 400 K/uL 09/23/2024 9:54 AM [facility] 56- MPV 9.3 6.6 - 11.1 fL 09/23/2024 9:54 AM [facility]-02 Blood Venous blood specimen / Unknown Venipuncture / Unknown 09/23/2024 9:44 AM EST 09/23/2024 9:45 AM EST us Bernardo Morris MD LAB BLOOD ORDERABLES Final Res ult [facility] [address]- [address] [place] [address] * (ABNORMAL) RENAL FUNCTION PANEL (09/23/2024 9:44 AM EST) BUN 35(H) 6 - 20 mg/dL 09/23/2024 10:59 AM EST [facility] 56- CREATININE 1.4(H) 0.5 - 1.0 mg/dL 09/23/2024 10:59 AM EST [facility] 56- EGFR 39(L) >=60 mL/min 09/23/2024 10:59 AM EST [facility] 56- Comment:eGFR is calculated b ased on the CKD-EPI 2020 equation. SODIUM 140 135 - 146 mmol/L 09/23/2024 10:59 AM [facility] 56- POTASSIUM 4.8 3.5 - 5.1 mmol/L 09/23/2024 10:59 AM [facility] 56- CHLORIDE 105 98 - 107 mmol/L 09/23/2024 10:59 AM [facility] 56- CO2 24 22 - 32 mmol/L 09/23/2024 10:59 AM [facility] 56- ANION GAP 11 7 - 15 mmol/L 09/23/2024 10:59 AM [facility] 56- GLUCOSE 92 70 - 120 mg/dL 09/23/2024 10:59 AM EST [facility] 56-02 CALCIUM 9.6 8.4 - 10.2 mg/dL 09/23/2024 10:59 AM [facility] 56-02 Albumin 4.3 3.8 - 5.0 g/dL 09/23/2024 10:59 AM [facility] 56- Phosphorus 3.4 2.5 - 4.8 mg/dL 09/23/2024 10:59 AM [facility] 56- Blood Venous blood specimen / Unknown Venipuncture / Unknown 09/23/2024 9:44 AM EST 09/23/2024 9:45 AM EST us Bernardo Morris MD LAB BLOOD ORDERABLES Final Res ult [facility] [address] [place] [address] documented in this encounter Visit Diagnoses Diagnosis Stage 3a chronic kidney disease (HCC) documented in this encounter Care Teams Director Packaging Relationship Specialty Start Date End Date [facility] [address] [facility] [address] [facility] - [facility] Family Medicine 10/12/18 documented as of this encounter
--- OUTSIDE RECORDS SUMMARY | 2024-11-05 17:36 | External Medical Summary ---
Author Name Unknown Address Unknown Organization [id number]:[facility] [address] [place] [address] Laboratory Report Ordering Provider Test Date Status KENNETH SOW 09/23/2024 09:51:44 Final Observation Date Value Abnormality Reference (Units ) Status Color of Urine by Auto 09/23/2024 09:51:44 Yellow Light Yellow, Yellow, Dark Yellow Final Clarity, Urine 09/23/2024 09:51:44 Clear Clear Final Glucose [Mass/volume] in Urine by Automated test strip 09/23/2024 09:51:44 Negative Negative (mg/dL) Final Bilirubin.total [Presence] in Urine by Automated test strip 09/23/2024 09:51:44 Negative Negative Final Ketones [Mass/volume] in Urine by Automated test strip 09/23/2024 09:51:44 Trace Abnormal Negative (mg/dL) Final Specific gravity, Urine 09/23/2024 09:51:44 1.015 1.003-1.030 Final Hemoglobin [Presence] in Urine by Automated test strip 09/23/2024 09:51:44 Negative Negative Final pH, Urine 09/23/2024 09:51:44 5.0 5.0-7.5 (Units) Final Protein [Mass/volume] in Urine by Automated test strip 09/23/2024 09:51:44 Negative Negative (mg/dL) Final Urobilinogen [Mass/volume] in Urine by Automated test strip 09/23/2024 09:51:44 0.2 0.2, 1.0 (mg/dL) Final Nitrite [Presence] in Urine by Automated test strip 09/23/2024 09:51:44 Negative Negative Final Leukocyte esterase [Presence] in Urine by Automated test strip 09/23/2024 09:51:44 Negative Negative Final RBC, Urine 09/23/2024 09:51:44 0-2 0-2 (/HPF) Final WBC, Urine 09/23/2024 09:51:44 0-2 0-2 (/HPF) Final Bacteria [#/area] in Urine sediment by Microscopy high power field 09/23/2024 09:51:44 0-25 0-25 (/HPF) Final Performing Location [facility] [place] [address]
--- OUTSIDE RECORDS SUMMARY | 2024-11-05 17:36 | External Medical Summary ---
Author Name Unknown Address Unknown Organization K01:[facility] [address] [place] [address] Laboratory Report Ordering Provider Test Date Status KENNETH SOW 09/23/2024 09:51:44 Final Normal: <150 mg/ g creatinine
High: 150-500 mg/g creatinine
Very High: >500 mg/g creatinine
Nephrotic: >3000 mg/g creatinine Observation Date Value Abnormality Reference (Units ) Status Protein/Creatinine [Ratio] in Urine 09/23/2024 09:51:44 108 <150 (mg/g ) Final Protein, Urine 09/23/2024 09:51:44 18 (mg/dL) Final Creatinine, Urine 09/23/2024 09:51:44 166 (mg/dL) Final Performing Location [facility] [address] [place] [address]
--- OUTSIDE RECORDS SUMMARY | 2024-11-05 17:36 | External Medical Summary | Summary of Care ---
Author Name Unknown Organization [facility] Address [address] [place] [address] Phone [phone] Care Team Providers Care Process Treater Name Role Phone Jah Manriquez DO Primary Care Provider [phone] Reason for Visit * Reason Comments Chronic Kidney Disease (CKD) Encounter Details Date Type Department Care Team (Late st Contact Info) Description 08/25/2024 11:40 AM EST Office Visit Nephrology, Sridhar Mackay [address] [facility] [place] [address] Bernardo Morris MD [address] [facility] [place] [address] Stage 3a chronic kidney disease (HCC)*; CREST syndrome (HCC); HTN, goal below 140/90 Allergies No known active allergiesdocumented as of this encounter (statuses as of 08/25/2024) Medications Mometasone Furoate 50 MCG/ACT nasal sprayIndications: [...] 08/25/2024 Doxycycline Hyclate 50 MG Oral Capsule (Vibramycin)Indic [...] daily. Active Lisinopril 20 MG Oral Tablet (Prinivil)Indicat ions:HTN, goal below 140/90 Take 1 Tablet by mouth in the morning. 30 Tablet 5 025 Active Lisinopril 10 MG Oral Tablet (Prinivil) Take 1 Tablet by mouth in the morning. 90 Tablet 3 024 2024 Discontinued documented as of this encounter (statuses as of 08/25/2024) Active Problems Problem Noted Date Diagnosed Date [...] as of this encounter (statuses as of 08/25/2024) Resolved Problems Problem Noted Date Diagnosed Date [...] as of this encounter (statuses as of 08/25/2024) Immunizations Name Administration Dates Next Due COVID-19 [...] Sign Reading Time Taken Comments Blood Pressure 164/70 08/25/2024 11:36 AM EST Pulse 54 08/25/2024 11:36 AM EST Temperature 36.1 C (96.9 F) 08/25/2024 11:[address] Respiratory Rate 18 08/25/2024 11:36 AM EST Oxygen Saturation 93% 08/25/2024 11:36 AM EST Inhaled Oxygen Concentration - - Weight 54.4 kg (120 lb) 08/25/2024 11:36 AM EST Height - - Body Mass Index 19.97 05/11/2024 3:03 PM EDT documented in this encounter Progress Notes * Bernardo Morris MD - 08/25/2024 11:50 AM EST Chief Complaint Patient presents with Chronic Kidney Disease (CKD) SUBJECTIVE: HPI:Patient is a 73 year old female with mild CKD 3 with a creatinine 1.2---1.4 . It appears her GFR has been in this range for the last few years. Her medical problems includes crest syndrome hyperlipidemia rosacea on chronic doxycycline. However she does not have diabetes hypertension heart disease cancer lung disease childhood kidney disease. No family history of kidney disease Since last visit 11/2023----she had sudden onset of chest pain with high blood pressure and went to [facility]. She had elevated troponin and had heart catheterization. She did not have any significant blockage. Blood pressure lately is good. No changes to meds-attempted to reduce refluxmed but was not successful Overall feeling good - does not check bp at home but does have a cuff Drinks decaf tea, juice in the morning but approx 1 -2 bottles of water a day NSAID No Renal Stone No Herbal Medication No Urinary Complaints No HISTORY: Current Outpatient Medications Medication Sig Dispense Refill Atorvastatin Calcium 10 MG Oral Tablet (Lipitor) Take 1 Tablet by mouth in the morning. (Patient taking differently: Take 1 Tablet by mouth daily at noon.) 90 Tablet 3 Lisinopril 10 MG Oral Tablet (Prinivil) Take [...] 50+ Oral Tablet Take by mouth daily. Mometasone Furoate 50 MCG/ACT nasal spray PLACE 1 SPRAY INTO EACH [place] DAILY. 17 g 0 metroNIDAZOLE 0.75 % External Cream (MetroCream) Apply to face twice daily 45 g 0 Doxycycline Hyclate 50 MG Oral Capsule (Vibramycin) Take one tablet by mouth once daily (Patient taking differently: Take 1 Capsule by mouth as needed. Take one tablet by mouth once daily) 90 Capsule1 No current facility-administered medications for this visit. Review of patient's allergies indicates: No Known Allergies Past Medical History: Diagnosis Date Actinic keratosis 03/28/2002 CREST syndrome 10/29/2009 High blood pressure HYPOTHYROIDISM NOS 11/08/2008 Mitral valve insufficiency 07/14/2023 Other tenosynovitis of hand and wrist 01/08/2013 Palpitations 08/20/2007 Pulsatile tinnitus 05/01/2005 [place] Raynaud's disease without gangrene 09/03/2021 Rosacea Sensorineural hearing loss 05/01/2005 [place] Wrist pain, left 01/08/2013 Past Surgical History: Procedure Laterality Date COLONOSCOPY 11/20/2008 normal [facility] Sim[place], repeat in 2019 COLONOSCOPY, DIAGNOSTIC (RECTUM) 11/16/2018 diverticulosis sigmoid colon/external and internal hemorrhoids/biopsies show adenomatous and hyperplastic polyps/recall 5 years/COLONOSCOPY FLEXIBLE PROXIMAL DIAGNOSTIC performed by Erin Youssef DO at ENDOSCOPY [facility] COLONOSCOPY, DIAGNOSTIC (RECTUM) N/A 03/16/2024 diverticulosis/biopsies show adenomatous polyps/COLONOSCOPY FLEXIBLE PROXIMAL DIAGNOSTIC performed by Melia Webster MD at ENDOSCOPY [facility] COLONOSCOPY, OUTSIDE PROCEDURE 11/10/2008 Dr Belcher, [facility], no path, no polyps EGD, FLEXIBLE, DIAGNOSTIC 09/14/2015 gastritis on bx/ESOPHAGOGASTRODUODENOSCOPY (EGD), FLEXIBLE, TRANSORAL, DIAGNOSTIC performed by Ok Carrera MD at ENDOSCOPY [facility] EGD, FLEXIBLE, DIAGNOSTIC 09/21/2019 reflux esophagitis / ESOPHAGOGASTRODUODENOSCOPY (EGD), FLEXIBLE, TRANSORAL, DIAGNOSTIC performed byErin Youssef DO at ENDOSCOPY [facility] INFORMATION 10/19/2003 The colon could be further evaluated by colonoscopy. MAMMOGRAM - BILATERAL 04/10/2005 [facility] code 2 MAMMOGRAM - BILATERAL 04/22/2006 [facility] code 2 MAMMOGRAM SCREENING-BILATERAL 10/19/2008 birad 2 MEMORY LOOP MONITOR; COMM PRAC 07/06/2007 20 recorded events correlating to atrial and ventricular ectopy NM DEXA SCAN, OUTSIDE PROCEDURE 12/17/2009 [facility] osteopenia of the lumbar spine, rest normal PAP SCREEN 01/19/2002 WNL PAP SCREEN 04/17/2004 WNL PAP SCREEN 05/20/2005 WNL PAP SCREEN 06/11/2006 WNL PAP SMEAR, OUTSIDE PROCEDURE 11/16/2009 inadequate specimen/Cook TOTAL ABD HYSTERECTOMY W/WO REMOVAL OF TUBE(S) 1996 Family History Problem Relation Name Age of Onset Cancer Father skin cancer,lung cancer Other (Other) Mother precancerous lesion removed Heart Disorder Mother arrhythmia Heart Disorder Father angioplasty Social History Socioeconomic History Marital status: Spouse name: Bob Number of children: 4 Years of education: 12 Highest education level: Not on file Occupational History 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 Tobacco Use Smoking status: Never Smokeless tobacco: Never Vaping Use Vaping status: Never Used Substance and Sexual Activity Alcohol use: No Drug use: No Sexual activity: Yes Partners: Male Other Topics Concern Service Not Asked Blood Transfusions Not Asked Caffeine Concern Not Asked Occupational Exposure Not Asked Hobby Hazards Not Asked Sleep Concern Not Asked Stress Concern Not Asked Weight Concern Not Asked Special Diet Not Asked Back Care Not Asked Exercise Not Asked Bike Helmet Not Asked Seat Belt Yes Self-Exams Not Asked Social History Narrative ; 4 healthy 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; 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; Social Needs Financial Resource Strain: Not on file Food Insecurity: No Food Insecurity (06/16/2022) Hunger Vital Sign Worried About Running Out of Food in the Last Year: Never true Ran Out of Food in the Last Year: Never true Transportation Needs: Not on file Social Connections: Not on file Housing Stability: Not on file Ambulation: Without assisted device REVIEW OF SYSTEMS General: No fatigue, No change in weight Head: No significant headache Respiratory: No cough,No wheezing, No shortness of breath Cardiovascular:No chest pain, +pvcs hx s, and No syncope, no falls Gastrointestinal: No nausea, vomiting, diarrhea No blood in stools Musculoskeletal: No edema Skin: No itching All other systems were reviewed and were negative. OBJECTIVE: BP 164/70 (BP Site: Right Arm, BP Position: Sitting, BP Cuff Size: Regular) | Pulse 54 | Temp 36.1 C (96.9 F) | Resp 18 | Wt 54.4 kg (120 lb) | SpO2 93% | BMI 19.97 kg/m | BSA 1.58 m Wt Readings from Last 1 Encounters: 08/25/24 54.4 kg (120 lb) General appearance: alert, no apparent distress. HEAD: Normocephalic, No masses, lesions, tenderness Respiratory: clear to auscultation, no rhonchi, no wheezes, and no crackles Heart: regular rate and regular rhythm Abdomen: abdomen soft, non-tender, and no CVA tenderness EXTREMITIES: no edema, Skin: skin color, texture, turgor are normal NEURO: alert & oriented x 3 with fluent speech, no focal motor/sensory deficits No tremor Patient is a reliable historian of events Last 4 BP Readings: BP Readings from Last 4 Encounters: 08/25/24 164/70 07/11/24 148/58 04/12/24 112/60 03/16/24 108/58 Last 3 Weights: Wt Readings from Last 3 Encounters: 08/25/24 54.4 kg (120 lb) 07/11/24 52.6 kg (116 lb) 05/11/24 52.2 kg (115 lb) Estimated body mass index is 19.97 kg/m as calculated from the following: Height as of 05/11/24: 1.651 m (5' 5"). Weight as of this encounter: 54.4 kg (120 lb). LABS: Latest Reference Range & Units 07/30/20 17:10 02/12/21 08:45 08/29/21 09:01 02/18/22 15:38 03/11/22 10:49 09/16/22 10:01 Sodium 135 - 146 mmol/L 141 143 142 141 136 141 Potassium 3.5 - 5.1 mmol/L 4.5 4.9 4.4 4.8 4.7 4.5 Chloride 98 - 107 mmol/L 103 107 104 103 101 103 CO2 22 - 32 mmol/L 27 29 24 27 25 27 BUN 6 - 20 mg/dL 20 21 (H) 22 (H) 30 (H) 26 (H) 24 (H) Creatinine 0.5 - 1.0 mg/dL 1.2 (H) 1.2 (H) 1.2 (H) 1.2 (H) 1.2 (H) 1.2 (H) Estimated Glomerular Filtration Rate >=60 mL/min 48.2 (L) 45.1 (L) 47 (L) 49 (L) 48 (L) 48 (L) Anion Gap 7 - 15 mmol/L 11 7 14 11 10 11 Glucose 70 - 120 mg/dL 89 86 80 106 77 89 Calcium 8.4 - 10.2 mg/dL 9.6 9.6 9.4 9.9 9.3 10.0 (H): Data is abnormally high (L): Data is abnormally low Latest Reference Range & Units 02/12/21 08:52 02/18/22 15:43 03/11/22 10:53 Albumin / Creatinine Ratio, Urine <30 mg/g Creat <10 31 (H) ALBUMIN / CREATININE RATIO, URINE Rpt Rpt ! Protein/ Creatinine Ratio, Urine <150 mg/g 60 109 PROTEIN/ CREATININE RATIO, URINE Rpt Rpt (H): Data is abnormally high !: Data is abnormal Rpt: View report in Results Review for more information IMAGING: EXAM US RENAL-04/11/2022 3:04 pm HISTORY CKD 3 TECHNIQUE Real time sonographic imaging. COMPARISON No comparisons FINDINGS RIGHT KIDNEY: 8.5 cmx3.6 cmx4.9 cm. Small for size. Normal echogenicity. No hydronephrosis, shadowing calculi, or mass. LEFT KIDNEY: 9.8 cmx3.1 cmx3.6 cm. Normal size and echogenicity. No hydronephrosis, shadowing calculi, or mass. BLADDER: Partially filled. AORTA: Visualized portions normal in caliber. Atherosclerotic disease. IMPRESSION IMPRESSION Small right kidney. ASSESSMENT/PLAN: Stage 3a chronic kidney disease (HCC) (Primary) CKD stage 3A without proteinuria non specific cause. CREST syndrome and Scleroderma can be associated with slightly higher incidence of interstitial fibrosis and tubular atrophy than what you would get with age related. But there is no plan to do renalbiopsy to prove this as the management still the same.No microscopic proteinuria but noted so obviously there is no significant disease going on. Hematuria was noted in Sep secodary to UTI. She has no risk factor for kidney decline so her prognosis is still good and risk of ESRD is very very low. She is due for the Reclast injection. At her level of GFR she can take this. Last blood work was done in May 2024 and was similar to previous readings with a creatinine of 1.3 GFR of 42 Will do labs as below in few months with the PCP appointment - NEPHROLOGY FOLLOW UP APPT (DEPARTMENT USE ONLY); Future; Expected date: 02/22/2025 - CBC WITH WBC DIFFERENTIAL; Future; Expected date: 08/25/2024 - PTH; Future; Expected date: 08/25/2024 - PROTEIN/ CREATININE RATIO, URINE; Future; Expected date: 08/25/2024 - RENAL FUNCTION PANEL; Future; Expected date: 08/25/2024 - 25-HYDROXY VITAMIN D; Future; Expected date: 08/25/2024 - URINALYSIS WITH MICROSCOPIC EXAM; Future; Expected date: 08/25/2024 CREST syndrome (HCC) Seems stable lately HTN, goal below 140/90 Blood pressure is not controlled. In the past she had low blood pressure which then led to stoppingamlodipine. She is very hesitant in raising her blood pressure regimen. After detailed discussion she has agreed to increase the dose of lisinopril to 20 daily. Suggested her to check blood pressure at home regularly and send us a log through [facility] message for further adjustment pressure medication - Lisinopril 20 MG Oral Tablet (Prinivil); Take 1 Tablet by mouth in the morning. Bernardo Morris MD documented in this encounter Nursing Notes * Kiesha Sauer RN - 08/25/2024 11:46 AM EST Follow up visit today. NO recent illness or hospital stays. documented in this encounter Plan of Treatment Upcoming Encounters Date Type Department Care Team (Late st Contact Info) Description 08/30/2024 2:00 PM EST Office Visit Otolaryngology [facility] [address] [place] [address] Apurva Davies PA-C [address] [place] [address] 11/15/2024 9:20 AM EDT Office Visit Family Practice [facility] [address] [facility] [place] [address] Jah Manriquez DO [address] [facility] [place] [address] 01/17/2025 11:40 AM EDT Office Visit Rheumatology [place] [id number] [place] [address] Mario Peña MD [address] [place], [place] [address] 05/23/2025 10:15 AM EDT Office Visit Dermatology [facility] [address] [facility] [place] [address] Garcia Puri MD [address] [facility] [place], [place] [address] Scheduled Orders Name Type Priority Associated Diagnoses Orde r Schedule CBC WITH WBC DIFFERENTIAL Lab Routine Stage 3a chronic kidney disease (HCC) Expected: 08/25/2024 (Approximate), Expires: 02/21/2025 PTH Lab Routine Stage 3a chronic kidney disease (HCC) Expected: 08/25/2024 (Approximate), Expires: 02/21/2025 PROTEIN/ CREATININE RATIO, URINE Lab Routine Stage 3a chronic kidney disease (HCC) Expected: 08/25/2024 (Approximate), Expires: 02/21/2025 RENAL FUNCTION PANEL Lab Routine Stage 3a chronic kidney disease (HCC) Expected: 08/25/2024 (Approximate), Expires: 02/21/2025 25-HYDROXY VITAMIN D Lab Routine Stage 3a chronic kidney disease (HCC) Expected: 08/25/2024 (Approximate), Expires: 02/21/2025 URINALYSIS WITH MICROSCOPIC EXAM Lab Routine Stage 3a chronic kidney disease (HCC) Expected: 08/25/2024 (Approximate), Expires: 02/21/2025 Health Maintenance Due Date Last Done Comments Cologuard 1994 Sigmoidoscopy 1994 Adult Wellness Visit 01/16/2017 01/17/2016 Depression Screening 06/17/2023 06/17/2022, 02/18/2017 (Discussed) Fecal Occult Blood Test 06/23/2023 06/23/2022 COVID-19 Vaccine ( season) 2024 10/24/2020, 09/26/2020 Influenza Vaccine (FLU shot) (#1) 2024 06/01/2017, 07/22/2016, 07/16/2015, Additional history exists Mammogram 11/26/2024 11/27/2023, 12/22, 09/21/2020, Additional history exists GFR 11/29/2024 05/31/2024, 0510/2023, 12/18/2023, Additional history exists CKD HGB USE SMARTSET 81131 01/21/202501/21, 05/05/2023, 03/11/2022, Additional history exists TSH 01/21/2025 01/22/2024, 05/24, 05/05/2023, Additional history exists Albumin/Creatinine Ratio 05/31/2025 024, 05/05/2023, 02/18/2022, Additional history exists CKD PHOS USE SMARTSET 75494 05/31/2025 100 03/2024, 12/25/2023, 12/18/2023, Additional history [...] D LEVEL ONCE IN A LIFETIME-USE SMARTSET# [id number] Completed 01/22/2024, 12/18/2023, 11/25/2023, Additional history exists [...] as of this encounter Visit Diagnoses Diagnosis Stage 3a chronic kidney disease (HCC)- Primary CREST syndrome (HCC) Systemic sclerosis HTN, goal below 140/90 Unspecified essential hypertension documented in this encounter Care Teams Process Treater Relationship Specialty Start Date End Date Jah Manriquez DO [address] [place] [address] PCP - General Family Medicine 10/12/18 documented as of this encounter
--- OUTSIDE RECORDS SUMMARY | 2024-11-05 17:36 | External Medical Summary | Summary of Care ---
Author Name Unknown Organization [facility] Address [address] [place] [address] Phone [phone] Care Team Providers Care Leakage Tester Name Role Phone Jah Manriquez DO Primary Care Provider [phone] Reason for Visit * Reason Comments Outpatient Testing Encounter Details Date Type Department Care Team (Late st Contact Info) Description 05/31/2024 8:00 AM EDT Laboratory Laboratory [facility] [address] [place] [id number] [place], [address] [place] [address] Stage 3a chronic kidney disease; [employer] Other*[id number] Allergies No known active allergiesdocumented as of [...] 07/11/2024 4:00 PM EST Office Visit Rheumatology [facility] [address] [place] [address] Mario Peña MD [address] [place] [address] 08/25/2024 11:40 AM EST Office Visit Nephrology, Sridhar Mackay [address] [place], [place] [address] Bernardo Morris MD [address] [place], [place] [address] 09/20/2024 2:00 PM EST Office Visit Otolaryngology [facility] [address] [place] [address] Apurva Davies PA-C [address] [place] [address] 10/14/2024 10:20 AM EST Office Visit [facility] [address] [place] [address] Jah Manriquez, DO [address] [place] [address] 11/15/2024 9:20 AM EDT Office Visit [facility] [address] [place] [address] Jah Manriquez, DO [address] [place] [address] 05/23/2025 10:15 AM EDT Office Visit Dermatology [facility] [address] [place], [place] [address] Garcia Puri MD [address] [place] [address] Pending Results Name Type Priority Associated Diagnoses Date /Time COMPREHENSIVE METABOLIC PANEL Lab Routine Stage 3a chronic kidney disease 05/31/2024 8:01 AM EDT PHOSPHORUS Lab Routine Stage 3a chronic kidney disease 05/31/2024 8:01 AM EDT MYCODE SUBSEQUENT ADULT Lab Routine [employer] Other*[id number] 05/31/2024 8:01 AM EDT MYCODE SST1 Lab Routine [employer] Other*[id number] 05/31/2024 8:01 AM EDT MYCODE SST2 Lab Routine [employer] Other*[id number] 05/31/2024 8:01 AM EDT Health Maintenance Due Date Last Done Comments Cologuard 1994 Sigmoidoscopy 1994 Adult Wellness Visit 01/16/2017 01/17/2016 Depression Screening 06/17/2023 06/17/2022, 02/18/2017 (Discussed) Fecal Occult Blood Test 06/23/2023 06/23/2022 COVID-19 Vaccine ( season) 2024 10/24/2020, 09/26/2020 Influenza Vaccine (FLU shot) (#1) 2024 06/01/2017, 07/22/2016, 07/16/2015, Additional history exists Albumin/Creatinine Ratio 05/05/2024 023, 02/18/2022, 02/12/2021 GFR 06/26/2024 12/25/2023, 11/23, 11/25/2023, Additional history exists Mammogram 11/26/2024 11/27/2023, 12/22, 09/21/2020, Additional history exists CKD PHOS USE SMARTSET 79271 12/24/2024 05/0 10/2023, 12/18/2023, 05/05/2023, Additional history exists CKD HGB USE SMARTSET 02896 01/21/202501/21, 05/05/2023, 03/11/2022, Additional history exists TSH 01/21/2025 01/22/2024, 05/24, 05/05/2023, Additional history exists DXA Scan 10/12/2025 10/12/2023, 12/22, 12/25/2015 Lipid Panel 11/04/2028 11/05/2023, 09/24, 08/29/2021, Additional history exists Colonoscopy 03/16/2029 03/16/2024, 02/22, 11/16/2018, Additional history exists Colorectal Cancer Screening 03/16/2029 DTap/Tdap Vaccines (3 - Td or Tdap) 10/24/2029 2019, 05/09/2009 Pneumococcal Vaccine: 65+ Years Completed 08/10/2020, 08/09/2019, 06/05/2010 Zoster Vaccines Completed 05/12/2022, 01/23, 04/10/2014 VITAMIN D LEVEL ONCE IN A LIFETIME-USE SMARTSET# [id number] Completed 01/22/2024, 12/18/2023, 11/25/2023, Additional history exists [...] Stage 3a chronic kidney disease [employer] Other*[id number] documented in this encounter Care Teams Leakage Tester Relationship Specialty Start Date End Date Jah Manriquez DO [address] [place] [address] PCP - General Family Medicine 10/12/18 documented as of this encounter
--- OUTSIDE RECORDS SUMMARY | 2024-11-05 17:37 | External Medical Summary | Summary of Care ---
Author Name Unknown Organization [facility] Address [address] [facility] [place] [address] Phone [phone] Care Team Providers Care Field Service Technician Poultry Name Role Phone Jah Manriquez DO Primary Care Provider [phone] Reason for Visit * Reason Comments Follow Up Encounter Details Date Type Department Care Team (Late st Contact Info) Description 05/11/2024 3:00 PM EDT Office Visit Otolaryngology [facility] [address] [place] [address] Apurva Davies PA-C [address] [facility] [place] [address] Bilateral impacted cerumen* Allergies No known active allergiesdocumented as of this encounter (statuses as of 05/11/2024) Medications Medication Sig Dispensed Refills Start Date [...] as of this encounter (statuses as of 05/11/2024) Active Problems Problem Noted Date Diagnosed Date [...] as of this encounter (statuses as of 05/11/2024) Resolved Problems Problem Noted Date Diagnosed Date Resolved Date Kidney disease, chronic, sta ge III (GFR 30-59 ml/min) 12/01/2017 07/05/2020 Overview: Per CKD protocol #1 Abnormal renal function test 10/01/2017 05/08/2020 Other tenosynovitis of hand and wrist 01/08/2013 09/25/2017 Wrist pain, left 01/08/2013 09/25/2017 Palpitations 08/20/2007 09/25/2017 documented as of this encounter (statuses as of 05/11/2024) Immunizations Name Administration Dates Next Due COVID-19 mRNA, LNP-s, No Pre serve, 2-Dose Series (Moderna) 10/24/2020,09/26/2020 Pneumococcal Conjugate Vacc, 13 Valent (Prevnar) 08/09/2019 Pneumococcal Polysaccharide PPV23 (Pneumovax) 08/10/2020,06/05/2010 06/05/2020 Seasonal Influenza, PF, 6 M & above, IM , (FluLaval or Fluzone) 06/01/2017 Seasonal Influenza, Quadriva lent, No Preserve, IM 07/22/2016,07/16/2015 Seasonal Influenza, Trivalen t, (IIV3), with Preserv, (Fluzone) 05/30/2014,06/08/2013,08/04/2012,05/25 TDAP (age 10 and older)(Boostrix) 2019 TDAP, [...] Pressure - - Pulse - - Temperature 36.4 C (97.6 F) 05/11/2024 3:03 PM ED T Respiratory Rate - - Oxygen Saturation - - Inhaled Oxygen Concentration - - Weight 52.2 kg (115 lb) 05/11/2024 3:03 PM EDT Height 165.1 cm (5' 5") 05/11/2024 3:03 PM EDT Body Mass Index 19.14 05/11/2024 3:03 PM EDT documented in this encounter Progress Notes * Apurva Davies PA-C - 05/11/2024 3:49 PM EDT SUBJECTIVE: Stephanie Cam is a 73 year old female. Chief Complaint Patient presents with Follow Up HPI: Pt presents for 4 month return appt for cerumen removal. An audiology in June, possible new hearing aids. She has a hx of right sided acoustic neuroma. MRIs have been stable for 9+ years, last was Mar 2022. Patient Active Problem List Diagnosis Rosacea Actinic keratosis ADVANCE DIRECTIVE INFORMATION Pulsatile tinnitus Sensorineural hearing loss Hypothyroidism CREST syndrome Vestibular schwannoma (HCC) Gastroesophageal reflux disease without esophagitis Pure hypercholesterolemia Stage 3a chronic kidney disease Raynaud's disease without gangrene PSVT (paroxysmal supraventricular tachycardia) (HCC) Mitral valve insufficiency Senile osteoporosis Bilateral impacted cerumen Right facial pain HTN, goal below 140/90 Current Outpatient Medications Medication Sig Dispense Refill Mometasone Furoate 50 MCG/ACT nasal spray PLACE 1 SPRAY INTO EACH NOSTRIL DAILY. 17 g 0 Cranberry 125 MG Oral Tablet Take by mouth. metroNIDAZOLE 0.75 % External Cream (MetroCream) Apply [...] illness and past medical history. OBJECTIVE: Temp 36.4 C (97.6 F) (Tympanic) | Ht 1.651 m (5' 5") | Wt 52.2 kg (115 lb) | BMI 19.14 kg/m |BSA 1.55 m PHYSICAL EXAM: General: alert, healthy and [...] Primary? Bilateral impacted cerumen Yes Plan: Cerumen removed from both canals. She will return for Cerumen removal in 4 months. Will repeat MRI of IAC's in 6-9 months documented in this encounter Nursing Notes * Myra Sauer LPN - 05/11/2024 3:02 PM EDT Pt presents today for routine cerumen removal. Pt denies having further concerns documented in this encounter Plan of Treatment Upcoming Encounters Date Type Department Care Team (Late st Contact Info) Description 07/11/2024 4:00 PM EST Office Visit Rheumatology [address] [place] [address] Mario Peña MD [address] [employer] [place], [place] [address] 08/25/2024 11:40 AM EST Office Visit Nephrology, [facility] [address] [place], [place] [address] Bernardo Morris MD [address] [facility] [place], [place] [address] 09/20/2024 2:00 PM EST Office Visit Otolaryngology [facility] [address] [place] [address] Apurva Davies PA-C [facility] [place] [address] 10/14/2024 10:20 AM EST Office Visit [facility] [address] [place], [place] [address] Jah Manriquez, DO [address] [place], [place] [address] 11/15/2024 9:20 AM EDT Office Visit [facility] [address] [place], [place] [address] Jah Manriquez, DO [address] [place], [place] [address] 05/23/2025 10:15 AM EDT Office Visit Dermatology [facility] [address] [place], [place] [address] Garcia Puri MD [address] [facility] [place], [place] [address] Health Maintenance Due Date Last Done Comments [...] Additional history exists CKD PHOS USE SMARTSET 30029 12/24/2024 05/0 10/2023, 12/18/2023, 05/05/2023, Additional history exists CKD HGB USE SMARTSET 89430 01/21/202501/21, 05/05/2023, 03/11/2022, Additional history exists TSH [...] D LEVEL ONCE IN A LIFETIME-USE SMARTSET# 45356 Completed 01/22/2024, 12/18/2023, 11/25/2023, Additional history exists [...] cerumen documented in this encounter Care Teams Field Service Technician Poultry Relationship Specialty Start Date End Date Jah Manriquez DO [address] [place] [address] PCP - General Family Medicine 10/12/18 documented as of this encounter
--- OUTSIDE RECORDS SUMMARY | 2024-11-05 17:37 | External Medical Summary ---
Author Name Unknown Address Unknown Organization [id number]:[facility] [place] [address] [place] [address] Laboratory Report Ordering Provider Test Date Status BRITTNI MEADOWS 05/31/2024 08:01:31 Final Observation Date Value Abnormality Reference (Units ) Status MYCODE SPECIMEN-SST 05/31/2024 08:01:31 Freezing of extracted DNA, whole blood and/or serum. Final Performing Location [facility] [place] [address] [place] [address]
--- OUTSIDE RECORDS SUMMARY | 2024-11-05 17:37 | External Medical Summary ---
Author Name Unknown Address Unknown Organization K01:[facility] [place] [address] [place] [address] Laboratory Report Ordering Provider Test Date Status BRITTNI MEADOWS 05/31/2024 08:01:31 Final Observation Date Value Abnormality Reference (Units ) Status MYCODE SPECIMEN-SST 05/31/2024 08:01:31 Freezing of extracted DNA, whole blood and/or serum. Final Performing Location [facility] [place] [address] [place] [address]
--- OUTSIDE RECORDS SUMMARY | 2024-11-05 17:37 | External Medical Summary ---
Author Name Unknown Address Unknown Organization K09:[facility] [place] [address] Laboratory Report Ordering Provider Test Date Status KELLEY RUVALCABA 05/31/2024 08:01:31 Final Observation Date Value Abnormality Reference (Units ) Status Phosphate 05/31/2024 08:01:31 3.4 2.5-4.8 (m g/dL) Final Performing Location [facility] [place] [address]
--- OUTSIDE RECORDS SUMMARY | 2024-11-05 17:37 | External Medical Summary | Summary of Care ---
Author Name Unknown Organization [facility] Address [address] [place] [address] Phone [phone] Care Team Providers Care Statistical Clerk Advertising Name Role Phone Mitra Jah Margarita SMITH Primary Care Provider [phone] Encounter Details Date Type Department Care Team (Late st Contact Info) Description 05/10/2024 Orders Only Outcomes Research Department [address] [place] [address] Isabelle Dowd CHRA [employer] Research Other*[id number] Allergies No known active allergiesdocumented as of this encounter (statuses as of 05/10/2024) Medications Medication Sig Dispensed Refills Start Date [...] as of this encounter (statuses as of 05/10/2024) Active Problems Problem Noted Date Diagnosed Date [...] as of this encounter (statuses as of 05/10/2024) Resolved Problems Problem Noted Date Diagnosed Date Resolved Date Kidney disease, chronic, sta ge III (GFR 30-59 ml/min) 12/01/2017 07/05/2020 Overview: Per CKD protocol #1 Abnormal renal function test 10/01/2017 05/08/2020 Other tenosynovitis of hand and wrist 01/08/2013 09/25/2017 Wrist pain, left 01/08/2013 09/25/2017 Palpitations 08/20/2007 09/25/2017 documented as of this encounter (statuses as of 05/10/2024) Immunizations Name Administration Dates Next Due COVID-19 [...] 05/11/2024 3:00 PM EDT Office Visit Otolaryngology [facility] [address] [place] [address] Apurva Davies PA-C [address] [address] 07/11/2024 4:00 PM EST Office Visit Rheumatology [place] [id number] [place] [address] Mario Peña MD [address] [place] [address] 08/25/2024 11:40 AM EST Office Visit Nephrology, [address] [place] [address] Bernardo Morris MD [address] [facility] [address] 10/14/2024 10:20 AM EST Office Visit [facility] [address] [facility] [place], [place] [address] Jah Manriquez, DO [address] [facility] [place], [place] [address] 11/15/2024 9:20 AM EDT Office Visit [facility] [address] [facility] [place], [place] [address] Jah Manriquez, DO [address] [facility] [place], [place] [address] 05/23/2025 10:15 AM EDT Office Visit Dermatology [facility] [address] [facility] [place], [place] [address] Garcia Puri MD [address] [facility] [place], [place] [address] Scheduled Orders Name Type Priority Associated Diagnoses Orde r Schedule MYCODE SUBSEQUENT ADULT Lab Routine [employer] Research Other*[id number] Every 6 Months for 2 Occurrences starting 05/10/2024 until 05/30/2025 Health Maintenance Due Date Last Done Comments [...] Additional history exists CKD PHOS USE SMARTSET 13568 12/24/2024 05/0 10/2023, 12/18/2023, 05/05/2023, Additional history exists CKD HGB USE SMARTSET 08978 01/21/202501/21, 05/05/2023, 03/11/2022, Additional history exists TSH [...] D LEVEL ONCE IN A LIFETIME-USE SMARTSET# [id number] Completed 01/22/2024, 12/18/2023, 11/25/2023, Additional history exists [...] as of this encounter Visit Diagnoses Diagnosis [employer] [facility] Other*[id number] documented in this encounter Care Teams Statistical Clerk Advertising Relationship Specialty Start Date End Date Jah Manriquez DO [address] [place] [address] PCP - General Family Medicine 10/12/18 documented as of this encounter
--- NOTE | 2024-11-05 17:51 | Emergency Department Note ---
Impression & Plan Hypertension, Pressure in head ED Provider Note NAME: ELENA TURNER AGE: 74 SEX: F : 1950 ARRIVES VIA: Walk-In INFORMANT: Patient, ED PROVIDER(S): Dean De Los Santos MD CHIEF COMPLAINT: high blood pressure, headache MEDICAL DECISION MAKING: Patient's blood work reassuring. Patient with a normal white count H&H and platelet count kidney function with a creat of 1.3 not too far from the patient's baseline TSH normal. Urinalysis without evidence of obvious infection. CT head does not show obvious ICH. Patient's formal CT read pending and was delayed as there may have been issues with uploading it to [facility] outside radiology service. Patient was signed out to Dr. Nguyen pending the results of the CT but if negative patient may go home with changes of blood pressure medication. Discussion w/ other healthcare providers: Dr. Nguyen Prior /Outside records reviewed: None Differential diagnosis: Benign hypertension, hypertensive emergency, hypertensive emergency/urgency, salt intake, pheochromocytoma, electrolyte abnormality, renal disease as well as other etiologies were entertained. Diagnostics, as interpreted by me: ECG: Normal sinus rhythm, rate of 79, normal intervals, normal axis T wave version V2. No ST elevations. Cardiac monitoring: An order was placed for continuous cardiac monitoring. The monitor shows a rate of 75 with sinus rhythm. Patient was placed on pulse oximetry Medical decision rules: None Imaging studies: I informally interpreted the patient's CT head which does not show obvious ICH with formal report to follow. HPI: Patient presents due to concern for high blood pressure. The patient states that she had slight pressure headache which sometimes she has had before with associated hypertension and she checked her blood pressure today and noticed it to be elevated. Patient states that she does take metoprolol 12 point 5 in the morning and evening as well as 20 mg of lisinopril in the evening. Patient states she is compliant with her medications. Per her new territory manager general sales they did recently increase her lisinopril from 10 to 20 mg. Patient denies any increase in salt or processed foods in the diet. No alcohol tobacco or drug use patient denies any supplements or stimulants no caffeine use. Patient states that she does have some mild kidney disease and knows that sometimes this may be contributory. Patient denies any increase in anxiety. The patient did take her morning medication but has not yet taken her evening meds. Patient denies any strokelike symptoms. PAST MEDICAL HISTORY: See Below PAST SURGICAL HISTORY: See Below SOCIAL HISTORY: See Below HOME MEDICATIONS: See Below ALLERGIES: See Below VITALS: See Below PHYSICAL EXAMINATION: GENERAL: NAD, non-toxic. EYE EXAM: Normal conjunctiva. PERRL, no anisocoria and EOM's grossly intact w/o pain. OROPHARYNX: Moist mucus membranes, grossly normal dentition. NECK: Trachea midline, no stridor. Supple, no nuchal rigidity, no adenopathy, non-tender. No signs of meningismus. FROM of the neck with good chin to chest and neck extension. LUNGS: Clear to auscultation. Normal chest wall mechanics. HEART: NSR, no MRG. ABDOMEN: Abdomen soft, non-tender, no masses, no rebound or guarding. BACK: No CVA TTP. SKIN: No rashes and no bruising. UPPER EXTREMITIES: Upper extremities are grossly normal. LOWER EXTREMITIES: Grossly normal, no edema. NEURO EXAM: A&O x3, cranial nerves II-XII grossly intact, normal speech, moves all 4 extremities. Good [id number], no drift and no sensory deficits. Past Med/Surg History Problem List (Updated 11/06/24 @ 11:12 by Dean De Los Santos MD) Pressure in head (Acute) Hypertension (Acute) Mitral regurgitation MVP (mitral valve prolapse) Hypertensive crisis Hypertensive urgency (Acute) Atypical chest pain (Acute) Vaginal bleeding History of UTI CREST syndrome Medical History Elevated troponin Pneumonia Surgical History History of D&C History of laparoscopy Diagnostic History of total abdominal hysterectomy Family History Aunt Breast cancer paternal Father Lung cancer Colorectal cancer Denies family history of Ovarian cancer Prostate cancer Myocardial infarction Social History Smoking Status: Never smoker Do You Dip or Chew Tobacco: No; Hx Alcohol Use: No Hx Substance Use: No Preferred Language: Faroese Communication Ability: Effective Recreation Superintendent Required: No Beliefs That Will Affect Care: None Current Living Situation: Family Feels Safe at Home: Yes Safety Concerns: Feels Safe At This Time Assistive Devices: Glasses and Hearing Aid - Bilateral Allergies Allergies Allergy/AdvReac Type Severity Reaction Status Date / Time No Known Drug Allergies Allergy Unknown Verified 11/05/24 17:50 Home Meds Home Medications Medication Instructions Recorded Confirmed pantoprazole 40 mg tablet,delayed 40 mg PO QDL 08/02/19 11/05/24 release levothyroxine 50 mcg tablet 50 mcg PO DAILYBB 05/31/23 11/05/24 atorvastatin 10 mg tablet 10 mg PO QDL 11/05/24 11/05/24 lisinopril 20 mg tablet 20 mg PO QAM 11/05/24 11/05/24 metoprolol succinate 25 mg 12.5 mg PO AMHS 11/05/24 11/05/24 tablet,extended release 24 hr [id number] 8 mg-folic 400 1 tab PO DAILY 11/05/24 11/05/24 mcg-K 50 mcg-lutein 300 mcg tablet (Multivitamin Women 50 Plus) Previous Rx's Medication Instructions Recorded aspirin 81 mg tablet,delayed 81 mg PO QAM #30 tabs 06/04/23 release Results & Data (ED) Vital Signs Vital Signs - 24 hr 11/05/24 17:34 11/05/24 17:47 11/05/24 17:47 Temperature 36.8 C Temperature Source Temporal Artery Scan Pulse Rate 79 82 Pulse Rate [Apical] 82 Respiratory Rate 18 18 18 Respiratory Effort / Characteristics Non-Labored Spontaneous Respiratory Depth Normal Respiratory Pattern Regular Blood Pressure 220/113 H Blood Pressure [Left Arm] 219/116 H Blood Pressure Mean 148 Blood Pressure Mean [Left Arm] 150 Blood Pressure Position [Left Arm] Pulse Oximetry 93 96 96 Oxygen Delivery Method Room Air Room Air Room Air Sepsis Recent Fever Within 48 Hours No Sepsis New/Unexplained Change in Mental Status No Sepsis Action Taken by Nursing No Action Required 11/05/24 17:53 11/05/24 18:43 11/05/24 19:10 Temperature Temperature Source Pulse Rate 79 Pulse Rate [Apical] 67 58 L Respiratory Rate 16 16 Respiratory Effort / Characteristics Non-Labored Spontaneous Respiratory Depth Respiratory Pattern Blood Pressure Blood Pressure [Left Arm] 187/96 H 162/79 H Blood Pressure Mean Blood Pressure Mean [Left Arm] 126 106 Blood Pressure Position [Left Arm] Pulse Oximetry 100 98 Oxygen Delivery Method Nasal Cannula Room Air Sepsis Recent Fever Within 48 Hours Sepsis New/Unexplained Change in Mental Status Sepsis Action Taken by Nursing 11/05/24 20:25 11/05/24 21:00 11/05/24 21:45 Temperature Temperature Source Pulse Rate 79 Pulse Rate [Apical] 68 71 Respiratory Rate 18 20 Respiratory Effort / Characteristics Non-Labored Spontaneous Non-Labored Spontaneous Respiratory Depth Respiratory Pattern Blood Pressure Blood Pressure [Left Arm] 163/95 H 189/113 H Blood Pressure Mean Blood Pressure Mean [Left Arm] 117 138 Blood Pressure Position [Left Arm] Pulse Oximetry 96 99 Oxygen Delivery Method Room Air Room Air Sepsis Recent Fever Within 48 Hours Sepsis New/Unexplained Change in Mental Status Sepsis Action Taken by Nursing 11/05/24 22:23 11/05/24 23:00 11/06/24 00:00 Temperature Temperature Source Pulse Rate Pulse Rate [Apical] 68 60 66 Respiratory Rate 21 16 21 Respiratory Effort / Characteristics Non-Labored Spontaneous Non-Labored Spontaneous Non-Labored Spontaneous Respiratory Depth Respiratory Pattern Blood Pressure Blood Pressure [Left Arm] 183/108 H 122/85 165/85 H Blood Pressure Mean Blood Pressure Mean [Left Arm] 133 97 111 Blood Pressure Position [Left Arm] Pulse Oximetry 99 97 97 Oxygen Delivery Method Room Air Room Air Room Air Sepsis Recent Fever Within 48 Hours Sepsis New/Unexplained Change in Mental Status Sepsis Action Taken by Nursing 11/06/24 01:00 11/06/24 01:41 11/06/24 02:00 Temperature Temperature Source Pulse Rate 58 L Pulse Rate [Apical] 63 56 L Respiratory Rate 18 18 Respiratory Effort / Characteristics Non-Labored Spontaneous Respiratory Depth Respiratory Pattern Blood Pressure Blood Pressure [Left Arm] 164/83 H 136/72 Blood Pressure Mean Blood Pressure Mean [Left Arm] 110 93 Blood Pressure Position [Left Arm] Lying Lying Pulse Oximetry 95 95 Oxygen Delivery Method Room Air Room Air Sepsis Recent Fever Within 48 Hours Sepsis New/Unexplained Change in Mental Status Sepsis Action Taken by Intermediate Medications Current Medication List: was personally reviewed by me Laboratory Data Attestation: I reviewed the patient's lab results. 11/06/24 07:18 11/06/24 07:18 Lab Results 11/05/24 11/05/24 Range/Units 17:49 18:57 WBC 7.44 (4.8-10.8) K/ul RBC 4.57 (4.20-5.40) M/uL Hgb 14.0 (12.0-16.0) g/dl Hct 43.6 (37.0-47.0) % MCV 95.4 (80.0-100.0) fL MCH 30.6 (25.0-34.0) pg MCHC 32.1 (32.0-36.0) g/dL RDW Std Deviation 44.6 (36.4-46.3) fL RDW Coeff of Toni 12.8 (11.5-14.5) % Plt Count 144 (130-400) K/uL MPV 9.1 L (9.4-12.4) fL Immature Gran % (Auto) 0.3 % Neut % (Auto) 63.5 % Lymph % (Auto) 27.4 % Grayson % (Auto) 7.4 % Eos % (Auto) 0.9 % Baso % (Auto) 0.5 % Neut # (Auto) 4.72 (1.40-6.50) K/uL Lymph # (Auto) 2.04 (1.20-3.40) K/uL Grayson # (Auto) 0.55 (0.11-0.59) K/uL Eos # (Auto) 0.07 (0.00-0.50) K/uL Baso # (Auto) 0.04 (0.00-0.20) K/uL Immature Gran # (Auto) 0.02 (0.01-0.20) K/uL Sodium 135 L (136-145) mmol/L Potassium 4.2 (3.5-5.1) mmol/L Chloride 101 (98-107) mmol/L Carbon Dioxide 28 (21-32) mmol/L Anion Gap 6 (3-11) BUN 28 H (6-23) mg/dl Creatinine 1.30 H (0.6-1.2) mg/dl Est Cr Clr Drug Dosing 31.3 ml/min eGFR 42.88 BUN/Creatinine Ratio 21.5 H (10-20) Glucose 110 H (70-99(Fasting)) mg/dl Calcium 9.8 (8.6-10.3) mg/dl Magnesium 2.2 (1.7-2.4) mg/dl Total Bilirubin 0.7 (0.2-1.0) mg/dl AST 24 (13-39) U/L ALT 12 (7-52) U/L Alkaline Phosphatase 58 (34-104) U/L Troponin I High Sens 6.7 (0-14) pg/ml Total Protein 8.1 (6.0-8.3) gm/dl Albumin 4.6 (3.4-5.0) gm/dl Globulin 3.5 (2.5-4.0) gm/dl Albumin/Globulin Ratio 1.3 (0.9-2) TSH 3.985 (0.300-4.500) uIu/ml Urine Color Yellow Urine Appearance Clear (Clear) Urine pH 7.0 (4.5-7.5) Ur Specific [place] 1.005 (1.000-1.030) Urine Protein Negative (Negative) Urine Glucose (UA) Negative (Negative) Urine Ketones Negative (Negative) Urine Blood Negative (Negative) Urine Nitrite Negative (Negative) Urine Bilirubin Negative (Negative) Urine Urobilinogen Negative (Negative) Ur Leukocyte Esterase 1+ H (Negative) Urine WBC (Auto) 0-5 (0-5) /hpf Urine RBC (Auto) 0-2 (0-2) /hpf U Hyaline Cast (Auto) 0-2 (0-2) /lpf U Epithel Cells (Auto) 0-2 (0-2) /hpf Urine Bacteria (Auto) None Seen (None Seen) Administered Medications Aspirin (Aspirin 81 Mg Ectab) 81 mg PO [facility] Stop: 12/06/24 08:59 Last Admin: 11/06/24 08:18 Dose: 81 mg Documented By: CRYSTAL Atorvastatin Calcium (Atorvastatin 10 Mg Tab) 10 mg PO QDL [facility] Stop: 12/06/24 11:29 Last Admin: 11/06/24 08:18 Dose: 10 mg Documented By: CRYSTAL Levothyroxine Sodium (Levothyroxine Sodium 50 Mcg Tablet) 50 mcg PO DAILYBB [facility] Stop: 12/06/24 06:29 Last Admin: 11/06/24 06:31 Dose: 50 mcg Documented By: ALICIA [facility]inop[facility] ([facility] 20 Mg Tab) [facility] [place]: 12/06/24 08:59 Last Admin: 11/06/24 08:18 Dose: 20 mg Documented By: CRYSTAL Metoprolol Succinate (Metoprolol Succ 25mg Ext Rel Tab) 12.5 mg PO [facility] Stop: 12/06/24 08:59 Last Admin: 11/06/24 08:18 Dose: 12.5 mg Documented By: CRYSTAL Multivitamins/Minerals (Cerovite Adv Formula Tab) 1 tab PO DAILY [facility] Stop: 12/06/24 08:59 Last Admin: 11/06/24 08:18 Dose: 1 tab Documented By: CRYSTAL Pantoprazole Sodium (Pantoprazole 40 Mg Tab) 40 mg PO QDL [facility] Stop: 12/06/24 11:29 Last Admin: 11/06/24 08:18 Dose: 40 mg Documented By: CRYSTAL Discontinued Medications Acetaminophen (Acetaminophen 500 Mg Tab) 1,000 mg PO NOW STA Stop: 11/05/24 18:25 Last Admin: 11/05/24 23:53 Dose: Not Given Documented By: TIFFANY Gadobutrol (Gadobutrol 30ml Vial) 5 ml IV ONCE ONE Stop: 11/06/24 10:40 Last Admin: 11/06/24 10:39 Dose: 5 ml Documented By: EHSAN Magnesium Sulfate/Dextrose (Magnesium Sulfate / D5w) 1 gm in 100 mls @ 300 mls/hr IV NOW STA Stop: 11/05/24 18:43 Last Infusion: 11/05/24 19:02 Dose: Infused Documented By: Admin: 11/05/24 18:36 Dose: 300 mls/hr Documented By: CYDNEY Lorazepam (Lorazepam 0.5 Mg Tab) 0.5 mg PO NOW STA Stop: 11/06/24 09:36 Last Admin: 11/06/24 10:01 Dose: Not Given Documented By: CRYSTAL Lorazepam (Lorazepam 0.5 Mg Tab) Confirm Administered Dose 0.5 mg .ROUTE .STK- MED ONE Stop: 11/06/24 10:00 Last Admin: 11/06/24 10:01 Dose: 0.5 mg Documented By: CRYSTAL Non-Formulary Medication (Estradiol) 1 gm PV DAILY [facility] Stop: 12/06/24 08:59 Last Admin: 11/06/24 08:16 Dose: Not Given Documented By: CRYSTAL Discharge Plan Visit Data Chief Complaint: Hypertension Stated Complaint: HIGH BLOOD PRESSURE, DIZZY ED Provider: Florina Nguyen Discharge Problem: Hypertension, Pressure in head Patient Disposition: Admitted As Inpatient Discharge Instructions Interventions: ED Discharge Assessment Last Done: 11/06/24 04:28 Discharge Problem: Hypertension Qualifiers: Hypertension type: unspecified Qualified Code(s): I10 - Essential (primary) hypertension
[2024-11-05 18:05] LABS: Basophils # (auto) 0.04 K/uL (0.00-0.20); Basophils % (auto) 0.5 %; Eosinophils # (auto) 0.07 K/uL (0.00-0.50); Eosinophils % (auto) 0.9 %; Hematocrit (blood only) 43.6 % (37.0-47.0); Immature Granulocytes # (auto) 0.02 K/uL (0.01-0.20); Immature Granulocytes % (auto) 0.3 %; Lymphocytes # (auto) 2.04 K/uL (1.20-3.40); Lymphocytes % (auto) 27.4 %; Mean Corpuscular Hemoglobin 30.6 pg (25.0-34.0); Mean Corpuscular Hgb Conc 32.1 g/dL (32.0-36.0); Mean Corpuscular Volume 95.4 fL (80.0-100.0); Mean Platelet Volume 9.1 fL (9.4-12.4); Monocytes # (auto) 0.55 K/uL (0.11-0.59); Monocytes % (auto) 7.4 %; Neutrophils # (auto) 4.72 K/uL (1.40-6.50); Neutrophils % (auto) 63.5 %; Platelet Count 144 K/uL (130-400); RDW Coefficient of Variation 12.8 % (11.5-14.5); RDW Standard Deviation 44.6 fL (36.4-46.3); Red Blood Count 4.57 M/uL (4.20-5.40); White Blood Count 7.44 K/ul (4.8-10.8)
[2024-11-05 18:23] LABS: Albumin Globulin Ratio 1.3 (0.9-2); Albumin Level 4.6 gm/dl (3.4-5.0); BUN Creatinine Ratio 21.5 (10-20); Bilirubin,Total 0.7 mg/dl (0.2-1.0); Calcium 9.8 mg/dl (8.6-10.3); Creatinine Clr Calc Pharmacy 31.3 ml/min; Globulin 3.5 gm/dl (2.5-4.0); Magnesium 2.2 mg/dl (1.7-2.4); Potassium 4.2 mmol/L (3.5-5.1); Total Protein 8.1 gm/dl (6.0-8.3)
[2024-11-05 18:29] LABS: Troponin I High Sensitivity 6.7 pg/ml (0-14)
[2024-11-05] MEDS: MAGNESIUM SULFATE / D5W 1 GM/100 ML BAG IV STA (18:36)
[2024-11-05 18:38] LABS: Thyroid Stimulating Hormone 3.985 uIu/ml (0.300-4.500)
[2024-11-05 19:10] LABS: Appearance Urine Clear (Clear); Bacteria Urine Automated None Seen (None Seen); Bilirubin Urine Negative (Negative); Blood Urine Negative (Negative); Cast Urine Automated 0-2 /lpf (0-2); Color Urine Yellow; Epithelial Cell Urine Auto 0-2 /hpf (0-2); Glucose Urine UA Negative (Negative); Ketones Urine Negative (Negative); Leukocyte Esterase Urine 1+ (Negative); Nitrite Urine Negative (Negative); Protein Urine Negative (Negative); RBC Urine Automated 0-2 /hpf (0-2); Specific Gravity Urine 1.005 (1.000-1.030); Urobilinogen Urine Negative (Negative); WBC Urine Automated 0-5 /hpf (0-5)
--- NOTE | 2024-11-05 20:51 | CT Scan Report ---
EXAM: CT head/brain wo con CLINICAL HISTORY: HTN. TECHNIQUE: Axial non-contrast CT scan of the brain was performed from the skull base to the high parietal region. One of the following dose reduction techniques was utilized for this exam.Automated exposure control, adjustment of the mA and/or kV according to patient size, and use of iterative reconstruction. COMPARISON: Prior CT 05/31/2023 FINDINGS: No intracerebral hematoma or territorial infarction. There is a focal hypodense area in the deep left cerebellar hemisphere mildly abutting the 4th ventricle. ventricular system, cortical sulci and basal cisterns are prominent, consistent with senile changes. The rest of the visualized brain parenchyma shows normal appearance. Schwartz-white matter differentiation is maintained. No midline shifts or deformity. Normal CT appearance of the posterior fossa structures, namely the cerebellar hemispheres, brainstem and cerebellar peduncles. The IACs are unremarkable. The cerebello-pontine angles are clear. The osseous structures in the skull base are unremarkable. No definite calvarium fractures. The scanned paranasal sinuses are clear. IMPRESSION: 1. No acute intracranial abnormality is present. 2. Deep left cerebellar hemisphere focal hypodense area mildly abutting the 4th ventricle, probable artifactual, however other etiologies cannot entirely be ruled out. This is a new finding. Further evaluation with MR recommended. 3. Age-matched involutional brain changes. Electronically signed by Geoff Haque 11-05-2024 8:51 PM
--- NOTE | 2024-11-05 21:48 | Emergency Department Note ---
ED Visit Note Patient care received in signout from Dr. De Los Santos. Patient had elevated blood pressure with slight head pressure and headache. She notes this happened before. She had no neurologic deficits on my exam. -Pending CT imaging from Dr. De Los Santos -The CT imaging reveals a deep left cerebellar hemisphere focal hypodensity area mildly abutting the fourth ventricle. This probably artifact however other etiology cannot be entirely ruled out. As this is a new finding, MRI was recommended. -Discussed these findings with the patient and . Did offer admission versus discharge. -Plan was for admission to expedite MRI imaging as well as patient has just persistently elevated blood pressures in the 180s. -Discussed care with Dr Lai .
[2024-11-05] MEDS: ACETAMINOPHEN 500 MG TAB PO STA (23:53)
--- NOTE | 2024-11-06 03:11 | History & Physical Report ---
Date of Service November 06, 2024 Assessment & Plan (1) Hypertensive urgency: Plan: 74-year-old female with past medical history significant for hypothyroidism, hypercholesterolemia, Raynaud's disease without gangrene, paroxysmal supraventricular tachycardia, hypertension, mitral valve insufficiency, GERD, CKD stage III, senile osteoporosis, sensorineural hearing loss, history of osteoporosis:, Scleroderma limited, rosacea presents with elevated blood pressure and headache. Patient states her blood pressure is labile. Today systolic blood pressure was in 180s and she is having some mild headaches which prompted her to come to the ER. In the ER after taking her night medications blood pressures improved. Currently headache is improved. Her CAT scan of the head showed deep left cerebral hemisphere focal hypodense area possible artifactual versus other etiology. Patient is getting admitted for MRI scan and monitoring her blood pressure. Currently denies headache. No dizziness. No blurred vision. No runny nose or sore throat. No cough. No chest pain. No shortness of breath. No nausea. No abdominal pain. Normal bowel and bladder movements. Hemodynamics are okay currently. Hypertensive urgency Came with elevated blood pressure and headache Currently BP improved with her home BP meds. Headache improved. Will continue home medications and monitor for now CT head findings: Deep left cerebellar hemisphere focal hypodense area mildly abutting the 4th ventricle, probable artifactual, however other etiologies cannot entirely be ruled out. This is a new finding. Further evaluation with MR recommended. Will follow MRI head History of scleroderma/crest syndrome Seems stable per records GERD On Protonix Hypothyroidism On Synthyroid TSH okay Hyperlipidemia Statin DVT prophylaxis SCDs Disposition Med/telemetry Full code History of Present Illness Chief Complaint: Hypertensive urgency and headache Primary Care Provider: Jah Manriquez DO 74-year-old female with past medical history significant for hypothyroidism, hypercholesterolemia, Raynaud's disease without gangrene, paroxysmal supraventricular tachycardia, hypertension, mitral valve insufficiency, GERD, CKD stage III, senile osteoporosis, sensorineural hearing loss, history of osteoporosis:, Scleroderma limited, rosacea presents with elevated blood pressure and headache. Patient states her blood pressure is labile. Today systolic blood pressure was in 180s and she is having some mild headaches which prompted her to come to the ER. In the ER after taking her night medications blood pressures improved. Currently headache is improved. Her CAT scan of the head showed deep left cerebral hemisphere focal hypodense area possible artifactual versus other etiology. Patient is getting admitted for MRI scan and monitoring her blood pressure. Currently denies headache. No dizziness. No blurred vision. No runny nose or sore throat. No cough. No chest pain. No shortness of breath. No nausea. No abdominal pain. Normal bowel and bladder movements. Hemodynamics are okay currently. Past medical history. As mentioned above Past surgical history. Colonoscopy. EGD. Total abdominal hysterectomy with removal of tubes. Social history. . No smoking. No alcohol use. No drug use. Family history. Father had skin cancer lung cancer. Angioplasty. Mother had arrhythmia. Allergies Allergy/AdvReac Type Severity Reaction Status Date / Time No Known Drug Allergies Allergy Unknown Verified 11/05/24 17:50 Home Medications Medication Instructions Recorded Confirmed Type pantoprazole 40 mg tablet,delayed 40 mg PO QDL 08/02/19 11/05/24 History release levothyroxine 50 mcg tablet 50 mcg PO DAILYBB 05/31/23 11/05/24 History aspirin 81 mg tablet,delayed 81 mg PO QAM #30 tabs 06/04/23 11/05/24 Rx release estradiol 0.01% (0.1 mg/gram) 1 g vaginal DAILY #42.5 grams 07/09/23 11/05/24 Rx vaginal cream atorvastatin 10 mg tablet 10 mg PO QDL 11/05/24 11/05/24 History lisinopril 20 mg tablet 20 mg PO QAM 11/05/24 11/05/24 History metoprolol succinate 25 mg 12.5 mg PO AMHS 11/05/24 11/05/24 History tablet,extended release 24 hr [id number] 8 mg-folic 400 1 tab PO DAILY 11/05/24 11/05/24 History mcg-K 50 mcg-lutein 300 mcg tablet (Multivitamin Women 50 Plus) Past Med/Surg History Problem List (Updated 11/05/24 @ 19:47 by Dean De Los Santos MD) Pressure in head (Acute) Hypertension (Acute) Mitral regurgitation MVP (mitral valve prolapse) Hypertensive crisis Hypertensive urgency (Acute) Atypical chest pain (Acute) Vaginal bleeding History of UTI CREST syndrome Medical History Elevated troponin Pneumonia Surgical History History of D&C History of laparoscopy Diagnostic History of total abdominal hysterectomy Family History Aunt Breast cancer paternal Father Lung cancer Colorectal cancer Denies family history of Ovarian cancer Prostate cancer Myocardial infarction Social History Smoking Status: Never smoker Do You Dip or Chew Tobacco: No; Hx Alcohol Use: No Hx Substance Use: No Preferred Language: Occitan Communication Ability: Effective [employer] Insurance Agent Required: No Beliefs That Will Affect Care: None Current Living Situation: Family Feels Safe at Home: Yes Safety Concerns: Feels Safe At This Time Assistive Devices: Glasses and Hearing Aid - Bilateral Review of Systems Review of Systems: All systems reviewed & are unremarkable except as noted in HPI & below Physical Exam Physical Exam: General- Not in distress Head- atraumatic Eyes- PERRL. ENT- oropharynx clear Neck- supple, no JVD. Lungs- clear to auscultation no wheezing or crackles Heart- regular rhythm; no murmur, no gallop. Abdomen- normal bowel sounds, soft, nontender, no distension Extremities- no pretibial edema, no erythema seen Neuro- alert, oriented PERRL, no facial palsy; no dysarthria; moves extremities Results & Data Results & Data Vital Signs (Past 12 Hours) Vital Signs Temp Pulse Pulse Resp BP BP Pulse Ox 11/06/24 02:00 56 L 18 136/72 95 11/06/24 01:41 58 L 11/06/24 01:00 63 18 164/83 H 95 11/06/24 00:00 66 21 165/85 H 97 11/05/24 23:00 60 16 122/85 97 11/05/24 22:23 68 21 183/108 H 99 11/05/24 21:45 79 11/05/24 21:00 71 20 189/113 H 99 11/05/24 20:25 68 18 163/95 H 96 11/05/24 19:10 58 L 16 162/79 H 98 11/05/24 18:43 67 16 187/96 H 100 11/05/24 17:53 79 11/05/24 17:47 82 18 96 11/05/24 17:47 82 18 219/116 H 96 11/05/24 17:34 36.8 C 79 18 220/113 H 93 O2 Del Method 11/06/24 02:00 Room Air 11/06/24 01:41 11/06/24 01:00 Room Air 11/06/24 00:00 Room Air 11/05/24 23:00 Room Air 11/05/24 22:23 Room Air 11/05/24 21:45 11/05/24 21:00 Room Air 11/05/24 20:25 Room Air 11/05/24 19:10 Room Air 11/05/24 18:43 Nasal Cannula 11/05/24 17:53 11/05/24 17:47 Room Air 11/05/24 17:47 Room Air 11/05/24 17:34 Room Air Diagnostic Findings Laboratory Results WBC 7.44 K/ul (4.8-10.8) 11/05/24 17:49 RBC 4.57 M/uL (4.20-5.40) 11/05/24 17:49 Hgb 14.0 g/dl (12.0-16.0) 11/05/24 17:49 Hct 43.6 % (37.0-47.0) 11/05/24 17:49 MCV 95.4 fL (80.0-100.0) 11/05/24 17:49 MCH 30.6 pg (25.0-34.0) 11/05/24 17:49 MCHC 32.1 g/dL (32.0-36.0) 11/05/24 17:49 RDW Std Deviation 44.6 fL (36.4-46.3) 11/05/24 17:49 RDW Coeff of Toni 12.8 % (11.5-14.5) 11/05/24 17:49 Plt Count 144 K/uL (130-400) 11/05/24 17:49 MPV 9.1 fL (9.4-12.4) L 11/05/24 17:49 Immature Gran % (Auto) 0.3 % 11/05/24 17:49 Neut % (Auto) 63.5 % 11/05/24 17:49 Lymph % (Auto) 27.4 % 11/05/24 17:49 [place] % (Auto) 7.4 % 11/05/24 17:49 Eos % (Auto) 0.9 % 11/05/24 17:49 Baso % (Auto) 0.5 % 11/05/24 17:49 Neut # (Auto) 4.72 K/uL (1.40-6.50) 11/05/24 17:49 Lymph # (Auto) 2.04 K/uL (1.20-3.40) 11/05/24 17:49 [place] # (Auto) 0.55 K/uL (0.11-0.59) 11/05/24 17:49 Eos # (Auto) 0.07 K/uL (0.00-0.50) 11/05/24 17:49 Baso # (Auto) 0.04 K/uL (0.00-0.20) 11/05/24 17:49 Immature Gran # (Auto) 0.02 K/uL (0.01-0.20) 11/05/24 17:49 Sodium 135 mmol/L (136-145) L 11/05/24 17:49 Potassium 4.2 mmol/L (3.5-5.1) 11/05/24 17:49 Chloride 101 mmol/L (98-107) 11/05/24 17:49 Carbon Dioxide 28 mmol/L (21-32) 11/05/24 17:49 Anion Gap 6 (3-11) 11/05/24 17:49 BUN 28 mg/dl (6-23) H 11/05/24 17:49 Creatinine 1.30 mg/dl (0.6-1.2) H 11/05/24 17:49 Est Cr Clr Drug Dosing 31.3 ml/min 11/05/24 17:49 eGFR 42.88 11/05/24 17:49 BUN/Creatinine Ratio 21.5 (10-20) H 11/05/24 17:49 Glucose 110 mg/dl (70-99(Fasting)) H 11/05/24 17:49 Calcium 9.8 mg/dl (8.6-10.3) 11/05/24 17:49 Magnesium 2.2 mg/dl (1.7-2.4) 11/05/24 17:49 Total Bilirubin 0.7 mg/dl (0.2-1.0) 11/05/24 17:49 AST 24 U/L (13-39) 11/05/24 17:49 ALT 12 U/L (7-52) 11/05/24 17:49 Alkaline Phosphatase 58 U/L (34-104) 11/05/24 17:49 Troponin I High Sens 6.7 pg/ml (0-14) 11/05/24 17:49 Total Protein 8.1 gm/dl (6.0-8.3) 11/05/24 17:49 Albumin 4.6 gm/dl (3.4-5.0) 11/05/24 17:49 Globulin 3.5 gm/dl (2.5-4.0) 11/05/24 17:49 Albumin/Globulin Ratio 1.3 (0.9-2) 11/05/24 17:49 TSH 3.985 uIu/ml (0.300-4.500) 11/05/24 17:49 Urine Color Yellow 11/05/24 18:57 Urine Appearance Clear (Clear) 11/05/24 18:57 Urine pH 7.0 (4.5-7.5) 11/05/24 18:57 Ur Specific [place] 1.005 (1.000-1.030) 11/05/24 18:57 Urine Protein Negative (Negative) 11/05/24 18:57 Urine Glucose (UA) Negative (Negative) 11/05/24 18:57 Urine Ketones Negative (Negative) 11/05/24 18:57 Urine Blood Negative (Negative) 11/05/24 18:57 Urine Nitrite Negative (Negative) 11/05/24 18:57 Urine Bilirubin Negative (Negative) 11/05/24 18:57 Urine Urobilinogen Negative (Negative) 11/05/24 18:57 Ur Leukocyte Esterase 1+ (Negative) H 11/05/24 18:57 Urine WBC (Auto) 0-5 /hpf (0-5) 11/05/24 18:57 Urine RBC (Auto) 0-2 /hpf (0-2) 11/05/24 18:57 U Hyaline Cast (Auto) 0-2 /lpf (0-2) 11/05/24 18:57 U Epithel Cells (Auto) 0-2 /hpf (0-2) 11/05/24 18:57 Urine Bacteria (Auto) None Seen (None Seen) 11/05/24 18:[address] 11/05/24 17:51 EXAM: CT head/brain wo con CLINICAL HISTORY: HTN. TECHNIQUE: Axial non-contrast CT scan of the brain was performed from the skull base to the high parietal region. One of the following dose reduction techniques was utilized for this exam.Automated exposure control, adjustment of the mA and/or kV according to patient size, and use of iterative reconstruction. COMPARISON: Prior CT 05/31/2023 FINDINGS: No intracerebral hematoma or territorial infarction. There is a focal hypodense area in the deep left cerebellar hemisphere mildly abutting the 4th ventricle. ventricular system, cortical sulci and basal cisterns are prominent, consistent with senile changes. The rest of the visualized brain parenchyma shows normal appearance. Schwartz-white matter differentiation is maintained. No midline shifts or deformity. Normal CT appearance of the posterior fossa structures, namely the cerebellar hemispheres, brainstem and cerebellar peduncles. The IACs are unremarkable. The cerebello-pontine angles are clear. The osseous structures in the skull base are unremarkable. No definite calvarium fractures. The scanned paranasal sinuses are clear. IMPRESSION: 1. No acute intracranial abnormality is present. 2. Deep left cerebellar hemisphere focal hypodense area mildly abutting the 4th ventricle, probable artifactual, however other etiologies cannot entirely be ruled out. This is a new finding. Further evaluation with MR recommended. 3. Age-matched involutional brain changes. Electronically signed by Geoff Haque 11-05-2024 8:51 PM ECG Additional Comments: ECG normal sinus rhythm rate of 79. T wave inversions in anterior leads. QTc 387 Code Status & VTE Plan VTE Prophylaxis Plan VTE Prophylaxis will be ordered: Yes
[2024-11-06] MEDS ORDERED: NITROGLYCERIN SL 0.4 MG/TAB TAB SL PRN (05:11)
[2024-11-06] MEDS ORDERED: ACETAMINOPHEN 325 MG TAB PO PRN (05:11)
[2024-11-06] MEDS ORDERED: POLYETHYLENE (MIRALAX) 17 GM PACK PO PRN (05:11)
[2024-11-06] MEDS: LEVOTHYROXINE SODIUM 50 MCG TABLET PO SCH (06:31)
[2024-11-06 07:46] LABS: Basophils # (auto) 0.03 K/uL (0.00-0.20); Basophils % (auto) 0.5 %; Eosinophils # (auto) 0.08 K/uL (0.00-0.50); Eosinophils % (auto) 1.3 %; Hematocrit (blood only) 41.2 % (37.0-47.0); Hemoglobin 13.3 g/dl (12.0-16.0); Immature Granulocytes # (auto) 0.03 K/uL (0.01-0.20); Immature Granulocytes % (auto) 0.5 %; Lymphocytes % (auto) 23.1 %; Mean Corpuscular Hemoglobin 30.6 pg (25.0-34.0); Mean Corpuscular Hgb Conc 32.3 g/dL (32.0-36.0); Mean Corpuscular Volume 94.9 fL (80.0-100.0); Mean Platelet Volume 9.1 fL (9.4-12.4); Monocytes # (auto) 0.59 K/uL (0.11-0.59); Monocytes % (auto) 9.8 %; Neutrophils # (auto) 3.92 K/uL (1.40-6.50); Neutrophils % (auto) 64.8 %; Platelet Count 145 K/uL (130-400); RDW Coefficient of Variation 12.7 % (11.5-14.5); RDW Standard Deviation 44.1 fL (36.4-46.3); Red Blood Count 4.34 M/uL (4.20-5.40); White Blood Count 6.05 K/ul (4.8-10.8)
[2024-11-06 08:03] LABS: BUN Creatinine Ratio 16.8 (10-20); Calcium 9.2 mg/dl (8.6-10.3); Creatinine Clr Calc Pharmacy 32.7 ml/min; Magnesium 2.3 mg/dl (1.7-2.4); Potassium 4.7 mmol/L (3.5-5.1)
[2024-11-06] MEDS: NON-FORMULARY MEDICATION (Estradiol 0.01 % (0.1 mg/gram) cream) PV SCH (08:16)
[2024-11-06] MEDS: ASPIRIN 81 MG ECTAB PO SCH (08:18)
[2024-11-06] MEDS: METOPROLOL SUCC 25MG EXT REL TAB PO SCH (08:18)
[2024-11-06] MEDS: PANTOprazole 40 MG TAB PO SCH (08:18)
[2024-11-06] MEDS: CEROVITE ADV FORMULA TAB PO SCH (08:18)
[2024-11-06] MEDS: ATORVASTATIN 10 MG TAB PO SCH (08:18)
[2024-11-06] MEDS: lisinopril 20 MG TAB PO SCH (08:18)
[2024-11-06 08:24] LABS: Troponin I High Sensitivity 373.7 pg/ml (0-14)
[2024-11-06] MEDS: LORazepam 0.5 MG TAB ONE (10:01)
[2024-11-06] MEDS: LORazepam 0.5 MG TAB PO STA (10:01)
[2024-11-06] MEDS: GADOBUTROL 30ML VIAL IV ONE (10:39)
--- NOTE | 2024-11-06 11:20 | Magnetic Resonance Report ---
HISTORY: Hypodensity involving the brainstem on CT. Concern for infarct or mass. TECHNIQUE: Brain MRI Was performed prior to and following uneventful administration of gadolinium based IV contrast. COMPARISON: Multiple recent prior head CTs. The most recent on the same day. FINDINGS: The upper cervical spinal cord is unremarkable. The sella is not expanded. The cerebellar tonsils extend to the level of the foramen magnum.No areas of restricted diffusion to suggest acute infarct.Scattered areas of T2/FLAIR hyperintensity involving the periventricular and subcortical white matter are nonspecific.No areas of susceptibility artifact to suggest intracranial hemorrhage. No enhancing mass involving the brainstem. A small enhancing masses present in the right internal auditory canal, which expands the internal auditory canal and measures 0.8 x 0.6 cm on series 12 image 32. This favors a small acoustic neuroma/vestibular schwannoma. The left internal auditory canal is clear. Ventricular caliber is appropriate. The fourth ventricle is midline. The basal cisterns are patent. The globes and orbits are unremarkable. The paranasal sinuses and mastoid air cells are clear. IMPRESSION: 1. No acute intracranial findings. No evidence of brainstem infarct or enhancing mass. 2. 0.8 x 0.6 cm enhancing mass in the right internal auditory canal mildly expands the canal. 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 ENT consultation is recommended. 3. Scattered T2/FLAIR hyperintense foci involving the periventricular and subcortical white matter are nonspecific. These lesions are commonly attributed to chronic microvascular ischemic changes with other differential considerations including demyelinating disease or other infectious or inflammatory etiologies. Electronically signed by Richie Cadet 11-06-2024 11:20 AM
[2024-11-06] MEDS: HEPARIN 25000 UNIT/500 ML D5W 25,000 UNITS/500 ML BAG IV SCH (12:34)
[2024-11-06] MEDS: Heparin IV Adult Wt-Based Standard *NO* INITIAL Bolus Protocol IV STA (12:36)
--- NOTE | 2024-11-06 15:18 | Hospitalist Progress Note ---
Date of Service November 06, 2024 Assessment & Plan (1) Hypertensive urgency: Plan: 74-year-old female with past medical history significant for hypothyroidism, hypercholesterolemia, Raynaud's disease without gangrene, paroxysmal supraventricular tachycardia, hypertension, mitral valve insufficiency, GERD, CKD stage III, senile osteoporosis, sensorineural hearing loss, history of osteoporosis:, Scleroderma limited, rosacea presents with elevated blood pressure and headache. Patient states her blood pressure is labile. Today systolic blood pressure was in 180s and she is having some mild headaches which prompted her to come to the ER. In the ER after taking her night medications blood pressures improved. Currently headache is improved. Her CAT scan of the head showed deep left cerebral hemisphere focal hypodense area possible artifactual versus other etiology. Patient is getting admitted for MRI scan and monitoring her blood pressure. Currently denies headache. No dizziness. No blurred vision. No runny nose or sore throat. No cough. No chest pain. No shortness of breath. No nausea. No abdominal pain. Normal bowel and bladder movements. Hemodynamics are okay currently. Hypertensive urgency Came with elevated blood pressure and headache Currently BP improved with her home BP meds. Headache improved. Will continue home medications and monitor for now NSTEMI - AM troponin elevated in 300s, repeat troponin in 600s - Echo - EF 60-65% - + MR - mild hypokinesis of the posterior wall at the base with otherwise normal wall motion - cardiology consulted and discussed with - starting IV heparin CT head findings: Deep left cerebellar hemisphere focal hypodense area mildly abutting the 4th ventricle, probable artifactual, however other etiologies cannot entirely be ruled out. This is a new finding. Further evaluation with MR recommended. MRI head - 1. No acute intracranial findings. No evidence of brainstem infarct or enhancing mass. 2. 0.8 x 0.6 cm enhancing mass in the right internal auditory canal mildly expands the canal. 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 ENT consultation is recommended. 3. Scattered T2/FLAIR hyperintense foci involving the periventricular and subcortical white matter are nonspecific. These lesions are commonly attributed to chronic microvascular ischemic changes with other differential considerations including demyelinating disease or other infectious or inflammatory etiologies. - outpt ENT follow up History of scleroderma/crest syndrome Seems stable per records GERD On Protonix Hypothyroidism On Synthyroid TSH 3.8 wnl Hyperlipidemia Statin DVT prophylaxis - iv heparin Disposition Med/telemetry Full code Admission and Anticipated Discharge Date Admission Date: November 06, 2024 Subjective Pt seen in follow up of hypertensive urgency, presented with MERAZ and elevated BP Currently lying in bed in NAD denies CP or shortness of breath, but says she had some chest discomfort yesterday but it was not as severe as when she was in the hospital last time Troponin this AM elevated -> repeated troponin and discussed w/ cardiology - starting iv heparin no fever, chills, abd. pain, n/v Review of Systems Review of Systems: All systems reviewed & are unremarkable except as noted in Subjective Physical Exam Physical Exam: General- slim elderly F in NAD Head- atraumatic Eyes- PERRL. Neck- supple, no JVD. Lungs- clear to auscultation no wheezing or crackles Heart- regular rhythm, + syst. murmur Abdomen- normal bowel sounds, soft, nontender, no distension Extremities- no pretibial edema, no erythema seen Neuro- alert, oriented PERRL, no facial palsy; no dysarthria; moves extremities Results & Data Results & Data Vital Signs (Past 12 Hours) Vital Signs Temp Pulse Pulse Resp BP BP Pulse Ox 11/06/24 13:00 71 11/06/24 11:35 36.8 C 59 L 16 147/77 H 98 11/06/24 07:40 36.6 C 61 18 158/80 H 98 11/06/24 07:36 11/06/24 05:56 56 L 11/06/24 05:13 36.6 C 69 16 155/88 H 97 11/06/24 05:05 76 11/06/24 04:28 36.6 C 54 L 16 155/78 H 95 11/06/24 04:00 57 L 16 130/70 95 O2 Del Method 11/06/24 13:00 11/06/24 11:35 Room Air 11/06/24 07:40 Room Air 11/06/24 07:36 Room Air 11/06/24 05:56 11/06/24 05:13 Room Air 11/06/24 05:05 11/06/24 04:28 Room Air 11/06/24 04:00 Room Air Laboratory Results 11/06/24 11/06/24 11/05/24 Range/Units 11:15 07:18 18:57 WBC 6.05 (4.8-10.8) K/ul RBC 4.34 (4.20-5.40) M/uL Hgb 13.3 (12.0-16.0) g/dl Hct 41.2 (37.0-47.0) % MCV 94.9 (80.0-100.0) fL MCH 30.6 (25.0-34.0) pg MCHC 32.3 (32.0-36.0) g/dL RDW Std Deviation 44.1 (36.4-46.3) fL RDW Coeff of Toni 12.7 (11.5-14.5) % Plt Count 145 (130-400) K/uL MPV 9.1 L (9.4-12.4) fL Immature Gran % (Auto) 0.5 % Neut % (Auto) 64.8 % Lymph % (Auto) 23.1 % [place] % (Auto) 9.8 % Eos % (Auto) 1.3 % Baso % (Auto) 0.5 % Neut # (Auto) 3.92 (1.40-6.50) K/uL Lymph # (Auto) 1.40 (1.20-3.40) K/uL [place] # (Auto) 0.59 (0.11-0.59) K/uL Eos # (Auto) 0.08 (0.00-0.50) K/uL Baso # (Auto) 0.03 (0.00-0.20) K/uL Immature Gran # (Auto) 0.03 (0.01-0.20) K/uL Sodium 139 (136-145) mmol/L Potassium 4.7 (3.5-5.1) mmol/L Chloride 106 (98-107) mmol/L Carbon Dioxide 30 (21-32) mmol/L Anion Gap 3 (3-11) BUN 20 (6-23) mg/dl Creatinine 1.19 (0.6-1.2) mg/dl Est Cr Clr Drug Dosing 32.7 ml/min eGFR 47.68 BUN/Creatinine Ratio 16.8 (10-20) Glucose 90 (70-99(Fasting)) mg/dl Calcium 9.2 (8.6-10.3) mg/dl Magnesium 2.3 (1.7-2.4) mg/dl Total Bilirubin (0.2-1.0) mg/dl AST (13-39) U/L ALT (7-52) U/L Alkaline Phosphatase (34-104) U/L Troponin I High Sens 613.0 H* D 373.7 H* D (0-14) pg/ml Total Protein (6.0-8.3) gm/dl Albumin (3.4-5.0) gm/dl Globulin (2.5-4.0) gm/dl Albumin/Globulin Ratio (0.9-2) TSH (0.300-4.500) uIu/ml Urine Color Yellow Urine Appearance Clear (Clear) Urine pH 7.0 (4.5-7.5) Ur Specific [place] 1.005 (1.000-1.030) Urine Protein Negative (Negative) Urine Glucose (UA) Negative (Negative) Urine Ketones Negative (Negative) Urine Blood Negative (Negative) Urine Nitrite Negative (Negative) Urine Bilirubin Negative (Negative) Urine Urobilinogen Negative (Negative) Ur Leukocyte Esterase 1+ H (Negative) Urine WBC (Auto) 0-5 (0-5) /hpf Urine RBC (Auto) 0-2 (0-2) /hpf U Hyaline Cast (Auto) 0-2 (0-2) /lpf U Epithel Cells (Auto) 0-2 (0-2) /hpf Urine Bacteria (Auto) None Seen (None Seen) 11/05/24 Range/Units 17:49 WBC 7.44 (4.8-10.8) K/ul RBC 4.57 (4.20-5.40) M/uL Hgb 14.0 (12.0-16.0) g/dl Hct 43.6 (37.0-47.0) % MCV 95.4 (80.0-100.0) fL MCH 30.6 (25.0-34.0) pg MCHC 32.1 (32.0-36.0) g/dL RDW Std Deviation 44.6 (36.4-46.3) fL RDW Coeff of Toni 12.8 (11.5-14.5) % Plt Count 144 (130-400) K/uL MPV 9.1 L (9.4-12.4) fL Immature Gran % (Auto) 0.3 % Neut % (Auto) 63.5 % Lymph % (Auto) 27.4 % [place] % (Auto) 7.4 % Eos % (Auto) 0.9 % Baso % (Auto) 0.5 % Neut # (Auto) 4.72 (1.40-6.50) K/uL Lymph # (Auto) 2.04 (1.20-3.40) K/uL [place] # (Auto) 0.55 (0.11-0.59) K/uL Eos # (Auto) 0.07 (0.00-0.50) K/uL Baso # (Auto) 0.04 (0.00-0.20) K/uL Immature Gran # (Auto) 0.02 (0.01-0.20) K/uL Sodium 135 L (136-145) mmol/L Potassium 4.2 (3.5-5.1) mmol/L Chloride 101 (98-107) mmol/L Carbon Dioxide 28 (21-32) mmol/L Anion Gap 6 (3-11) BUN 28 H (6-23) mg/dl Creatinine 1.30 H (0.6-1.2) mg/dl Est Cr Clr Drug Dosing 31.3 ml/min eGFR 42.88 BUN/Creatinine Ratio 21.5 H (10-20) Glucose 110 H (70-99(Fasting)) mg/dl Calcium 9.8 (8.6-10.3) mg/dl Magnesium 2.2 (1.7-2.4) mg/dl Total Bilirubin 0.7 (0.2-1.0) mg/dl AST 24 (13-39) U/L ALT 12 (7-52) U/L Alkaline Phosphatase 58 (34-104) U/L Troponin I High Sens 6.7 (0-14) pg/ml Total Protein 8.1 (6.0-8.3) gm/dl Albumin 4.6 (3.4-5.0) gm/dl Globulin 3.5 (2.5-4.0) gm/dl Albumin/Globulin Ratio 1.3 (0.9-2) TSH 3.985 (0.300-4.500) uIu/ml Urine Color Urine Appearance (Clear) Urine pH (4.5-7.5) Ur Specific [place] (1.000-1.030) Urine Protein (Negative) Urine Glucose (UA) (Negative) Urine Ketones (Negative) Urine Blood (Negative) Urine Nitrite (Negative) Urine Bilirubin (Negative) Urine Urobilinogen (Negative) Ur Leukocyte Esterase (Negative) Urine WBC (Auto) (0-5) /hpf Urine RBC (Auto) (0-2) /hpf U Hyaline Cast (Auto) (0-2) /lpf U Epithel Cells (Auto) (0-2) /hpf Urine Bacteria (Auto) (None Seen) Medications Administered Current Inpatient Medications Acetaminophen (Acetaminophen 325 Mg Tab) 650 mg PO Q4H PRN PRN Reason: Pain or Fever Stop: 12/06/24 05:10 Aspirin (Aspirin 81 Mg Ectab) 81 mg PO QAM [facility] Stop: 12/06/24 08:59 Last Admin: 11/06/24 08:18 Dose: 81 mg Atorvastatin Calcium (Atorvastatin 10 Mg Tab) 10 mg PO QDL [facility] Stop: 12/06/24 11:29 Last Admin: 11/06/24 08:18 Dose: 10 mg Heparin Sodium/Dextrose (Heparin 21049 Unit/500 Ml D5w) 25,000 units in 500 mls @ 18 mls/hr IV .Q24H [facility]; Protocol Stop: 12/06/24 12:29 Last Admin: 11/06/24 12:34 Dose: 900 units/hr, 18 mls/hr Levothyroxine Sodium (Levothyroxine Sodium 50 Mcg Tablet) 50 mcg PO DAILYBB [facility] Stop: 12/06/24 06:29 Last Admin: 11/06/24 06:31 Dose: 50 mcg Lisinopril (Lisinopril 20 Mg Tab) 20 mg PO QAM [facility] Stop: 12/06/24 08:59 Last Admin: 11/06/24 08:18 Dose: 20 mg Metoprolol Succinate (Metoprolol Succ 25mg Ext Rel Tab) 12.5 mg PO AMHS [facility] Stop: 12/06/24 08:59 Last Admin: 11/06/24 08:18 Dose: 12.5 mg Multivitamins/Minerals (Cerovite Adv Formula Tab) 1 tab PO DAILY [facility] Stop: 12/06/24 08:59 Last Admin: 11/06/24 08:18 Dose: 1 tab Nitroglycerin (Nitroglycerin Sl 0.4 Mg/Tab Tab) 0.4 mg SL Q5M PRN PRN Reason: Chest Pain Stop: 12/06/24 05:10 Pantoprazole Sodium (Pantoprazole 40 Mg Tab) 40 mg PO QDL [facility] Stop: 12/06/24 11:29 Last Admin: 11/06/24 08:18 Dose: 40 mg Polyethylene Glycol (Polyethylene (Miralax) 17 Gm Pack) 17 gm PO DAILY PRN PRN Reason: Constipation Stop: 12/06/24 05:10
[2024-11-06 19:27] LABS: ANTI-Xa, UFH(UnfractionatedHep 0.45 IU/ml (0.3-0.7)
[2024-11-07 04:18] LABS: Hematocrit (blood only) 39.5 % (37.0-47.0); Hemoglobin 12.8 g/dl (12.0-16.0); Mean Corpuscular Hemoglobin 30.9 pg (25.0-34.0); Mean Corpuscular Hgb Conc 32.4 g/dL (32.0-36.0); Mean Corpuscular Volume 95.4 fL (80.0-100.0); Mean Platelet Volume 8.9 fL (9.4-12.4); Platelet Count 142 K/uL (130-400); RDW Coefficient of Variation 12.7 % (11.5-14.5); RDW Standard Deviation 44.6 fL (36.4-46.3); Red Blood Count 4.14 M/uL (4.20-5.40); White Blood Count 6.24 K/ul (4.8-10.8)
[2024-11-07 04:27] LABS: BUN Creatinine Ratio 17.4 (10-20); Calcium 8.5 mg/dl (8.6-10.3); Creatinine Clr Calc Pharmacy 25.1 ml/min; Magnesium 2.2 mg/dl (1.7-2.4); Phosphorus 2.9 mg/dl (2.5-4.9); Potassium 4.4 mmol/L (3.5-5.1)
[2024-11-07 04:41] LABS: ANTI-Xa, UFH(UnfractionatedHep 0.68 IU/ml (0.3-0.7)
[2024-11-07 04:48] LABS: Troponin I High Sensitivity 213.1 pg/ml (0-14)
--- NOTE | 2024-11-07 09:02 | Hospitalist Progress Note ---
Date of Service November 07, 2024 Assessment & Plan (1) Hypertensive urgency: Plan: 74-year-old female with past medical history significant for hypothyroidism, hypercholesterolemia, Raynaud's disease without gangrene, paroxysmal supraventricular tachycardia, hypertension, mitral valve insufficiency, GERD, CKD stage III, senile osteoporosis, sensorineural hearing loss, history of osteoporosis:, Scleroderma limited, rosacea presents with elevated blood pressure and headache. Patient states her blood pressure is labile. Today systolic blood pressure was in 180s and she is having some mild headaches which prompted her to come to the ER. In the ER after taking her night medications blood pressures improved. Currently headache is improved. Her CAT scan of the head showed deep left cerebral hemisphere focal hypodense area possible artifactual versus other etiology. Patient is getting admitted for MRI scan and monitoring her blood pressure. Currently denies headache. No dizziness. No blurred vision. No runny nose or sore throat. No cough. No chest pain. No shortness of breath. No nausea. No abdominal pain. Normal bowel and bladder movements. Hemodynamics are okay currently. Hypertensive urgency, Elevated troponin, Poss. NSTEMI Came with elevated blood pressure and headache Currently BP improved Headache improved. Adding amlodipine 2.5, for now holding lisinopril as Cr up today, will repeat BMP tmrw - AM troponin elevated in 300s, repeat troponin in 600s - Echo - EF 60-65% - + MR - mild hypokinesis of the posterior wall at the base with otherwise normal wall motion - cardiology consulted and discussed with - started IV heparin, plan to continue for [address] head findings: Deep left cerebellar hemisphere focal hypodense area mildly abutting the 4th ventricle, probable artifactual, however other etiologies cannot entirely be ruled out. This is a new finding. Further evaluation with MR recommended. MRI head - 1. No acute intracranial findings. No evidence of brainstem infarct or enhancing mass. 2. 0.8 x 0.6 cm enhancing mass in the right internal auditory canal mildly expands the canal. 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 ENT consultation is recommended. 3. Scattered T2/FLAIR hyperintense foci involving the periventricular and subcortical white matter are nonspecific. These lesions are commonly attributed to chronic microvascular ischemic changes with other differential considerations including demyelinating disease or other infectious or inflammatory etiologies. - discussed w/ pt - she is aware , already follows w/ ENT - outpt ENT follow up History of scleroderma/crest syndrome Seems stable per records GERD On Protonix Hypothyroidism On Synthyroid TSH 3.8 wnl Hyperlipidemia Statin DVT prophylaxis - iv heparin Disposition Med/telemetry Full code Admission and Anticipated Discharge Date Admission Date: November 06, 2024 Subjective Pt seen in follow up of hypertensive urgency, presented with MERAZ and elevated BP Currently lying in bed in NAD denies CP or shortness of breath, but says she had some chest discomfort prior to admission but it was not as severe as when she was in the hospital last time Troponin found elevated yesterday and pt was started on iv heparin, cardiology consulted no fever, chills, abd. pain, n/v Overall feels well today, no abd. pain, n/v Review of Systems Review of Systems: All systems reviewed & are unremarkable except as noted in Subjective Physical Exam Physical Exam: General- slim elderly F in NAD Head- atraumatic Eyes- PERRL. Neck- supple, no JVD. Lungs- clear to auscultation no wheezing or crackles Heart- regular rhythm, + syst. murmur Abdomen- normal bowel sounds, soft, nontender, no distension Extremities- no pretibial edema, no erythema seen Neuro- alert, oriented PERRL, no facial palsy; no dysarthria; moves extremities Results & Data Results & Data Vital Signs (Past 12 Hours) Vital Signs Temp Pulse Pulse Pulse Resp BP Pulse Ox 11/07/24 07:52 36.3 C L 81 16 136/72 92 11/07/24 07:00 56 L 11/07/24 04:20 36.3 C L 57 L 16 131/68 98 11/07/24 00:18 36.6 C 57 L 16 118/66 97 11/06/24 22:00 63 O2 Del Method 11/07/24 07:52 Room Air 11/07/24 07:00 11/07/24 04:20 Room Air 11/07/24 00:18 Room Air 11/06/24 22:00 Laboratory Results 11/07/24 11/06/24 11/06/24 Range/Units 03:59 18:41 11:15 WBC 6.24 (4.8-10.8) K/ul RBC 4.14 L (4.20-5.40) M/uL Hgb 12.8 (12.0-16.0) g/dl Hct 39.5 (37.0-47.0) % MCV 95.4 (80.0-100.0) fL MCH 30.9 (25.0-34.0) pg MCHC 32.4 (32.0-36.0) g/dL RDW Std Deviation 44.6 (36.4-46.3) fL RDW Coeff of Toni 12.7 (11.5-14.5) % Plt Count 142 (130-400) K/uL MPV 8.9 L (9.4-12.4) fL Heparin Anti-Xa, Unfract 0.68 0.45 (0.3-0.7) IU/ml Sodium 135 L (136-145) mmol/L Potassium 4.4 (3.5-5.1) mmol/L Chloride 106 (98-107) mmol/L Carbon Dioxide 26 (21-32) mmol/L Anion Gap 3 (3-11) BUN 27 H (6-23) mg/dl Creatinine 1.55 H D (0.6-1.2) mg/dl Est Cr Clr Drug Dosing 25.1 ml/min eGFR 34.72 BUN/Creatinine Ratio 17.4 (10-20) Glucose 106 H (70-99(Fasting)) mg/dl Calcium 8.5 L (8.6-10.3) mg/dl Phosphorus 2.9 (2.5-4.9) mg/dl Magnesium 2.2 (1.7-2.4) mg/dl Troponin I High Sens 213.1 H* D 483.2 H* D 613.0 H* D (0-14) pg/ml Medications Administered Current Inpatient Medications Acetaminophen (Acetaminophen 325 Mg Tab) 650 mg PO Q4H PRN PRN Reason: Pain or Fever Stop: 12/06/24 05:10 Aspirin (Aspirin 81 Mg Ectab) 81 mg PO QAM [facility] Stop: 12/06/24 08:59 Last Admin: 11/07/24 07:39 Dose: 81 mg Atorvastatin Calcium (Atorvastatin 10 Mg Tab) 10 mg PO QDL [facility] Stop: 12/06/24 11:29 Last Admin: 11/07/24 07:38 Dose: 10 mg Heparin Sodium/Dextrose (Heparin 82617 Unit/500 Ml D5w) 25,000 units in 500 mls @ 18 mls/hr IV .Q24H [facility]; Protocol Stop: 12/06/24 12:29 Last Titration: 11/06/24 19:18 Dose: 900 units/hr, 18 mls/hr Levothyroxine Sodium (Levothyroxine Sodium 50 Mcg Tablet) 50 mcg PO DAILYBB [facility] Stop: 12/06/24 06:29 Last Admin: 11/07/24 05:39 Dose: 50 mcg Lisinopril (Lisinopril 20 Mg Tab) 20 mg PO QAM [facility] Stop: 12/06/24 08:59 Last Admin: 11/07/24 07:39 Dose: 20 mg Metoprolol Succinate (Metoprolol Succ 25mg Ext Rel Tab) 12.5 mg PO AMHS [facility] Stop: 12/06/24 08:59 Last Admin: 11/07/24 07:39 Dose: 12.5 mg Multivitamins/Minerals (Cerovite Adv Formula Tab) 1 tab PO DAILY [facility] Stop: 12/06/24 08:59 Last Admin: 11/07/24 07:40 Dose: 1 tab Nitroglycerin (Nitroglycerin Sl 0.4 Mg/Tab Tab) 0.4 mg SL Q5M PRN PRN Reason: Chest Pain Stop: 12/06/24 05:10 Pantoprazole Sodium (Pantoprazole 40 Mg Tab) 40 mg PO QDL [facility] Stop: 12/06/24 11:29 Last Admin: 11/07/24 07:38 Dose: Not Given Polyethylene Glycol (Polyethylene (Miralax) 17 Gm Pack) 17 gm PO DAILY PRN PRN Reason: Constipation Stop: 12/06/24 05:10
--- NOTE | 2024-11-07 09:43 | Cardiology Consultation ---
Date of Consultation November 07, 2024 Assessment & Plan (1) Hypertensive urgency: (2) Elevated troponin I level: (3) Acute on chronic renal insufficiency: (4) CREST syndrome: Plan 74-year-old female presenting with hypertensive urgency and headache. Elevated high-sensitivity troponin noted similar to prior hospitalization May 2023. 2D echocardiogram with a mild basal posterior wall hypokinesis, otherwise normal wall motion. Patient without anginal symptoms or ischemic ECG changes. Prior cardiac catheterization films reviewed demonstrating essentially normal coronary arteries. Elevated troponin possibly secondary to hypertensive urgency, coronary vasospasm spasm, stress-induced (atypical Takotsubo), vs acute coronary syndrome. Agree with continuing IV heparin for 48 hours. Discussed invasive versus noninvasive strategy with patient and family at bedside. Currently, patient prefers to avoid repeat cardiac catheterization if possible. Additionally, recommend avoiding IV contrast today with elevated creatinine. Encourage oral hydration. Repeat basic metabolic panel in AM and hold lisinopril. In regard to uncontrolled hypertension, Raynaud's phenomenon, and possible coronary vasospasm, recommend addition of low-dose amlodipine, 2.5 mg daily. Consider restarting lisinopril tomorrow pending review of a.m. labs. Continue low-dose aspirin and statin therapy as ordered. All questions answered to satisfaction both the patient and family at bedside. I spent a total of 65 minutes on the date of service in preparation, delivery, and documentation of the care provided to this patient, excluding any time spent in the performance of separately billed services. History of Present Illness Reason for Consultation: Elevated troponin, hypertensive urgency Requesting Physician: Dr. Rowley Attending Physician: Dameon Rowley MD History of Present Illness 74-year-old female with history of scleroderma, Raynaud's disease without gangrene, PSVT, mild nonobstructive CVD, CKD, and hypertension presented to the emergency department secondary to mild headache and elevated systolic blood pressure in the 180mmHg 11/05/2024. CT of the head was performed showing possible cerebral hemisphere focal hypodense area. Due to this finding she was admitted to expedite MRI and for further blood pressure monitoring/treatment Denies chest discomfort on admission. Reports occasional "chest twinges" associated with stress/anxiety. present at bedside, reports patient was significantly stressed, anxious, and tremulous prior to admission. Exercising 3 days/week at the [employer] on both treadmill and elliptical applications trainer. Exercise/activ ity limited by chronic hip flexor discomfort. Denies exertional chest discomfort or unusual shortness of breath. Functional capacity/exercise tolerance stable over the past few months. ECG without ischemic changes. Cardiac catheterization performed May 2023 due to similarly elevated troponin. Angiography revealing mild nonobstructive CAD. Currently, patient resting comfortably. IV heparin infusing. Denies chest discomfort or shortness of breath at rest. Telemetry reveals sinus rhythm without dysrhythmia. Blood pressure labile throughout admission. Creatinine elevated today up to 1.55. Patient reports taking 30 mg of oral lisinopril daily and metoprolol 12.5 mg twice daily as an outpatient. Previously treated with amlodipine, however, low a.m. blood pressures noted. Denies lightheadedness, dizziness, syncope, or near syncope. Allergies Allergy/AdvReac Type Severity Reaction Status Date / Time No Known Drug Allergies Allergy Unknown Verified 11/05/24 17:50 Home Medications Medication Instructions Recorded Confirmed Type pantoprazole 40 mg tablet,delayed 40 mg PO QDL 08/02/19 11/05/24 History release levothyroxine 50 mcg tablet 50 mcg PO DAILYBB 05/31/23 11/05/24 History aspirin 81 mg tablet,delayed 81 mg PO QAM #30 tabs 06/04/23 11/05/24 Rx release atorvastatin 10 mg tablet 10 mg PO QDL 11/05/24 11/05/24 History lisinopril 20 mg tablet 20 mg PO QAM 11/05/24 11/05/24 History metoprolol succinate 25 mg 12.5 mg PO AMHS 11/05/24 11/05/24 History tablet,extended release 24 hr [id number] 8 mg-folic 400 1 tab PO DAILY 11/05/24 11/05/24 History mcg-K 50 mcg-lutein 300 mcg tablet (Multivitamin Women 50 Plus) Patient History Medical History Elevated troponin Pneumonia Surgical History History of D&C History of laparoscopy Diagnostic History of total abdominal hysterectomy Family History Aunt Breast cancer paternal Father Lung cancer Colorectal cancer Denies family history of Ovarian cancer Prostate cancer Myocardial infarction Social History Smoking Status: Never smoker Do You Dip or Chew Tobacco: No; Hx Alcohol Use: No Hx Substance Use: No Preferred Language: Ecuadorean Communication Ability: Effective Jewelry Facer Required: No Beliefs That Will Affect Care: None Current Living Situation: Family Feels Safe at Home: Yes Safety Concerns: Feels Safe At This Time Assistive Devices: Glasses and Hearing Aid - Bilateral Review of Systems Review of Systems: All systems reviewed & are unremarkable except as noted in Subjective Physical Exam Constitutional: well nourished; no acute distress Respiratory: no respiratory distress, no labored breathing and no retractions Auscultation: no crackles, no rales, no rhonchi and no wheezes Cardiovascular: Rate/Rhythm: regular rate and regular rhythm Heart Sounds: normal S1 and normal S2; no murmur Vessels: femoral pulses present; + radial pulses abnormal (Absent right radial pulse) Extremities: no edema Gastrointestinal (Abdomen): Inspection/Auscultation: abdomen normal to inspection and normal bowel sounds; abdomen not distended Percussion/Palpation: abdomen soft; abdomen nontender, no guarding and abdomen not rigid Neurologic: CN's II-XI intact bilaterally and moves all extremities; no focal motor deficits Results & Data Vital Signs (Past 12 Hours) Vital Signs Temp Pulse Pulse Pulse Resp BP Pulse Ox 11/07/24 07:52 36.3 C L 81 16 136/72 92 11/07/24 07:00 56 L 11/07/24 04:20 36.3 C L 57 L 16 131/68 98 11/07/24 00:18 36.6 C 57 L 16 118/66 97 11/06/24 22:00 63 O2 Del Method 11/07/24 07:52 Room Air 11/07/24 07:00 11/07/24 04:20 Room Air 11/07/24 00:18 Room Air 11/06/24 22:00 Laboratory Results Cardiac Enzymes 11/06/24 11/06/24 11/07/24 Range/Units 11:15 18:41 03:59 Troponin I High Sens 613.0 H* D 483.2 H* D 213.1 H* D (0-14) pg/ml CBC 11/07/24 Range/Units 03:59 WBC 6.24 (4.8-10.8) K/ul RBC 4.14 L (4.20-5.40) M/uL Hgb 12.8 (12.0-16.0) g/dl Hct 39.5 (37.0-47.0) % Plt Count 142 (130-400) K/uL Comprehensive Metabolic Panel 11/07/24 Range/Units 03:59 Sodium 135 L (136-145) mmol/L Potassium 4.4 (3.5-5.1) mmol/L Chloride 106 (98-107) mmol/L Carbon Dioxide 26 (21-32) mmol/L BUN 27 H (6-23) mg/dl Creatinine 1.55 H D (0.6-1.2) mg/dl Glucose 106 H (70-99(Fasting)) mg/dl Calcium 8.5 L (8.6-10.3) mg/dl Intake and Output 11/06/24 11/07/24 11/07/24 22:59 06:59 14:59 Intake Total 321.2 / 1221.2 0 / 1221.2 120 / 120 Output Total 0 / 0 Balance 321.2 / 1221.2 0 / 1221.2 120 / 120 Intake: IV 121.2 / 121.2 Heparin 83589 Unit/500 ml D5w 121.2 / 121.2 25,000 units In 500 ml @ 900 UNITS/HR 18 mls/hr IV .Q24H [facility] Rx#:[id number] Oral 200 / 1100 0 / 1100 120 / 120 Output: # Bowel Movements 0 / 0 Other: # Unmeasured Voids 1 Weight 52.8 kg
[2024-11-07] MEDS: amLODIPine BESYLATE 5 MG TAB PO SCH (13:51)
--- NOTE | 2024-11-07 14:38 | Electrocardiogram Report ---
Test Reason : Blood Pressure : */* mmHG Vent. Rate : 79 BPM Atrial Rate : 79 BPM P-R Int : 128 ms QRS Dur : 72 ms QT Int : 338 ms P-R-T Axes : 57 45 63 degrees QTcB Int : 387 ms Normal sinus rhythm Abnormal ECG When compared with ECG of 02-Jun-2023 04:40, Vent. rate has increased by 26 bpm T wave inversion now evident in Anterior leads QT has shortened Confirmed by Andres Kearney ([id number]) on 11/07/2024 4:40:52 PM Referred By: REFERRED SELF Confirmed By: Andres Kearney
--- NOTE | 2024-11-07 14:46 | Electrocardiogram Report ---
Test Reason : Blood Pressure : */* mmHG Vent. Rate : 61 BPM Atrial Rate : 61 BPM P-R Int : 126 ms QRS Dur : 68 ms QT Int : 442 ms P-R-T Axes : 62 -46 6 degrees QTcB Int : 444 ms Poor data quality, interpretation may be adversely affected Normal sinus rhythm Left axis deviation Abnormal ECG When compared with ECG of 06-Nov-2024 06:08, (unconfirmed) QRS axis Shifted left Confirmed by Andres Kearney ([id number]) on 11/07/2024 2:46:31 PM Referred By: REFERRED SELF Confirmed By: Andres Kearney
--- NOTE | 2024-11-07 15:04 | Electrocardiogram Report ---
Test Reason : Blood Pressure : */* mmHG Vent. Rate : 60 BPM Atrial Rate : 60 BPM P-R Int : 126 ms QRS Dur : 86 ms QT Int : 458 ms P-R-T Axes : 46 -13 29 degrees QTcB Int : 458 ms Normal sinus rhythm Normal ECG When compared with ECG of 05-Nov-2024 17:47, (unconfirmed) QT has lengthened Confirmed by Andres Kearney ([id number]) on 11/07/2024 2:38:11 PM Also confirmed by Andres Kearney ([id number]), advertising editor Fernando Bray ([id number]) on 11/07/2024 3:04:16 PM Referred By: REFERRED SELF Confirmed By: Andres Kearney
[2024-11-08 06:39] LABS: Hematocrit (blood only) 40.4 % (37.0-47.0); Hemoglobin 13.3 g/dl (12.0-16.0); Mean Corpuscular Hemoglobin 31.2 pg (25.0-34.0); Mean Corpuscular Hgb Conc 32.9 g/dL (32.0-36.0); Mean Corpuscular Volume 94.8 fL (80.0-100.0); Mean Platelet Volume 8.8 fL (9.4-12.4); Platelet Count 144 K/uL (130-400); RDW Coefficient of Variation 12.8 % (11.5-14.5); RDW Standard Deviation 44.2 fL (36.4-46.3); Red Blood Count 4.26 M/uL (4.20-5.40); White Blood Count 5.37 K/ul (4.8-10.8)
[2024-11-08 07:05] LABS: BUN Creatinine Ratio 19.3 (10-20); Calcium 8.8 mg/dl (8.6-10.3); Creatinine Clr Calc Pharmacy 29.6 ml/min; Magnesium 2.2 mg/dl (1.7-2.4); Potassium 4.4 mmol/L (3.5-5.1)
[2024-11-08 07:43] LABS: ANTI-Xa, UFH(UnfractionatedHep 0.81 IU/ml (0.3-0.7)
[2024-11-08 07:57] VITALS: TEMP 97.3
[2024-11-08 11:16] VITALS: BP 124/73; RESP 18; O2SAT 99
--- NOTE | 2024-11-08 11:41 | Cardiology Progress Note ---
Date of Service November 08, 2024 Assessment & Plan (1) Hypertensive urgency: (2) Elevated troponin I level: (3) Acute on chronic renal insufficiency: (4) CREST syndrome: Plan 74-year-old female presenting with hypertensive urgency and headache. Elevated high-sensitivity troponin noted similar to prior hospitalization May 2023. 2D echocardiogram with a mild basal posterior wall hypokinesis, otherwise normal wall motion. Patient without anginal symptoms or ischemic ECG changes. Prior cardiac catheterization films reviewed demonstrating essentially normal coronary arteries 05/2023. Patient remains pain-free since admission. Completed 48 hours of intravenous heparin. No ischemic ECG changes. Prefers to avoid invasive procedures at this time. Voices concern regarding CKD and use of IV contrast. Agreeable to medical management and further noninvasive evaluation. Discussed remaining hospitalized for inpatient Lexiscan nuclear stress test tomorrow, however, patient prefers discharge at this time as test cannot be performed today. I will see her back for close follow-up next 11/16/2023 to discuss exercise stress testing versus pharmacologic stress test. Continue amlodipine 2.5 mg daily on discharge. Instructed to take an additional 2.5 mg if home systolic blood pressure exceeds 170 mmHg. Continue other cardiovascular indications including low-dose aspirin, statin, lisinopril 20 mg daily, and metoprolol succinate. All questions answered to patient's satisfaction. Thank you for allow me to participate in care of your patient. Carlos A Jeffers DO, [facility] Admission and Anticipated Discharge Date Admission Date: November 06, 2024 Subjective 74-year-old female seen examined at the bedside. Feeling well today although she did not sleep well overnight. Telemetry reveals sinus rhythm without dysrhythmia. No chest discomfort or shortness of breath. Denies orthopnea or PND. No palpitations, lightheadedness, or dizziness. Tolerating addition of amlodipine. Blood pressure well-controlled this a.m. Review of Systems Review of Systems: All systems reviewed & are unremarkable except as noted in Subjective Physical Exam Constitutional: well nourished and + thin; no acute distress Respiratory: no respiratory distress, no labored breathing and no retractions Auscultation: no crackles, no rales, no rhonchi and no wheezes Cardiovascular: Rate/Rhythm: regular rate and regular rhythm Heart Sounds: normal S1 and normal S2; no murmur Vessels: femoral pulses present; + radial pulses abnormal (Absent right radial pulse) Extremities: no edema Gastrointestinal (Abdomen): Inspection/Auscultation: abdomen normal to inspection and normal bowel sounds; abdomen not distended Percussion/Palpation: abdomen soft; abdomen nontender, no guarding and abdomen not rigid Neurologic: CN's II-XI intact bilaterally and moves all extremities; no focal motor deficits Results & Data Vital Signs (Past 12 Hours) Vital Signs Temp Pulse Pulse Resp BP Pulse Ox O2 Del Method 11/08/24 11:15 36.3 C L 60 18 124/73 99 Room Air 11/08/24 07:54 36.3 C L 52 L 20 134/71 11/08/24 07:00 63 11/08/24 03:28 36.5 C 62 16 150/85 H 98 Room Air 11/07/24 23:39 36.8 C 74 18 122/72 94 Room Air Laboratory Results CBC 11/08/24 Range/Units 06:13 WBC 5.37 (4.8-10.8) K/ul RBC 4.26 (4.20-5.40) M/uL Hgb 13.3 (12.0-16.0) g/dl Hct 40.4 (37.0-47.0) % Plt Count 144 (130-400) K/uL Comprehensive Metabolic Panel 11/08/24 Range/Units 06:13 Sodium 138 (136-145) mmol/L Potassium 4.4 (3.5-5.1) mmol/L Chloride 107 (98-107) mmol/L Carbon Dioxide 28 (21-32) mmol/L BUN 26 H (6-23) mg/dl Creatinine 1.35 H (0.6-1.2) mg/dl Glucose 84 (70-99(Fasting)) mg/dl Calcium 8.8 (8.6-10.3) mg/dl Intake and Output 11/07/24 11/08/24 11/08/24 22:59 06:59 14:59 Intake Total 380 / 1384.5 442.5 / 442.5 Output Total 0 / 0 Balance 380 / 1384.5 442.5 / 442.5 Intake: IV 322.5 / 322.5 Heparin 57221 Unit/500 ml D5w 322.5 / 322.5 25,000 units In 500 ml @ 900 UNITS/HR 18 mls/hr IV .Q24H [facility] Rx#:[id number] Oral 380 / 1050 120 / 120 Output: # Bowel Movements 0 / 0 Other: # Unmeasured Voids 0 Weight 52.1 kg Weight Measurement Method Built in [facility]
--- NOTE | 2024-11-08 11:52 | Discharge Summary ---
Date of Service November 08, 2024 Admission HPI Per Admitting Provider 74-year-old female with past medical history significant for hypothyroidism, hypercholesterolemia, Raynaud's disease without gangrene, paroxysmal supraventricular tachycardia, hypertension, mitral valve insufficiency, GERD, CKD stage III, senile osteoporosis, sensorineural hearing loss, history of osteoporosis:, Scleroderma limited, rosacea presents with elevated blood pressure and headache. Patient states her blood pressure is labile. Today systolic blood pressure was in 180s and she is having some mild headaches which prompted her to come to the ER. In the ER after taking her night medications blood pressures improved. Currently headache is improved. Her CAT scan of the head showed deep left cerebral hemisphere focal hypodense area possible artifactual versus other etiology. Patient is getting admitted for MRI scan and monitoring her blood pressure. Currently denies headache. No dizziness. No blurred vision. No runny nose or sore throat. No cough. No chest pain. No shortness of breath. No nausea. No abdominal pain. Normal bowel and bladder movements. Hemodynamics are okay currently. Past medical history. As mentioned above Past surgical history. Colonoscopy. EGD. Total abdominal hysterectomy with removal of tubes. Social history. . No smoking. No alcohol use. No drug use. Family history. Father had skin cancer lung cancer. Angioplasty. Mother had arrhythmia. Admission Exam Per Admitting Provider General- Not in distress Head- atraumatic Eyes- PERRL. ENT- oropharynx clear Neck- supple, no JVD. Lungs- clear to auscultation no wheezing or crackles Heart- regular rhythm; no murmur, no gallop. Abdomen- normal bowel sounds, soft, nontender, no distension Extremities- no pretibial edema, no erythema seen Neuro- alert, oriented PERRL, no facial palsy; no dysarthria; moves extremities Principal Diagnosis Hypertensive urgency Headache secondary to above Discharge Exam General- slim elderly F in NAD Head- atraumatic Eyes- PERRL. Neck- supple, no JVD. Lungs- clear to auscultation no wheezing or crackles Heart- regular rhythm, + syst. murmur Abdomen- normal bowel sounds, soft, nontender, no distension Extremities- no pretibial edema, no erythema seen Neuro- alert, oriented PERRL, no facial palsy; no dysarthria; moves extremities Discharge Data Allergies Allergy/AdvReac Type Severity Reaction Status Date / Time No Known Drug Allergies Allergy Unknown Verified 11/05/24 17:50 Consultations 11/05/24 22:06 ED Decision to Admit Stat 11/06/24 11:16 Consult Cardiology Routine Ordered Studies 11/05/24 17:51 CT head/brain wo con Stat FINDINGS: No intracerebral hematoma or territorial infarction. There is a focal hypodense area in the deep left cerebellar hemisphere mildly abutting the 4th ventricle. ventricular system, cortical sulci and basal cisterns are prominent, consistent with senile changes. The rest of the visualized brain parenchyma shows normal appearance. Schwartz-white matter differentiation is maintained. No midline shifts or deformity. Normal CT appearance of the posterior fossa structures, namely the cerebellar hemispheres, brainstem and cerebellar peduncles. The IACs are unremarkable. The cerebello-pontine angles are clear. The osseous structures in the skull base are unremarkable. No definite calvarium fractures. The scanned paranasal sinuses are clear. IMPRESSION: 1. No acute intracranial abnormality is present. 2. Deep left cerebellar hemisphere focal hypodense area mildly abutting the 4th ventricle, probable artifactual, however other etiologies cannot entirely be ruled out. This is a new finding. Further evaluation with MR recommended. 3. Age-matched involutional brain changes. 11/06/24 05:11 MRI Brain [MR brain wo/w con] Urgent FINDINGS: The upper cervical spinal cord is unremarkable. The sella is not expanded. The cerebellar tonsils extend to the level of the foramen magnum.No areas of restricted diffusion to suggest acute infarct.Scattered areas of T2/FLAIR hyperintensity involving the periventricular and subcortical white matter are nonspecific.No areas of susceptibility artifact to suggest intracranial hemorrhage. No enhancing mass involving the brainstem. A small enhancing masses present in the right internal auditory canal, which expands the internal auditory canal and measures 0.8 x 0.6 cm on series 12 image 32. This favors a small acoustic neuroma/vestibular schwannoma. The left internal auditory canal is clear. Ventricular caliber is appropriate. The fourth ventricle is midline. The basal cisterns are patent. The globes and orbits are unremarkable. The paranasal sinuses and mastoid air cells are clear. IMPRESSION: 1. No acute intracranial findings. No evidence of brainstem infarct or enhancing mass. 2. 0.8 x 0.6 cm enhancing mass in the right internal auditory canal mildly expands the canal. 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 ENT consultation is recommended. 3. Scattered T2/FLAIR hyperintense foci involving the periventricular and subcortical white matter are nonspecific. These lesions are commonly attributed to chronic microvascular ischemic changes with other differential considerations including demyelinating disease or other infectious or inflammatory etiologies. Hospital Course (1) Hypertensive urgency: 74-year-old female with past medical history significant for hypothyroidism, hypercholesterolemia, Raynaud's disease without gangrene, paroxysmal supraventricular tachycardia, hypertension, mitral valve insufficiency, GERD, CKD stage III, senile osteoporosis, sensorineural hearing loss, history of ost eoporosis:, Scleroderma limited, rosacea presents with elevated blood pressure and headache. Patient states her blood pressure is labile. Today systolic blood pressure was in 180s and she is having some mild headaches which prompted her to come to the ER. In the ER after taking her night medications blood pressures improved. Currently headache is improved. Her CAT scan of the head showed deep left cerebral hemisphere focal hypodense area possible artifactual versus other etiology. Patient is getting admitted for MRI scan and monitoring her blood pressure. Currently denies headache. No dizziness. No blurred vision. No runny nose or sore throat. No cough. No chest pain. No shortness of breath. No nausea. No abdominal pain. Normal bowel and bladder movements. Hemodynamics are okay currently. Hypertensive urgency, Elevated troponin, Poss. NSTEMI Came with elevated blood pressure and headache Currently BP improved Headache improved. Amlodipine 2.5 added - AM troponin elevated in 300s, repeat troponin in 600s - Echo - EF 60-65% - + MR - mild hypokinesis of the posterior wall at the base with otherwise normal wall motion - cardiology consulted and discussed with - started IV heparin, continued for 48 hrs Per cardiology - Elevated troponin possibly secondary to hypertensive urgency, coronary vasospasm spasm, stress-induced (atypical Takotsubo), vs acute coronary syndrome. Agree with continuing IV heparin for 48 hours. Discussed invasive versus noninvasive strategy with patient and family at bedside. Currently, patient prefers to avoid repeat cardiac catheterization if possible. Patient prefers discharge at this time as stress test cannot be performed today. I will see her back for close follow-up next 11/16/2023 to discuss exercise stress testing versus pharmacologic stress test. Continue amlodipine 2.5 mg daily on discharge. Instructed to take an additional 2.5 mg if home systolic blood pressure exceeds 170 mmHg. Continue other cardiovascular indications including low-dose aspirin, statin, lisinopril 20 mg daily, and metoprolol succinate. CT head findings: Deep left cerebellar hemisphere focal hypodense area mildly abutting the 4th ventricle, probable artifactual, however other etiologies cannot entirely be ruled out. This is a new finding. Further evaluation with MR recommended. MRI head - 1. No acute intracranial findings. No evidence of brainstem infarct or enhancing mass. 2. 0.8 x 0.6 cm enhancing mass in the right internal auditory canal mildly expands the canal. 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 ENT consultation is recommended. 3. Scattered T2/FLAIR hyperintense foci involving the periventricular and subcortical white matter are nonspecific. These lesions are commonly attributed to chronic microvascular ischemic changes with other differential considerations including demyelinating disease or other infectious or inflammatory etiologies. - discussed w/ pt - she is aware , already follows w/ ENT - outpt ENT follow up History of scleroderma/crest syndrome Seems stable per records GERD On Protonix Hypothyroidism On Synthyroid TSH 3.8 wnl Hyperlipidemia Statin Total Time Total Time Spent Total Time Spent (In Minutes): 40 Discharge Plan Discharge Items Patient Disposition: Home - Self-Care Reason For Visit: HTN URGENCY, HEADACHE Discharge Diagnosis: Hypertensive urgency Headache secondary to above Activity: Per Instructions section Non-emergency contact: Primary Care Provider and Actor Understudy Call non-emergency contact if: you have any medication questions and your symptoms worsen Follow-up/Referrals: Jah Manriquez DO [Primary Care Provider] - Diet: Heart Healthy Addtl Attending Provider Instructions: Follow up with your primary care doctor and floor helper. The appointment with cardiology will be scheduled for you for 11/15/2024. Continue taking metoprolol, and lisinopril. Start taking amlodipine 2.5 mg daily. Monitor your blood pressure and record your numbers, then discuss with your health care providers to see if any medications need changed or adjusted. Pending Studies at Discharge: No Stand-Alone Forms: My [facility] [employer], Smoking Cessation Medications and DC Order Prescriptions: New amlodipine [Norvasc] 5 mg Tablet 2.5 mg PO QAM Qty: 30 0RF Continued pantoprazole 40 mg tablet,delayed release (DR/EC) 40 mg PO QDL levothyroxine 50 mcg tablet 50 mcg PO DAILYBB aspirin 81 mg Tablet,Delayed Release (Dr/Ec) 81 mg PO QAM Qty: 30 0RF lisinopril 20 mg tablet 20 mg PO QAM metoprolol succinate 25 mg tablet extended release 24 hr 12.5 mg PO AMHS atorvastatin 10 mg tablet 10 mg PO QDL Multivitamin Women 50 Plus 8 mg iron-400 mcg-50 mcg Tablet 1 tab PO DAILY Discharge Orders: Discharge Order (Routine); Ordered 11/08/24 Ordered By: Dameon Rowley Admission Data Admit Date/Time: 11/06/24 02:54 Attending Provider: Dameon Rowley Admit Provider: Matt Lai Primary Care Provider: Jah Manriquez Other Providers: Matt Lai; Jay oJnes
[2024-11-08 12:09] VITALS: PULSE 65
--- NOTE | 2024-11-08 14:53 | Electrocardiogram Report ---
Test Reason : Blood Pressure : */* mmHG Vent. Rate : 52 BPM Atrial Rate : 52 BPM P-R Int : 132 ms QRS Dur : 66 ms QT Int : 444 ms P-R-T Axes : 45 -43 8 degrees QTcB Int : 412 ms Sinus bradycardia Left axis deviation Anterior infarct (cited on or before 07-Nov-2024) Abnormal ECG Confirmed by Andres Kearney ([id number]) on 11/08/2024 2:53:16 PM Referred By: REFERRED SELF Confirmed By: Andres Kearney
== END 2024-11-08 13:26 | disposition home or self-care (01) | DRG 305 ==
LOC: ED 17:32 → 2W 11-06 02:54